=== PATIENT | female | born 1945 | race Caucasian/White ===

== ENCOUNTER → 2016-09-22 | Outpatient (CLI) | payer MEDICARE ==
--- NOTE | 2016-09-22 14:47 | MM ---
Reason for exam: additional evaluation requested from prior study. Last mammogram was performed 1 year ago. History: Patient is postmenopausal. Family history of breast cancer in sister at age 44, breast cancer in maternal aunt, and breast cancer in paternal aunt. Benign MG stereo VAD BX LT of the left breast, October 02, 2015. Benign left mammotome panel of the left breast, May 30, 2010. Benign right mammotome panel of the right breast, December 24, 2005. Physical Findings: Nurse did not find any significant physical abnormalities on exam. MG 3D Diag Mammo W/Cad NIKOLAI Bilateral CC and MLO view(s) were taken. Prior study comparison: September 26, 2015, left breast MG work up mamm w CAD LT. September 13, 2015, bilateral MG 3d screening mammo w/cad. There are scattered fibroglandular densities. Finding: There are typically benign calcifications in both breasts. Previous mammotome biopsy in the right and left breast. These results were verbally communicated with the patient and result sheet given to the patient on 09/22/16. ASSESSMENT: Benign, BI-RAD 2 RECOMMENDATION: Routine screening mammogram of both breasts in 1 year. Manage patient on a clinical basis.
== END | disposition home or self-care (01) ==
LOC: RADMAMWWP 13:18
PROVIDERS: ATTEND Internal Medicine
DX: R92.8 Other abnormal and inconclusive findings on diagnostic imaging of breast (principal)
CPT/HCPCS: G0204; G0279

== ENCOUNTER → 2016-10-29 | Outpatient (CLI) | payer MEDICARE ==
--- NOTE | 2016-10-29 15:07 | XR ---
EXAMINATION TYPE: XR lumbosacral spine min 4V DATE OF EXAM: 10/29/2016 CLINICAL HISTORY: pain COMPARISON: NONE TECHNIQUE: Frontal, lateral, and oblique images of the lumbar spine are obtained. FINDINGS: There are 5 lumbar type vertebral bodies identified. The lumbar spine shows satisfactory alignment without evidence of acute fracture or dislocation. Vertebral body heights are within normal limits. Severe disc space narrowing at L5-S1 with vacuum discs. Mild degenerative narrowing at the r emaining levels. Severe lower lumbar facet joint arthropathy. Grade 1 anterolisthesis L4 and L5. Th e overlying soft tissue appears unremarkable. IMPRESSION: 1. Degenerative changes as noted. 2. Grade 1 anterolisthesis.
== END | disposition home or self-care (01) ==
LOC: RADXRYALE 10:22
PROVIDERS: ATTEND Internal Medicine
DX: M43.17 Spondylolisthesis, lumbosacral region (principal); M47.817 Spondylosis without myelopathy or radiculopathy, lumbosacral region; M54.32 Sciatica, left side
CPT/HCPCS: 72110

== ENCOUNTER → 2018-04-02 | Outpatient (CLI) | payer MEDICARE ==
--- NOTE | 2018-04-02 11:04 | CT ---
EXAMINATION TYPE: CT brain wo/w con DATE OF EXAM: 04/02/2018 COMPARISON: 10/07/2014 CT brain INDICATION: Headaches DLP: 2108.4 mGycm, Automated exposure control for dose reduction was used. CONTRAST: None CT of the brain is performed utilizing 3 mm thick sections through the posterior fossa and 3 mm thick sections through the remaining calvarium. Study is performed within 24 hours of arrival to the hosp ital. No abnormal hyperdensity is present to suggest an acute intracranial hemorrhage. No mass lesion is evident. No acute infarcts are evident. Ventricles and sulci are appropriate for the patient age. No abnormal enhancement is evident. Paranasal sinuses and mastoid air cells within the [id number] are clear. IMPRESSIONS: 1. Normal pre and postcontrast CT Brain
== END | disposition home or self-care (01) ==
LOC: RADCTMAIN 08:11
PROVIDERS: ATTEND Internal Medicine
DX: G44.85 Primary stabbing headache (principal)
CPT/HCPCS: 82565; 84520; 70470; 36415; Q9967

== ENCOUNTER 2018-08-03 12:48 | Day surgery (SDC) | payer MEDICARE ==
[~2018-08-03 12:48] MED LIST: ceFAZolin IN SWFI 2 GM/20 ML SYRINGE IVP STA
[2018-08-03 13:14] VITALS: RESP 18; TEMP 98.1
[2018-08-03 13:46] LABS: INR 4.3 (<1.2); Prothrombin Time 41.7 sec (9.0-12.0)
[2018-08-03] MEDS ORDERED: LIDOCAINE 1% INJ 10MG/ML (20 ML MDV) ONE ×2 (17:01→17:09)
[2018-08-03] MEDS ORDERED: LIDOCAINE 1% INJ 10MG/ML (20 ML MDV) SQ ONE (17:18)
--- NOTE | 2018-08-03 17:26 | P.PCN ---
Preoperative Diagnosis: Loop explant under sedation and local anesthesia. Patient was brought to the EP lab in a fasting state. Written informed consent was obtained prior to the procedure. The subcutaneous device was successfully explanted under local anesthesia. Preoperative antibiotics were administered. The wound was closed in layers and dressed per protocol. Result: Successful loop monitor explantation. Patient underwent EP procedure under conscious sedation/moderate sedation, monitoring of the level of consciousness and physiologic parameters including but not limited to vital signs and oxygenation. Patient tolerated the procedure well without any acute complications. Start time: 517 Stop time: 524
[2018-08-03 17:46] VITALS: BP 183/84; PULSE 70
== END 2018-08-03 17:43 | disposition home or self-care (01) ==
LOC: CATHEP 12:48
PROVIDERS: ATTEND Internal Medicine Clinical Cardiac Electrophysiology
DX: I48.0 Paroxysmal atrial fibrillation (principal); I10 Essential (primary) hypertension; E78.5 Hyperlipidemia, unspecified
CPT/HCPCS: 33286; 85610; J0690 ×2; J2001

== ENCOUNTER 2019-10-02 15:19 | Emergency (ER) | payer MEDICARE ==
[2019-10-02 15:28] VITALS: TEMP 97.9
--- NOTE | 2019-10-02 16:47 | CT ---
EXAMINATION TYPE: CT brain [place] wo con DATE OF EXAM: 10/02/2019 COMPARISON: 10/07/2014 HISTORY: Fall injury Headache. Neck pain CT DLP: 1571.2 mGycm Automated exposure control for dose reduction was used. Images of the cervical spine and brain performed with no contrast. Ventricles have normal size. There is no mass effect nor midline shift. There is no sign of intracran ial hemorrhage. The calvarium is intact. There is no evidence of cerebral edema. The skull base is in tact. There is incomplete pneumatization of the mastoid sinuses. Cervical vertebra have normal alignment. There is mild hypertrophic facet arthropathy in the mid and lower cervical spine. There is no significant cervical spine disc space narrowing. Prevertebral soft tissues are intact. IMPRESSION: Negative CT scan of the brain. No change. Mild spondylotic changes in the cervical spine. No fracture seen. No adverse change. Articular facet fractures at C6-7 on the left side appear to have healed compared to old exam.
[2019-10-02] MEDS ORDERED: MORPHINE SULFATE 4 MG/ML SYRINGE IVP STA (16:57)
--- NOTE | 2019-10-02 16:57 | ED ---
Fall HPI - General Chief Complaint: Fall Stated Complaint: Fall Time Seen by Provider: 10/02/19 15:24 Source: patient, EMS Mode of arrival: EMS - History of Present Illness Initial Comments: This is a 74-year-old female DF status post fall fall her right side on Coumadin. Fall from standing she doesn't think she hit her head no loss of consciousness. No neck pain is complaining of right shoulder pain severe. 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: yes, by family Place Fall Occurred: home Loss of Consciousness: none Prolonged Down Time?: no Symptoms Prior to Fall: none Location - Extremities: Right: Shoulder Severity: severe Severity scale (1-10): 7 Quality: stabbing Context: tripped/slipped Associated Symptoms: denies - Related Data Home Medications Medication Instructions Recorded Confirmed Atorvastatin [Lipitor] 20 mg PO HS 10/07/14 08/03/18 Citalopram Hydrobromide [CeleXA] 20 mg PO HS 10/07/14 08/03/18 Omeprazole [PriLOSEC] 20 mg PO QAM 10/07/14 08/03/18 Propafenone HCl [Rythmol] 150 mg PO TID 10/07/14 08/03/18 lisinopriL [Zestril] 5 mg PO BID 10/07/14 08/03/18 Aspirin EC [Ecotrin Low Dose] 81 mg PO HS 02/28/15 08/03/18 Metoprolol Succinate [Toprol XL] 50 mg PO HS 02/28/15 08/03/18 Warfarin [Coumadin] 5 mg PO HS 08/03/18 08/03/18 Allergies Allergy/AdvReac Type Severity Reaction Status Date / Time No Known Allergies Allergy Verified 03/01/15 11:34 Review of Systems ROS Statement: Those systems with pertinent positive or pertinent negative responses have been documented in the HPI. ROS Other: All systems not noted in ROS Statement are negative. 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 History of Any Multi-Drug Resistant Organisms: None Reported Past Surgical History: Appendectomy, Cardiac Ablation, Cholecystectomy, Heart Catheterization, Hysterectomy Additional Past Surgical History / Comment(s): LOOP RECORDER X2. Past Anesthesia/Blood Transfusion Reactions: No Reported Reaction Additional Past Anesthesia/Blood Transfusion Reaction / Comment(s): PTS SISTER HAD SEVERE SWELLING WITH A BLOOD TRANSFUSION. Past Psychological History: Depression Smoking Status: Never smoker Past Alcohol Use History: None Reported Past Drug Use History: None Reported - Past Family History Sister(s) Family Medical History: Cancer Additional Family Medical History / Comment(s): BREAST CANCER WITH METS, ARRYTHMIA Brother(s) Additional Family Medical History / Comment(s): (2) BROTHERS- ARRYTHMIA General Exam Limitations: no limitations General appearance: alert, in no apparent distress Head exam: Present: atraumatic, normocephalic, normal inspection Eye exam: Present: normal appearance, PERRL, EOMI. Absent: scleral icterus, conjunctival injection, periorbital swelling ENT exam: Present: normal exam, mucous membranes moist Neck exam: Present: normal inspection. Absent: tenderness, meningismus, lymphadenopathy Respiratory exam: Present: normal lung sounds bilaterally. Absent: respiratory distress, wheezes, rales, rhonchi, stridor Cardiovascular Exam: Present: regular rate, normal rhythm, normal heart sounds. Absent: systolic murmur, diastolic murmur, rubs, gallop, clicks GI/Abdominal exam: Present: soft, normal bowel sounds. Absent: distended, tenderness, guarding, rebound, rigid Extremities exam: Present: normal inspection, full ROM, normal capillary refill. Absent: tenderness, pedal edema, joint swelling, calf tenderness Back exam: Present: normal inspection Neurological exam: Present: alert, oriented X3, CN II-XII intact Psychiatric exam: Present: normal affect, normal mood Skin exam: Present: warm, dry, intact, normal color. Absent: rash Course Vital Signs 10/02/19 10/02/19 15:20 17:36 Temperature 97.9 F Pulse Rate 70 72 Respiratory 17 18 Rate Blood Pressure 152/95 O2 Sat by Pulse 98 97 Oximetry - Reevaluation(s) Reevaluation #1: 10/02/19 16:57 Medical records reviewed Reevaluation #2: 10/02/19 17:56 Patient has adequate pain control Procedures - Orthopedic Splinting/Casting Injury #1 Side: right Upper Extremity Injury Location: shoulder Upper Extremity Immobilizer: sling/shoulder immobilizer Medical Decision Making - Medical Decision Making 74 female status post trip and fall at [facility] complaining of right shoulder pain right humerus fracture patient can be discharged home placed in sling - Radiology Data Radiology results: report reviewed (CT brain C-spine negative x-ray right shoulder positive for humerus fracture), image reviewed Disposition Clinical Impression: Fall, Closed right humeral fracture Disposition: HOME SELF-CARE Condition: Good Instructions (If sedation given, give patient instructions): Fall Prevention for Older Adults (ED), Proximal Humerus Fracture (ED) Is patient prescribed a controlled substance at d/c from ED?: No Referrals: Balta Galindo MD [STAFF PHYSICIAN] - 1-2 days
--- NOTE | 2019-10-02 17:34 | XR ---
EXAMINATION TYPE: XR shoulder complete RT DATE OF EXAM: 10/02/2019 COMPARISON: NONE HISTORY: Pain TECHNIQUE: 3 views FINDINGS: There is nondisplaced transverse fracture of the humeral neck. There is slight impaction. T here is no dislocation. Scapula is intact. The AC joint is intact. IMPRESSION: Acute slightly impacted nondisplaced fracture of the humeral neck.
--- NOTE | 2019-10-02 17:35 | XR ---
EXAMINATION TYPE: XR chest 1V DATE OF EXAM: 10/02/2019 COMPARISON: 12/10/2012 HISTORY: Fall. Pain. TECHNIQUE: FINDINGS: There is no heart failure nor confluent pneumonic infiltrate. Costophrenic angles are clear . Thoracic aorta is atheromatous. The bony thorax is intact. There is no evidence of pneumothorax. IMPRESSION: No active cardiopulmonary disease. No change.
[2019-10-02 17:36] VITALS: RESP 18
[2019-10-02] MEDS ORDERED: traMADol 50 MG STARTER PACK 3 TAB BTL PO STA (17:54)
[2019-10-02] MEDS ORDERED: ACET/COD 300 MG/30 MG STARTER PACK 6 TAB BTL PO STA (17:54)
[2019-10-02] MEDS ORDERED: KETOROLAC 15 MG/ML 1 ML VIAL IVP STA (17:54)
[2019-10-02 18:21] VITALS: BP 150/77; PULSE 64
== END 2019-10-02 18:26 | disposition home or self-care (01) ==
LOC: EC 15:19
DX: S42.294A Other nondisplaced fracture of upper end of right humerus, initial encounter for closed fracture (principal); F32.9 Major depressive disorder, single episode, unspecified; I48.92 Unspecified atrial flutter; K21.9 Gastro-esophageal reflux disease without esophagitis; E78.5 Hyperlipidemia, unspecified; I10 Essential (primary) hypertension; Z79.899 Other long term (current) drug therapy; Z79.01 Long term (current) use of anticoagulants; Z95.5 Presence of coronary angioplasty implant and graft; W18.30XA Fall on same level, unspecified, initial encounter; Y92.512 Supermarket, store or market as the place of occurrence of the external cause
CPT/HCPCS: 73030; 71045; 72125; 70450; 99284; 96374; 96375; J2270; J1885

== ENCOUNTER → 2019-11-01 | Outpatient (CLI) | payer MEDICARE ==
[2019-11-01 15:19] LABS: HCT 32.7 % (34.0-46.0); HGB 10.4 gm/dL (11.4-16.0); Hypochromasia Slight; MCH 28.6 pg (25.0-35.0); MCHC 31.6 g/dL (31.0-37.0); MCV 90.3 fL (80.0-100.0); Mean Platelet Volume 8.1; Platelet Count 226 k/uL (150-450); RBC 3.62 m/uL (3.80-5.40); RDW 14.7 % (11.5-15.5); WBC 5.5 k/uL (3.8-10.6)
[2019-11-01 15:32] LABS: Magnesium 1.9 mg/dL (1.6-2.3)
== END | disposition home or self-care (01) ==
LOC: LABPAT 14:51
PROVIDERS: ATTEND Internal Medicine Clinical Cardiac Electrophysiology
DX: Z01.818 Encounter for other preprocedural examination (principal); R55 Syncope and collapse
CPT/HCPCS: 82565; 83735; 84520; 85027

== ENCOUNTER → 2019-11-07 | Day surgery (SDC) | payer MEDICARE ==
[2019-11-04 09:23] VITALS: BMI 30.1
[~2019-11-07] MED LIST changes: +LIDOCAINE 1% INJ 10MG/ML (20 ML MDV) SQ ONE; +SODIUM CHLORIDE 0.9% 1,000 ML IV SCH; -ceFAZolin IN SWFI 2 GM/20 ML SYRINGE IVP STA; +fentaNYL (PF) 50 MCG/ML 2 ML AMP IVP ONE; +fentaNYL (PF) 50 MCG/ML 2 ML AMP ONE
[2019-11-07 07:58] VITALS: RESP 18; TEMP 98.5
[2019-11-07 08:06] LABS: INR 1.8 (<1.2)
--- NOTE | 2019-11-07 10:37 | P.PCN ---
Preoperative Diagnosis: Loop monitor implant Primary physicians: Process Specialist: Dr. Chamorro Indication: Dr. Claros Patient was brought to the EP lab in a fasting state. Written informed consent was obtained prior to the procedure. The left pectoral area was prepped and draped per protocol. Intravenous antibiotic was administered preoperatively. A subcutaneous Loop monitor was implanted successfully and the wound was closed per protocol. The device was programmed to detect significant lara- arrhythmic and tachy-arrhythmic events, per protocol. Device and programming details: Single a protocol Patient underwent EP procedure under conscious sedation/moderate sedation, monitoring of the level of consciousness and physiologic parameters including bu t not limited to vital signs and oxygenation. Patient tolerated the procedure well without any acute complications. Start time: 1022 Stop time: 1031
--- NOTE | 2019-11-07 10:39 | P.PRLE ---
RE: Yoselin Vaz Dear Chasitybrandie Wyatt underwent implantation of loop monitor for evaluation of syncope and we have made adjustments in her medications and if she has any tachybradycardia ar rhythmias I will send you a follow-up note. She does have a history of anemia and is on anticoagulation Thank you for entrusting me with the care of the patient Warm regards Sincerely John Chamorro
[2019-11-07 10:59] VITALS: BP 119/69; PULSE 68
== END ==
LOC: CATHEP 07:13
PROVIDERS: ATTEND Internal Medicine Clinical Cardiac Electrophysiology
DX: R55 Syncope and collapse (principal); R06.02 Shortness of breath; R53.83 Other fatigue; I48.0 Paroxysmal atrial fibrillation; I10 Essential (primary) hypertension; E78.5 Hyperlipidemia, unspecified; Z87.891 Personal history of nicotine dependence; Z79.01 Long term (current) use of anticoagulants; Z82.49 Family history of ischemic heart disease and other diseases of the circulatory system; Z72.0 Tobacco use; Z79.82 Long term (current) use of aspirin; Z79.899 Other long term (current) drug therapy
CPT/HCPCS: 33285; 85610; C1764; J0690; J2001; J3010

== ENCOUNTER → 2020-05-28 | Outpatient (CLI) | payer MEDICARE | END | disposition home or self-care (01) | LOC: LABWHC1 17:01 | PROVIDERS: ATTEND Internal Medicine | DX: R50.9 Fever, unspecified (principal); M79.10 Myalgia, unspecified site | CPT/HCPCS: U0003; C9803 ==

== ENCOUNTER → 2020-07-06 | Outpatient (CLI) | payer MEDICARE ==
[2020-07-06 20:52] LABS: African American GFR (CKD) 84.8 (60.0-200.0); Albumin/Globulin Ratio 1.82 (1.60-3.17); Calcium 8.8 mg/dL (8.7-10.3); Globulin 2.2 g/dL (1.6-3.3); Non-African American GFR(CKD) 73.1 (60.0-200.0); Potassium 4.3 mmol/L (3.5-5.5); Total Bilirubin 0.8 mg/dL (0.2-1.2); Total Protein 6.2 g/dL (6.2-8.2)
== END | disposition home or self-care (01) ==
LOC: LABWHC1 12:07
PROVIDERS: ATTEND Internal Medicine Clinical Cardiac Electrophysiology
DX: I48.0 Paroxysmal atrial fibrillation (principal)
CPT/HCPCS: 36415; 80053

== ENCOUNTER → 2020-12-20 | Outpatient (CLI) | payer MEDICARE ==
--- NOTE | 2020-12-21 07:58 | XR ---
EXAMINATION TYPE: XR chest 2V DATE OF EXAM: 12/20/2020 COMPARISON: 10/02/2019 INDICATION: Cough TECHNIQUE: Frontal and lateral views of the chest are obtained. FINDINGS: The heart size is normal. The pulmonary vasculature is normal. The lungs are clear. There is a rounded density in the frontal projection at the midline may be a sm all hiatal hernia. Heart is not identified on the lateral view. IMPRESSION: 1. No acute pulmonary process. 2. Hiatal hernia likely present.
== END | disposition home or self-care (01) ==
LOC: RADXRYALE 16:20
PROVIDERS: ATTEND Internal Medicine
DX: R05.9 Cough, unspecified (principal)
CPT/HCPCS: 71046

== ENCOUNTER 2021-05-13 23:18 | Inpatient (IN) | payer MEDICARE ==
[2021-05-13] MEDS ORDERED: DILTIAZEM DRIP BOLUS FROM BAG 1 MG SOLN IV ONE (23:23)
--- NOTE | 2021-05-13 23:26 | ED ---
General Adult HPI - General Stated complaint: high heart rate Time Seen by Provider: 05/13/21 23:23 Source: patient, EMS, old records reviewed (Reviewed EMS rhythm strips) Mode of arrival: EMS Limitations: no limitations - History of Present Illness Initial comments: Patient is a pleasant 75-year-old female presenting to the emergency Department with palpitations. Onset of symptoms was around 3 hours ago. No chest pain. No dyspnea. Patient does have some fatigue. Patient does have history of similar symptoms previously and has previously been cardioverted. EMS provided adenosine 3 doses. Heart rate was slow down without visualized fibrillation. - Related Data Home Medications Medication Instructions Recorded Confirmed Atorvastatin [Lipitor] 40 mg PO HS 10/07/14 11/04/19 Citalopram Hydrobromide [CeleXA] 20 mg PO HS 10/07/14 11/07/19 Omeprazole [PriLOSEC] 20 mg PO BID 10/07/14 11/07/19 Propafenone HCl [Rythmol] 150 mg PO BID 10/07/14 11/07/19 lisinopriL [Zestril] 10 mg PO HS 10/07/14 11/07/19 Aspirin EC [Ecotrin Low Dose] 81 mg PO HS 02/28/15 11/04/19 Metoprolol Succinate [Toprol XL] 25 mg PO HS 02/28/15 11/07/19 Warfarin [Coumadin] 2.5 mg PO [id number] 08/03/18 11/07/19 Calcium Carbonate [Calcium] 1,200 mg PO DAILY 11/04/19 11/07/19 Warfarin [Coumadin] 5 mg PO SUTH 11/04/19 11/07/19 Allergies Allergy/AdvReac Type Severity Reaction Status Date / Time No Known Allergies Allergy Verified 05/13/21 23:25 Review of Systems ROS Statement: Those systems with pertinent positive or pertinent negative responses have been documented in the HPI. ROS Other: All systems not noted in ROS Statement are negative. Constitutional: Denies: fever Eyes: Denies: eye pain ENT: Denies: ear pain Respiratory: Denies: dyspnea Cardiovascular: Reports: palpitations. 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 Past Anesthesia/Blood Transfusion Reactions: No Reported Reaction, Motion Sickness Additional Past Anesthesia/Blood Transfusion Reaction / Comment(s): PTS SISTER HAD SEVERE SWELLING WITH A BLOOD TRANSFUSION. Smoking Status: Never smoker - Past Family History Sister(s) Family Medical History: Cancer, Myocardial Infarction ([place]) Additional Family Medical History / Comment(s): BREAST CANCER WITH METS, ARRYTHMIA Brother(s) Additional Family Medical History / Comment(s): (3) BROTHERS- ARRYTHMIA General Exam Limitations: no limitations General appearance: alert, in no apparent distress Head exam: Present: normocephalic Eye exam: Present: normal appearance Neck exam: Present: normal inspection Respiratory exam: Present: normal lung sounds bilaterally Cardiovascular Exam: Present: tachycardia Expanded Peripheral pulses: 2+: Radial (R), Radial (L), Posterior Tibialis (R), Posterior Tibialis (L) GI/Abdominal exam: Present: soft. Absent: tenderness Extremities exam: Present: normal inspection Neurological exam: Present: alert Psychiatric exam: Present: normal affect, normal mood Skin exam: Present: normal color Course Vital Signs 05/13/21 23:19 Temperature 97.6 F Pulse Rate 190 H Respiratory 24 Rate Blood Pressure 115/82 O2 Sat by Pulse 96 Oximetry - Reevaluation(s) Reevaluation #1: 05/14/21 00:01 H a flutter with rate of 101. QRS 87. QT 355. QTC 413. Normal axis. Normal QRS. No acute ST change. EKG Findings - EKG Comments: EKG Findings:: tachycardia 3-192. QRS 80. QT 224. QTC 322. Normal axis. Normal QRS. Lateral ST depression. Medical Decision Making - Medical Decision Making Patient reevaluated and updated. Heart rate improved. Patient remains in atr ial flutter. Dr. Samuels has been paged for admission for Dr. Claros - Lab Data Result diagrams: 05/13/21 23:38 Lab Results 05/13/21 05/13/21 05/13/21 Range/Units 23:38 23:38 23:38 WBC 6.3 (3.8-10.6) k/uL RBC 4.16 (3.80-5.40) m/uL Hgb 13.0 (11.4-16.0) gm/dL Hct 39.6 (34.0-46.0) % MCV 95.0 (80.0-100.0) fL MCH 31.2 (25.0-35.0) pg MCHC 32.8 (31.0-37.0) g/dL RDW 13.8 (11.5-15.5) % Plt Count 183 (150-450) k/uL MPV 9.3 Neutrophils % 55 % Lymphocytes % 33 % Monocytes % 6 % Eosinophils % 3 % Basophils % 2 % Neutrophils # 3.5 (1.3-7.7) k/uL Lymphocytes # 2.0 (1.0-4.8) k/uL Monocytes # 0.4 (0-1.0) k/uL Eosinophils # 0.2 (0-0.7) k/uL Basophils # 0.1 (0-0.2) k/uL PT 13.9 H (9.0-12.0) sec INR 1.3 H (<1.2) APTT 35.2 H (22.0-30.0) sec Troponin I 0.047 H* (0.000-0.034) ng/mL - Radiology Data Radiology results: image reviewed (Chest x-ray does show some increased interstitial density.) Critical Care Time Critical Care Time: Yes Total Critical Care Time: 33 Disposition Clinical Impression: Atrial flutter, Tachycardia Disposition: ADMITTED IP TO THIS [facility] Condition: Serious Is patient prescribed a controlled substance at d/c from ED?: No Referrals: Chasity Claros MD [Primary Care Provider] - 1-2 days Decision Time: 00:31
[2021-05-13] MEDS ORDERED: DILTIAZEM 125 MG in SODIUM CHLORIDE 0.9% 100 ML IV SCH (23:30)
[2021-05-13 23:46] LABS: Basophils # (A) 0.1 k/uL (0-0.2); Basophils % (A) 2 %; Eosinophils # (A) 0.2 k/uL (0-0.7); Eosinophils % (A) 3 %; HCT 39.6 % (34.0-46.0); Lymphocytes % (A) 33 %; MCH 31.2 pg (25.0-35.0); MCHC 32.8 g/dL (31.0-37.0); Mean Platelet Volume 9.3; Monocytes # (A) 0.4 k/uL (0-1.0); Monocytes % (A) 6 %; Neutrophils # (A) 3.5 k/uL (1.3-7.7); Neutrophils % (A) 55 %; Platelet Count 183 k/uL (150-450); RBC 4.16 m/uL (3.80-5.40); RDW 13.8 % (11.5-15.5); WBC 6.3 k/uL (3.8-10.6)
--- NOTE | 2021-05-13 23:58 | XR ---
EXAMINATION TYPE: XR chest 1V portable DATE OF EXAM: 05/13/2021 COMPARISON: 12/20/2020 HISTORY: Dysrhythmia TECHNIQUE: FINDINGS: Heart is enlarged. There is hiatal hernia. Lungs are clear of consolidation. There is some coarsening of interstitial markings IMPRESSION: Increased interstitial density compared to old exam. This could be some minimal heart amish lure.
[2021-05-14 00:21] LABS: INR 1.3 (<1.2); Partial Thromboplastin Time 35.2 sec (22.0-30.0); Prothrombin Time 13.9 sec (9.0-12.0)
[2021-05-14] MEDS ORDERED: HEPARIN SODIUM 1,000 UN/ML (10ML VL) IV PRN (00:28)
[2021-05-14] MEDS ORDERED: HEPARIN SOD,PORK IN 0.45% NACL 25,000 UNIT in 0.45% NACL 1 250ML.BAG IV SCH (00:30)
[2021-05-14] MEDS ORDERED: NALOXONE 0.4 MG/ML 1 ML VIAL IV PRN (00:31)
[2021-05-14 00:54] LABS: Albumin 3.9 g/dL (3.5-5.0); Calcium 8.6 mg/dL (8.4-10.2); Magnesium 1.9 mg/dL (1.6-2.3); Potassium 3.5 mmol/L (3.5-5.1); Total Bilirubin 0.5 mg/dL (0.2-1.3); Total Protein 6.6 g/dL (6.3-8.2)
[2021-05-14 01:10] LABS: T4, Free (Free Thyroxine) 1.37 ng/dL (0.78-2.19)
[2021-05-14] MEDS: ACETAMINOPHEN TAB 325 MG TAB PO PRN ×2 (09:04→15:41)
[2021-05-14] MEDS: METOPROLOL TARTRATE 25 MG TAB PO SCH ×3 (09:04→20:11)
[2021-05-14] MEDS: RIVAROXABAN 20 MG TAB PO SCH ×2 (09:04→09:08)
[2021-05-14] MEDS: PROPAFENONE 150 MG TAB PO SCH ×2 (09:18→20:11)
--- NOTE | 2021-05-14 10:42 | P.HPIM ---
History of Present Illness This is a pleasant 75 his old female with past medical history off Atrial Flutte XARELTO AND PROPAFENONE status post cardiac ablation procedure, GERD/Reflux, Hyperlipidemia, Hypertension,fx rt shoulder 10/02/19 wears sling She presents because she did not feel right, she was dizzy lightheaded with only minimal and mild chest discomfort which is resolved now, currently she is complaining only for mild headache. Patient checked her pulse at home at noticed to be passed so she decided to come to emergency room She denies dyspnea or coughing, no GI or urinary symptoms, no weakness or numbness She denies smoking, alcohol or illicit drugs She was compliant with her medication Her sterile technician is Dr. Leal On the presentation she was tachycardic 190, heart rate currently improved down to 82, rest of vitals are stable and patient is afebrile. Labs including CBC, INR, BMP and liver enzymes are unremarkable. Troponin elevated 0.04 and 0.2. TSH normal 1.8. EKG showing supraventricular tachycardia with a rate of 192. Chest x-ray: Showed possible minimal heart failure with increased bilateral interstitial densities Patient was started on Cardizem drip Review of Systems CONSTITUTIONAL: No fever, no malaise, no fatigue. HEENT: No recent visual problems or hearing problems. Denied any sore throat. CARDIOVASCULAR: No orthopnea, PND, no palpitations, no syncope. PULMONARY: No shortness of breath, no cough, no hemoptysis. GASTROINTESTINAL: No diarrhea, no nausea, no vomiting, no abdominal pain. Normoactive bowel sounds. NEUROLOGICAL: No headaches, no weakness, no numbness. HEMATOLOGICAL: Denies any bleeding or petechiae. GENITOURINARY: Denies any burning micturition, frequency, or urgency. MUSCULOSKELETAL/RHEUMATOLOGICAL: Denies any joint pain, swelling, or any muscle pain. ENDOCRINE: Denies any polyuria or polydipsia. 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 Past Anesthesia/Blood Transfusion Reactions: No Reported Reaction, Motion Si ckness Additional Past Anesthesia/Blood Transfusion Reaction / Comment(s): PTS SISTER HAD SEVERE SWELLING WITH A BLOOD TRANSFUSION. Past Psychological History: Depression Smoking Status: Never smoker Past Alcohol Use History: None Reported Past Drug Use History: None Reported - Past Family History Sister(s) Family Medical History: Cancer, Myocardial Infarction ([place]) Additional Family Medical History / Comment(s): BREAST CANCER WITH METS, ARRYTHMIA Brother(s) Additional Family Medical History / Comment(s): (3) BROTHERS- ARRYTHMIA Medications and Allergies Home Medications Medication Instructions Recorded Confirmed Type Atorvastatin [Lipitor] 40 mg PO HS 10/07/14 05/14/21 History Citalopram Hydrobromide [CeleXA] 20 mg PO HS 10/07/14 05/14/21 History Omeprazole [PriLOSEC] 20 mg PO BID 10/07/14 05/14/21 History Propafenone HCl [Rythmol] 150 mg PO BID 10/07/14 05/14/21 History Salas/D3/Mag11/Zinc/Acid Correction Hand/John/Bor 1 tab PO BID 05/14/21 05/14/21 History [Caltrate 600+D Plus Tablet] Metoprolol Succinate [Toprol XL] 12.5 mg PO HS 05/14/21 05/14/21 History Rivaroxaban [Xarelto] 20 mg PO DAILY 05/14/21 05/14/21 History lisinopriL [Zestril] 10 mg PO HS 05/14/21 05/14/21 History Allergies Allergy/AdvReac Type Severity Reaction Status Date / Time No Known Allergies Allergy Verified 05/13/21 23:25 Physical Exam Vitals: Vital Signs Temp Pulse Pulse Resp BP BP Pulse Ox 05/14/21 08:00 98 F 82 18 122/78 93 L 05/14/21 03:34 98.1 F 64 18 100/56 98 05/14/21 01:15 97.7 F 104 H 18 120/79 96 05/14/21 01:10 98 F 100 22 112/78 97 05/13/21 23:19 97.6 F 190 H 24 115/82 96 Intake and Output 05/13/21 05/14/21 05/14/21 22:59 06:59 14:59 Other: # Voids 1 Weight 106.1 kg GENERAL: The patient is alert and oriented x3, not in any acute distress. Well developed, well nourished. HEENT: Pupils are round and equally reacting to light. EOMI. No scleral icterus. No conjunctival pallor. Normocephalic, atraumatic. No pharyngeal erythema. No thyromegaly. CARDIOVASCULAR: S1 and S2 present. No murmurs, rubs, or gallops. PULMONARY: Chest is clear to auscultation, no wheezing or crackles. ABDOMEN: Soft, nontender, nondistended, normoactive bowel sounds. No palpable organomegaly. MUSCULOSKELETAL: No joint swelling or deformity. EXTREMITIES: No cyanosis, clubbing, or pedal edema. NEUROLOGICAL: Gross neurological examination did not reveal any focal deficits. SKIN: No rashes. No petechiae Results CBC & Chem 7: 05/13/21 23:38 05/13/21 23:38 Labs: Abnormal Lab Results - Last 24 Hours (Table) 05/13/21 05/13/21 05/13/21 Range/Units 23:38 23:38 23:38 PT 13.9 H (9.0-12.0) sec INR 1.3 H (<1.2) APTT 35.2 H (22.0-30.0) sec Sodium 136 L (137-145) mmol/L Glucose 130 H (74-99) mg/dL Troponin I 0.047 H* (0.000-0.034) ng/mL 05/14/21 Range/Units 03:53 PT (9.0-12.0) sec INR (<1.2) APTT (22.0-30.0) sec Sodium (137-145) mmol/L Glucose (74-99) mg/dL Troponin I 0.236 H* (0.000-0.034) ng/mL Thrombosis Risk Factor Assmnt - Choose All That Apply Each Factor Represents 1 point: Obesity (BMI >25) Each Risk Factor Represents 2 Points: Age 61-74 years Other congenital or acquired thrombophilia - If yes, enter type in comment: No Thrombosis Risk Factor Assessment Total Risk Factor Score: 3 Thrombosis Risk Factor Assessment Level: Moderate Risk Assessment and Plan Assessment: A. fib with RVR on Xarelto and propafenone at home status post cardiac ablation Hypertension Hyperlipidemia History of GERD Plan: This is a pleasant 75 his old female who presents with A. fib and RVR Cardiology consult Continue with Xarelto Continue with Cardizem drip. Continue with propafenone, which is home medication. Continue with metoprolol added by sterile technician team. Check echocardiogram Labs and medication were reviewed.. Continue same treatment. Continue with symptomatic treatment. Resume home medication. Monitor lytes and vitals. DVT and GI prophylaxis. Further recommendations depends on the clinical course of the patient DVT prophylaxis:Xarelto GI Prophylaxis: Pepcid
--- NOTE | 2021-05-14 11:41 | P.CRDCN ---
History of Present Illness Consult date: 05/14/21 History of present illness: HISTORY OF PRESENT ILLNESS: This is a 75-year-old female with a past medical history significant for hypertension, hyperlipidemia, syncope, and paroxysmal atrial fibrillation/typical atrial flutter with previous ablation. Patient follows in the office with Dr. Chamorro. We have been asked to see the patient in consult ation for aflutter. Patient examined at the bedside. Patient states over the past 2-3 days she has not been feeling well overall. She reports having some dizziness as well. She states yesterday she began having palpitations so she presented to the emergency room. She denied having any chest pain or pressure. She denied any shortness of breath. The patient was found to be in a flutter with RVR. Patient was started on IV Cardizem and IV heparin. This morning telemetry reveals atrial flutter with controlled ventricular rate in the 70s. * EKG reveals atrial flutter versus * Chest xray increased interstitial density compared to exam. This could be some minimal heart failure. * Laboratory data: WBC 6.3. Hemoglobin 13.0. Platelet count 183. Sodium 136. Potassium 3.5. BUN 16. Creatinine 0.77. Magnesium 1.9. Troponin 0.047. 0.236. TSH 1.820. * Current home cardiac medications include Rythmol 150 mg twice a day, Lipitor 40 mg at night, Xarelto 20 mg daily, metoprolol succinate 12.5 mg at night, lisinopril 10 mg at night * Most recent echocardiogram obtained at the office in July 2020 revealed ejection fraction 55%, mild MR, mild TR * Patient underwent Lexiscan stress test in July 2017 which was negative for ischemia * Cardiac catheterization history: 2006 revealing EF 60% with mild CAD. REVIEW OF SYSTEMS: At the time of my exam: CONSTITUTIONAL: Denies fever or chills. HEENT: Denies blurred vision, vision changes, or eye pain. Denies hemoptysis CARDIOVASCULAR: Denies chest pain. Denies orthopnea. Denies PND. Denies palpitations RESPIRATORY: Denies shortness of breath. GASTROINTESTINAL: Denies abdominal pain. Denies nausea or vomiting. HEMATOLOGIC: Denies bleeding disorders. GENITOURINARY: Denies any blood in urine. SKIN: Denies pruitis. Denies rash. PHYSICAL EXAM: VITAL SIGNS: Reviewed. GENERAL: Well-developed in no acute distress. HEENT: Head is normocephalic. Pupils are equal, round. Sclerae anicteric. Mucous membranes of the mouth are moist. Neck supple. No JVD or thyromegaly LUNGS: Respirations even and unlabored. Lungs essentially clear to auscultation bilaterally. HEART: Irregular rate and rhythm. S1 and S2 heard. ABDOMEN: Soft. Nondistended. Nontender. EXTREMITIES: Normal range of motion. No clubbing or cyanosis. Peripheral pulses intact. No lower extremity edema NEUROLOGIC: Awake and alert. Oriented x 3. ASSESSMENT: Palpitations Typical atrial flutter with RVR Abnormal troponins, suspect secondary to a flutter with RVR, can not rule out underlying CAD History of atrial fibrillation/typical atrial flutter History of A. fib ablation Hypertension Hyperlipidemia History of syncope PLAN: Obtain 2D echo to assess cardiac structure and function TSH checked and within normal limits Discontinue IV Cardizem. Resume metoprolol. Increase dose to 25mg BID Decrease lisinopril to 5mg daily to allow for increase in rate controlling medications Continue telemetry monitoring Further recommendations pending patient course Nurse practitioner note has been reviewed by physician. Signing provider agrees with the documented findings, assessment, and plan of care. Past Medical History Past Medical History: Atrial Flutter, GERD/Reflux, Hyperlipidemia, Hypertension Additional Past Medical History / Comment(s): SEE [employer] H [employer] P, FREQUENT DIARREHA, PT STATES NO RIGHT EAR, fx rt shoulder 10/02/19 wears sling History of Any Multi-Drug Resistant Organisms: None Reported Past Surgical History: Appendectomy, Cardiac Ablation, Cholecystectomy, Heart Catheterization, Hysterectomy Additional Past Surgical History / Comment(s): LOOP RECORDER X2. Past Anesthesia/Blood Transfusion Reactions: No Reported Reaction, Motion Sickness Additional Past Anesthesia/Blood Transfusion Reaction / Comment(s): PTS SISTER HAD SEVERE SWELLING WITH A BLOOD TRANSFUSION. Past Psychological History: Depression Smoking Status: Never smoker Past Alcohol Use History: None Reported Past Drug Use History: None Reported - Past Family History Sister(s) Family Medical History: Cancer, Myocardial Infarction ([place]) Additional Family Medical History / Comment(s): BREAST CANCER WITH METS, ARRYTHMIA Brother(s) Additional Family Medical History / Comment(s): (3) BROTHERS- ARRYTHMIA Medications and Allergies Home Medications Medication Instructions Recorded Confirmed Type Atorvastatin [Lipitor] 40 mg PO HS 10/07/14 05/14/21 History Citalopram Hydrobromide [CeleXA] 20 mg PO HS 10/07/14 05/14/21 History Omeprazole [PriLOSEC] 20 mg PO BID 10/07/14 05/14/21 History Propafenone HCl [Rythmol] 150 mg PO BID 10/07/14 05/14/21 History Salas/D3/Mag11/Zinc/Chief Fundraising Officer/John/Bor 1 tab PO BID 05/14/21 05/14/21 History [Caltrate 600+D Plus Tablet] Metoprolol Succinate [Toprol XL] 12.5 mg PO HS 05/14/21 05/14/21 History Rivaroxaban [Xarelto] 20 mg PO DAILY 05/14/21 05/14/21 History lisinopriL [Zestril] 10 mg PO HS 05/14/21 05/14/21 History Allergies Allergy/AdvReac Type Severity Reaction Status Date / Time No Known Allergies Allergy Verified 05/13/21 23:25 Physical Exam Vitals: Vital Signs Temp Pulse Pulse Resp BP BP Pulse Ox 05/14/21 08:00 98 F 82 18 122/78 93 L 05/14/21 03:34 98.1 F 64 18 100/56 98 05/14/21 01:15 97.7 F 104 H 18 120/79 96 05/14/21 01:10 98 F 100 22 112/78 97 05/13/21 23:19 97.6 F 190 H 24 115/82 96 Intake and Output 05/13/21 05/14/21 05/14/21 22:59 06:59 14:59 Other: # Voids 1 Weight 106.1 kg Results 05/13/21 23:38 05/13/21 23:38 Cardiac Enzymes 05/13/21 05/13/21 05/14/21 Range/Units 23:38 23:38 03:53 AST 27 (14-36) U/L Troponin I 0.047 H* 0.236 H* (0.000-0.034) ng/mL Coagulation 05/13/21 Range/Units 23:38 PT 13.9 H (9.0-12.0) sec APTT 35.2 H (22.0-30.0) sec CBC 05/13/21 Range/Units 23:38 WBC 6.3 (3.8-10.6) k/uL RBC 4.16 (3.80-5.40) m/uL Hgb 13.0 (11.4-16.0) gm/dL Hct 39.6 (34.0-46.0) % Plt Count 183 (150-450) k/uL Comprehensive Metabolic Panel 05/13/21 Range/Units 23:38 Sodium 136 L (137-145) mmol/L Potassium 3.5 (3.5-5.1) mmol/L Chloride 106 (98-107) mmol/L Carbon Dioxide 23 (22-30) mmol/L BUN 16 (7-17) mg/dL Creatinine 0.77 (0.52-1.04) mg/dL Glucose 130 H (74-99) mg/dL Calcium 8.6 (8.4-10.2) mg/dL AST 27 (14-36) U/L ALT 19 (4-34) U/L Alkaline Phosphatase 75 (38-126) U/L Total Protein 6.6 (6.3-8.2) g/dL Albumin 3.9 (3.5-5.0) g/dL Current Medications Generic Name Dose Route Start Last Admin Trade Name Freq PRN Reason Stop Dose Admin Heparin Sodium (Porcine) 0 unit 05/14/21 00:28 Heparin Sodium 1,000 Un/Ml (10ml Vl) IV PER PROTOCOL PRN Low PTT Protocol Diltiazem HCl 125 mg/ Sodium 125 mls @ 5 mls/hr 05/13/21 23:30 05/13/21 23:35 Chloride IV 5 mg/hr .Q24H SHEELA 5 mls/hr Administration 5 MG/HR Heparin Sodium/Sodium Chloride 250 mls @ 10.005 mls/hr 05/14/21 00:30 05/14/21 00:55 25,000 unit/ Sodium Chloride IV 9.43 units/kg/hr .Q24H SHEELA 10.005 mls/hr Administration Protocol 9.43 UNITS/KG/HR Naloxone HCl 0.2 mg 05/14/21 00:31 Naloxone 0.4 Mg/Ml 1 Ml Vial IV Q2M PRN Opioid Reversal Intake and Output 05/13/21 05/14/21 05/14/21 22:59 06:59 14:59 Other: # Voids 1 Weight 106.1 kg 05/13/21 23:38 05/13/21 23:38
--- NOTE | 2021-05-14 11:59 | ECHOF ---
Referral Reason:LV function MEASUREMENTS -------- HEIGHT: 170.2 cm WEIGHT: 105.7 kg BP: RVIDd: 2.7 cm (< 3.3) IVSd: 1.3 cm (0.6 - 1.1) LVIDd: 3.7 cm (3.9 - 5.3) LVPWd: 1.3 cm (0.6 - 1.1) IVSs: 1.6 cm LVIDs: 2.8 cm LVPWs: 1.6 cm LAESV Index (A-L): 33.94 ml/m Ao Diam: 3.4 cm (2.0 - 3.7) AV Cusp: 1.8 cm (1.5 - 2.6) RAP: 5.00 mmHg RVSP: 30.57 mmHg FINDINGS -------- Atrial fibrillation. This was a technically adequate study. The left ventricular size is normal. There is mild concentric left ventricular hypertrophy. Overa ll left ventricular systolic function is low-normal with, an EF between 50 - 55 %. The right ventricle is normal in size. LA is moderately dilated 34-39 ml/m2 The right atrial size is normal. There is mild aortic valve sclerosis. There is no evidence of aortic regurgitation. Mild mitral regurgitation is present. Mild tricuspid regurgitation present. There is mild pulmonary hypertension. The right ventricular systolic pressure, as measured by Doppler, is 30.57mmHg. Trace/mild (physiologic) pulmonic regurgitation. Echo free space represents a pericardial fat pad. CONCLUSIONS -------- 1. The left ventricular size is normal. 2. There is mild concentric left ventricular hypertrophy. 3. Overall left ventricular systolic function is low-normal with, an EF between 50 - 55 %. 4. The right ventricle is normal in size. 5. LA is moderately dilated 34-39 ml/m2 6. The right atrial size is normal. 7. There is mild aortic valve sclerosis. 8. Mild mitral regurgitation is present. 9. Mild tricuspid regurgitation present. 10. There is mild pulmonary hypertension. 11. The right ventricular systolic pressure, as measured by Doppler, is 30.57mmHg. 12. Trace/mild (physiologic) pulmonic regurgitation. 13. Echo free space represents a pericardial fat pad. GALLERY INTERN: Dilia Kaur RDCS
[2021-05-14] MEDS ORDERED: NITROGLYCERIN SL TABS 0.4 MG TAB SUBLINGUAL PRN (12:47)
[2021-05-14] MEDS ORDERED: ALPRAZolam 0.5 MG TAB PO PRN (12:47)
[2021-05-14] MEDS ORDERED: ALPRAZolam 0.25 MG TAB PO PRN (12:47)
[2021-05-14] MEDS: lisinopriL 5 MG TAB PO SCH (20:11)
[2021-05-14] MEDS: ATORVASTATIN 40 MG TAB PO SCH (20:11)
[2021-05-14] MEDS: CITALOPRAM HYDROBROMIDE 20 MG TAB PO SCH (20:11)
[2021-05-14] MEDS ORDERED: lisinopriL 10 MG TAB PO SCH (21:00)
[2021-05-14] MEDS ORDERED: RIVAROXABAN 20 MG TAB PO SCH (21:00)
[2021-05-14] MEDS ORDERED: NON FORMULARY DRUG (Cal/D3/Mag11/Zinc/Cop/Mang/Bor [Caltrate 600+D Plus Tablet] 1 EACH Tab PO SCH (21:00)
[2021-05-14] MEDS: SODIUM CHLORIDE 0.9% 1,000 ML in EMPTY BAG 1 BAG IV SCH (23:00)
[2021-05-15] MEDS ORDERED: ATORVASTATIN 80 MG TAB PO ONE (05:00)
[2021-05-15] MEDS ORDERED: ASPIRIN 325 MG TAB PO ONE (05:00)
[2021-05-15] MEDS: METOPROLOL TARTRATE 25 MG TAB PO SCH ×2 (05:46→20:17)
[2021-05-15] MEDS: PROPAFENONE 150 MG TAB PO SCH ×2 (06:21→20:17)
[2021-05-15] MEDS ORDERED: HEPARIN SODIUM,PORCINE 2,500 UNIT in SODIUM CHLORIDE 0.9% 250 ML IRRIGATION PRN (07:00)
[2021-05-15] MEDS ORDERED: HEPARIN SODIUM,PORCINE 10,000 UNIT in SODIUM CHLORIDE 0.9% 1,000 ML IRRIGATION PRN (07:00)
[2021-05-15] MEDS ORDERED: HEPARIN SODIUM 1,000 UN/ML (10ML VL) ONE (07:15)
[2021-05-15] MEDS ORDERED: fentaNYL (PF) 50 MCG/ML 2 ML AMP ONE (07:15)
[2021-05-15] MEDS ORDERED: VERAPAMIL 2.5 MG/ML 2 ML AMP ONE (07:15)
[2021-05-15] MEDS ORDERED: LIDOCAINE 1% INJ 10MG/ML (20 ML MDV) ONE (07:15)
[2021-05-15 09:35] LABS: Basophils % (A) 1 %; Eosinophils # (A) 0.1 k/uL (0-0.7); Eosinophils % (A) 3 %; HCT 39.2 % (34.0-46.0); HGB 12.5 gm/dL (11.4-16.0); Lymphocytes # (A) 1.5 k/uL (1.0-4.8); Lymphocytes % (A) 37 %; MCH 31.3 pg (25.0-35.0); MCV 97.9 fL (80.0-100.0); Mean Platelet Volume 9.5; Monocytes # (A) 0.3 k/uL (0-1.0); Monocytes % (A) 8 %; Neutrophils # (A) 2.1 k/uL (1.3-7.7); Neutrophils % (A) 49 %; Platelet Count 152 k/uL (150-450); WBC 4.2 k/uL (3.8-10.6)
[2021-05-15 09:44] LABS: INR 1.1 (<1.2); Prothrombin Time 11.7 sec (9.0-12.0)
[2021-05-15] MEDS ORDERED: fentaNYL (PF) 50 MCG/ML 2 ML AMP IV ONE (12:51)
[2021-05-15] MEDS ORDERED: MIDAZOLAM 2 MG/2 ML VIAL IV ONE (12:51)
[2021-05-15] MEDS ORDERED: LIDOCAINE 1% INJ 10MG/ML (20 ML MDV) SQ ONE (12:52)
[2021-05-15] MEDS ORDERED: VERAPAMIL SYRINGE (5 MG/10 ML) INTRAARTER ONE (12:53)
[2021-05-15] MEDS ORDERED: HEPARIN SODIUM 1,000 UN/ML (10ML VL) IV ONE (13:00)
[2021-05-15] MEDS ORDERED: IV FLUID CONTINUATION 900 ML IV ONE (13:02)
[2021-05-15] MEDS ORDERED: IOPAMIDOL-370 125ML BTL INJ ONE (13:08)
[2021-05-15] MEDS: PANTOPRAZOLE 40 MG TABLET PO SCH (13:31)
--- NOTE | 2021-05-15 15:57 | P.PN ---
Subjective This is a pleasant 75 his old female with past medical history off Atrial Flutte XARELTO AND PROPAFENONE status post cardiac ablation procedure, GERD/Reflux, Hyperlipidemia, Hypertension,fx rt shoulder 10/02/19 wears sling She presents because she did not feel right, she was dizzy lightheaded with only minimal and mild chest discomfort which is resolved now, currently she is complaining only for mild headache. Patient checked her pulse at home at noticed to be passed so she decided to come to emergency room She denies dyspnea or coughing, no GI or urinary symptoms, no weakness or numbness She denies smoking, alcohol or illicit drugs She was compliant with her medication Her trimming press operator is Dr. Leal On the presentation she was tachycardic 190, heart rate currently improved down to 82, rest of vitals are stable and patient is afebrile. Labs including CBC, INR, BMP and liver enzymes are unremarkable. Troponin elevated 0.04 and 0.2. TSH normal 1.8. EKG showing supraventricular tachycardia with a rate of 192. Chest x-ray: Showed possible minimal heart failure with increased bilateral interstitial densities Patient was started on Cardizem drip 05/15/2021 Patient is asymptomatic today with no chest pain dyspnea palpitation. No dizziness lightheadedness or headache. No other symptoms. She is hemodynamically stable. Ejection fraction is 50-55% Patient undergoing cardiac cath today per trimming press operator and result is pending Resume Xarelto after cardiac cath per trimming press operator team Objective - Vital Signs Vital signs: Vital Signs Temp 97.8 F 05/15/21 14:42 Pulse 110 H 05/15/21 14:42 Resp 18 05/15/21 14:42 BP 123/82 05/15/21 14:42 Pulse Ox 96 05/15/21 14:42 Intake & Output 05/14/21 05/15/21 05/15/21 18:59 06:59 18:59 Intake Total 540 100 Balance 540 100 Weight 95.5 kg Intake: IV 100 Oral 540 Other: # Voids 1 - Exam GENERAL: The patient is alert and oriented x3, not in any acute distress. Well developed, well nourished. HEENT: Pupils are round and equally reacting to light. EOMI. No scleral icterus. No conjunctival pallor. Normocephalic, atraumatic. No pharyngeal erythema. No thyromegaly. CARDIOVASCULAR: S1 and S2 present. No murmurs, rubs, or gallops. PULMONARY: Chest is clear to auscultation, no wheezing or crackles. ABDOMEN: Soft, nontender, nondistended, normoactive bowel sounds. No palpable organomegaly. MUSCULOSKELETAL: No joint swelling or deformity. EXTREMITIES: No cyanosis, clubbing, or pedal edema. NEUROLOGICAL: Gross neurological examination did not reveal any focal deficits. SKIN: No rashes. no petechiae. - Labs CBC & Chem 7: 05/15/21 08:19 05/13/21 23:38 Assessment and Plan Assessment: A. fib with RVR on Xarelto and propafenone at home status post cardiac ablation Hypertension Hyperlipidemia History of GERD Plan: This is a pleasant 75 his old female who presents with A. fib and RVR Cardiology consult patient is going for cardiac cath today Continue with Xarelto , on hold. Her trimming press operator Continue with Cardizem drip. Continue with propafenone, which is home medication. Continue with metoprolol added by trimming press operator team. Labs and medication were reviewed.. Continue same treatment. Continue with symptomatic treatment. Resume home medication. Monitor lytes and vitals. DVT and GI prophylaxis. Further recommendations depends on the clinical course of the patient DVT prophylaxis:Xarelto GI Prophylaxis: Pepcid
[2021-05-15] MEDS: SODIUM CHLORIDE 0.9% 1,000 ML in EMPTY BAG 1 BAG IV SCH ×2 (16:21→22:26)
[2021-05-15] MEDS: ATORVASTATIN 40 MG TAB PO SCH (20:17)
[2021-05-15] MEDS: CITALOPRAM HYDROBROMIDE 20 MG TAB PO SCH (20:17)
[2021-05-15] MEDS: lisinopriL 5 MG TAB PO SCH (20:17)
[2021-05-15] MEDS ORDERED: RIVAROXABAN 20 MG TAB PO SCH (21:00)
--- NOTE | 2021-05-15 22:58 | P.CARDCATH ---
Description of Procedure: PROCEDURES PERFORMED: Left heart catheterization, bilateral coronary angiography INDICATION: NSTEMI CONSENT:I have discussed the risks, benefits and alternative therapies for the above-mentioned procedure and for both sedation/analgesia as well as necessary blood product administration, if indicated, as they pertain to this patient. The patient has indicated understanding and acceptance of the risks and procedures discussed. PROCEDURE: After the risks, benefits and alternatives of the above mentioned procedure explained in detail with the patient, informed consent was obtained. Patient was taken to the catheterization lab and prepped and draped in usual fashion. 1% lidocaine was used to anesthetize the right radial artery. A 6- Gabonese sheath was placed in the right radial artery using modified Seldinger technique. Left coronary angiography was performed with a 6-Gabonese JL 3.5 catheter and right coronary angiography was performed with a 5-Gabonese JR5 catheter in various views. A 5-Gabonese FR5 catheter was inserted into the left ventricle and pressure measurements were obtained. The right radial sheath was removed and a TR band was placed with hemostasis achieved. The patient tolerated the procedure well. Patient was transported back to the post catheterization holding area in stable condition. Conscious Sedation: Patient was monitored under the direct supervision of vision of myself for conscious sedation using Versed and fentanyl for a total duration of 19 minutes HEMODYNAMICS: Ao: 132/76 LV: 133/2, LVEDP 10mmHg SELECTIVE CORONARY ARTERIOGRAPHY: LEFT MAIN: The left main is a large caliber vessel which bifurcates into the LAD and circumflex. There is no significant stenosis. LEFT ANTERIOR DESCENDING CORONARY ARTERY: LAD is a large caliber vessel which wraps around to the apex. There are mild luminal irregularities. LEFT CIRCUMFLEX CORONARY ARTERY: Left circumflex is a moderate caliber vessel without significant stenosis. RIGHT CORONARY ARTERY: The right coronary artery is a large caliber vessel which gives off a PDA and PLV branch and is the dominant vessel. There are mild luminal irregularities up to 10-20% stenosis. FINAL IMPRESSION: 1. Minimal luminal irregularities and otherwise normal coronary arteries as described above. 2. Normal left sided filling pressures PLAN: 1. Aggressive risk factor modification per most recent ACC/AHA guidelines. 2. Follow-up in the office in 1-2 weeks.
[2021-05-16 00:08] VITALS: RESP 16
[2021-05-16] MEDS: SODIUM CHLORIDE 0.9% 1,000 ML in EMPTY BAG 1 BAG IV SCH (05:12)
[2021-05-16] MEDS: PANTOPRAZOLE 40 MG TABLET PO SCH (06:16)
[2021-05-16] MEDS: PROPAFENONE 150 MG TAB PO SCH (08:53)
[2021-05-16] MEDS: METOPROLOL TARTRATE 25 MG TAB PO SCH (08:53)
[2021-05-16 11:44] VITALS: TEMP 96.9
[2021-05-16 11:45] VITALS: BP 111/76; PULSE 110
--- NOTE | 2021-05-16 13:35 | P.PN ---
Subjective Progress Note Date: 05/16/21 HISTORY OF PRESENT ILLNESS: This is a 75-year-old female with a past medical history significant for hypertension, hyperlipidemia, syncope, and paroxysmal atrial fibrillation/typical atrial flutter with previous ablation. Patient follows in the office with Dr. Chamorro. We have been asked to see the patient in consultation for aflutter. Patient examined at the bedside. Patient states over the past 2-3 days she has not been feeling well overall. She reports having some dizziness as well. She states yesterday she began having palpitations so she presented to the emergency room. She denied having any chest pain or pressure. She denied any shortness of breath. The patient was found to be in a flutter with RVR. Patient was started on IV Cardizem and IV heparin. This mor haley telemetry reveals atrial flutter with controlled ventricular rate in the 70s. * EKG reveals atrial flutter versus * Chest xray increased interstitial density compared to exam. This could be some minimal heart failure. * Laboratory data: WBC 6.3. Hemoglobin 13.0. Platelet count 183. Sodium 136. Potassium 3.5. BUN 16. Creatinine 0.77. Magnesium 1.9. Troponin 0.047. 0.236. TSH 1.820. * Current home cardiac medications include Rythmol 150 mg twice a day, Lipitor 40 mg at night, Xarelto 20 mg daily, metoprolol succinate 12.5 mg at night, lisinopril 10 mg at night * Most recent echocardiogram obtained at the office in July 2020 revealed ejection fraction 55%, mild MR, mild TR * Patient underwent Lexiscan stress test in July 2017 which was negative for ischemia * Cardiac catheterization history: 2006 revealing EF 60% with mild CAD. 05/16/2021 Patient examined this morning at the bedside. Patient is status post cardiac catheterization revealing minimal luminal irregularities and otherwise normal coronary arteries. Normal left sided filling pressures. Patient denies chest pain or pressure. She denies shortness of breath. Vital signs are stable. Patient Xarelto has been resumed. PHYSICAL EXAM: VITAL SIGNS: Reviewed. GENERAL: Well-developed in no acute distress. HEENT: Head is normocephalic. Pupils are equal, round. Sclerae anicteric. Mucous membranes of the mouth are moist. Neck supple. No JVD or thyromegaly LUNGS: Respirations even and unlabored. Lungs essentially clear to auscultation bilaterally. HEART: Irregular rate and rhythm. S1 and S2 heard. ABDOMEN: Soft. Nondistended. Nontender. EXTREMITIES: Normal range of motion. No clubbing or cyanosis. Peripheral pulses intact. No lower extremity edema NEUROLOGIC: Awake and alert. Oriented x 3. ASSESSMENT: Palpitations Typical atrial flutter with RVR Abnormal troponins, suspect secondary to a flutter with RVR, status post cardiac catheterization revealing normal coronary arteries History of atrial fibrillation/typical atrial flutter History of A. fib ablation Hypertension Hyperlipidemia History of syncope PLAN: Continue current cardiac medications Patient is stable for discharge home today from a cardiac standpoint. She is to follow up on an outpatient basis. Nurse practitioner note has been reviewed by physician. Signing provider agrees with the documented findings, assessment, and plan of care. Objective - Vital Signs Vital signs: Vital Signs Temp 96.9 F L 05/16/21 08:45 Pulse 110 H 05/16/21 10:50 Resp 16 05/16/21 10:50 BP 111/76 05/16/21 10:50 Pulse Ox 97 05/16/21 10:50 Intake & Output 05/15/21 05/16/21 05/16/21 18:59 06:59 18:59 Intake Total 800 118 Balance 800 118 Intake: IV 100 Intake, IV Titration 400 Amount Sodium Chloride 0.9% 1, 400 000 ml In Empty Bag 1 bag @ 1 ML/KG/HR 106.1 mls/ hr IV .[id number] SHEELA Rx#: [id number] Oral 300 118 Other: # Voids 1 1 - Labs CBC & Chem 7: 05/15/21 08:19 05/13/21 23:38
--- NOTE | 2021-05-17 09:00 | P.DS ---
Providers Date of admission: 05/14/21 00:31 Attending physician: Jacquie Samuels Consults: 05/14/21 00:32 Consult Physician Urgent Consulting Provider: Delta Rivera Consult Reason/Comments: a flutter Do you want consulting provider notified?: Yes Primary care physician: Chasity Claros Hospital Course: Dx: A. fib with RVR on Xarelto and propafenone at home with h/o cardiac ablation Hypertension Hyperlipidemia History of GERD Hospital course This is a pleasant 75 his old female with past medical history off Atrial Flutte XARELTO AND PROPAFENONE status post cardiac ablation procedure, GERD/Reflux, H yperlipidemia, Hypertension,fx rt shoulder 10/02/19 wears sling Patient metoprolol was increased and lisinopril dose was lowered to 5 mg, her heart rate is controlled and she has Xarelto at home. She had negative cardiac cath in the hospital She is asymptomatic and wants to go home, no chest pain or dyspnea, no change in urine or bowel habits. No fever. Patient was cleared for discharge by neurology physician Problems and management plan were discussed with the patient and he verbalized understanding and acceptance Patient was found stable and can be discharged home however he needs follow-up as an outpatient. Patient was instructed to follow up with PCP within one week and patient agrees Patient was instructed to follow up with her neurology physician Dr. Leal in one week and she agrees Physical exam Gen: patient is a AAOx3, no distress CVS: S1-S2, RRR, no murmur Lungs: B/L CTA, no wheezing Abdomen: soft, no distention, no tenderness, positive bowel sounds Extremity: no leg edema or induration Time spent more than 35 minutes Patient Condition at Discharge: Serious Plan - Discharge Summary Discharge Rx Participant: No New Discharge Prescriptions: New Metoprolol Tartrate [Lopressor] 25 mg PO BID #60 tab lisinopriL [Zestril] 5 mg PO HS 30 Days #30 tab Continue Omeprazole [PriLOSEC] 20 mg PO BID Citalopram Hydrobromide [CeleXA] 20 mg PO HS Propafenone HCl [Rythmol] 150 mg PO BID Atorvastatin [Lipitor] 40 mg PO HS Rivaroxaban [Xarelto] 20 mg PO DAILY Discontinued Metoprolol Succinate [Toprol XL] 12.5 mg PO HS Salas/D3/Mag11/Zinc/Lead Manufacturing Engineering Tech/John/Bor [Caltrate 600+D Plus Tablet] 1 tab PO BID lisinopriL [Zestril] 10 mg PO HS Discharge Medication List Atorvastatin [Lipitor] 40 mg PO HS 10/07/14 [History] Citalopram Hydrobromide [CeleXA] 20 mg PO HS 10/07/14 [History] Omeprazole [PriLOSEC] 20 mg PO BID 10/07/14 [History] Propafenone HCl [Rythmol] 150 mg PO BID 10/07/14 [History] Rivaroxaban [Xarelto] 20 mg PO DAILY 05/14/21 [History] Metoprolol Tartrate [Lopressor] 25 mg PO BID #60 tab 05/16/21 [Rx] lisinopriL [Zestril] 5 mg PO HS 30 Days #30 tab 05/16/21 [Rx] Follow up Appointment(s)/Referral(s): John Chamorro MD [STAFF PHYSICIAN] - 1 Week (The office will call with appointment time and date. ) Chasity Claros MD [Primary Care Provider] - 05/20/21 11:00 am Patient Instructions/Handouts: A-fib (Atrial Fibrillation) (DC), After Radial Heart Catheterization (GEN) Activity/Diet/Wound Care/Special Instructions: heart healthy diet activity is restricted till you see your doctor Discharge Disposition: HOME SELF-CARE
== END 2021-05-16 12:37 | disposition home or self-care (01) | DRG 287 ==
LOC: EC 23:18 → 3SCARD 05-14 00:31
PROVIDERS: ADMIT Hospitalist; ATTEND Hospitalist
PROC: B2111ZZ Fluoroscopy of Multiple Coronary Arteries using Low Osmolar Contrast (ICD-10-PCS; 2021-05-15)
PROC: 4A023N7 Measurement of Cardiac Sampling and Pressure, Left Heart, Percutaneous Approach (ICD-10-PCS; principal; 2021-05-15 07:30)
DX: I48.0 Paroxysmal atrial fibrillation (principal); E78.5 Hyperlipidemia, unspecified; K21.9 Gastro-esophageal reflux disease without esophagitis; I10 Essential (primary) hypertension; I27.20 Pulmonary hypertension, unspecified; R79.89 Other specified abnormal findings of blood chemistry; R00.2 Palpitations; I08.1 Rheumatic disorders of both mitral and tricuspid valves; I47.1 Supraventricular tachycardia; I48.3 Typical atrial flutter; F32.A Depression, unspecified; Z79.01 Long term (current) use of anticoagulants; Z79.899 Other long term (current) drug therapy; Z82.49 Family history of ischemic heart disease and other diseases of the circulatory system; Z90.710 Acquired absence of both cervix and uterus; Z90.49 Acquired absence of other specified parts of digestive tract; Z86.79 Personal history of other diseases of the circulatory system; Z95.818 Presence of other cardiac implants and grafts
CPT/HCPCS: 36415; 71045; 80053; 83735; 84439; 84443; 84481; 84484; 85025; 85610; 85730; 93005; 93306; 93458; 96365; 96366; 96368; 99291

== ENCOUNTER 2021-05-16 18:45 | Inpatient (IN) | payer MEDICARE ==
[2021-05-16 18:57] LABS: Glucose,Whole Blood 173 mg/dL (75-99)
[2021-05-16] MEDS ORDERED: METOPROLOL TARTRATE 5 MG/5 ML VIAL IVP ONE (19:00)
[2021-05-16] MEDS ORDERED: ETOMIDATE 2 MG/ML 10 ML VIAL IVP STA (19:09)
[2021-05-16 19:32] LABS: Basophils # (A) 0.1 k/uL (0-0.2); Basophils % (A) 1 %; Eosinophils # (A) 0.3 k/uL (0-0.7); Eosinophils % (A) 3 %; HGB 12.9 gm/dL (11.4-16.0); Lymphocytes # (A) 2.9 k/uL (1.0-4.8); Lymphocytes % (A) 29 %; MCHC 33.2 g/dL (31.0-37.0); MCV 96.4 fL (80.0-100.0); Mean Platelet Volume 9.5; Monocytes # (A) 0.5 k/uL (0-1.0); Monocytes % (A) 5 %; Neutrophils # (A) 6.2 k/uL (1.3-7.7); Neutrophils % (A) 61 %; Platelet Count 208 k/uL (150-450); RBC 4.05 m/uL (3.80-5.40); WBC 10.1 k/uL (3.8-10.6)
[2021-05-16 19:50] LABS: Albumin 3.6 g/dL (3.5-5.0); Calcium 8.4 mg/dL (8.4-10.2); INR 1.1 (<1.2); Magnesium 1.7 mg/dL (1.6-2.3); Potassium 3.8 mmol/L (3.5-5.1); Prothrombin Time 11.7 sec (9.0-12.0); Total Bilirubin 0.6 mg/dL (0.2-1.3)
[2021-05-16] MEDS ORDERED: MAGNESIUM SULFATE-D5W PMX 1 GM in DEXTROSE/WATER 1 100ML.BAG IVPB ONE (20:20)
[2021-05-16] MEDS ORDERED: NALOXONE 0.4 MG/ML 1 ML VIAL IV PRN (20:21)
--- NOTE | 2021-05-16 20:21 | ED ---
Arrhythmia/Palpitations HPI - General Chief Complaint: Arrhythmia/Palpitations Stated Complaint: SVT Time Seen by Provider: 05/16/21 18:45 Source: EMS Mode of arrival: EMS Limitations: no limitations - History of Present Illness Initial Comments: 75-year-old female with past history of A. fib presents to the emergency department for elevated heart rate. She was just discharged from our facility today. She is admitted on the with Hussein. fib. She received a heart cath which demonstrated normal coronary arteries. She reports that they increased he r dose of Rythmol and Lopressor rate patient was discharged around noon. Reports that she took a shower around 3:00 and had sudden onset of racing heart. She admitted to nausea. Symptoms persisted for several hours before she called an ambulance. EKG was obtained which demonstrated a heart rate of 180. EMS attempted to give her 6 and 12 mg of adenosine without improvement in her heart rate. She denies chest pain. No missed doses of her medications. No other alleviating, precipitating or modifying factors - Related Data Home Medications Medication Instructions Recorded Confirmed Atorvastatin [Lipitor] 40 mg PO HS 10/07/14 05/16/21 Citalopram Hydrobromide [CeleXA] 20 mg PO HS 10/07/14 05/16/21 Omeprazole [PriLOSEC] 20 mg PO BID 10/07/14 05/16/21 Rivaroxaban [Xarelto] 20 mg PO DAILY 05/14/21 05/16/21 Previous Rx's Medication Instructions Recorded Metoprolol Tartrate [Lopressor] 25 mg PO BID #60 tab 05/16/21 Amiodarone [Cordarone] 400 mg PO BID 30 Days #60 tab 05/18/21 Allergies Allergy/AdvReac Type Severity Reaction Status Date / Time No Known Allergies Allergy Verified 05/16/21 19:38 Review of Systems ROS Statement: Those systems with pertinent positive or pertinent negative responses have been documented in the HPI. ROS Other: All systems not noted in ROS Statement are negative. Past Medical History Past Medical History: Atrial Flutter, GERD/Reflux, Hyperlipidemia, Hypertension Additional Past Medical History / Comment(s): SEE CLINICAL INFORMATICS PHYSICIAN H & P, FREQUENT DIARREHA, PT STATES NO RIGHT EAR, fx rt shoulder 10/02/19 wears sling History of Any Multi-Drug Resistant Organisms: None Reported Past Surgical History: Appendectomy, Cardiac Ablation, Cholecystectomy, Heart Ca theterization, Hysterectomy Additional Past Surgical History / Comment(s): LOOP RECORDER X2. Past Anesthesia/Blood Transfusion Reactions: No Reported Reaction, Motion Sickness Additional Past Anesthesia/Blood Transfusion Reaction / Comment(s): PTS SISTER HAD SEVERE SWELLING WITH A BLOOD TRANSFUSION. Past Psychological History: Depression Smoking Status: Never smoker Past Alcohol Use History: None Reported Past Drug Use History: None Reported - Past Family History Sister(s) Family Medical History: Cancer, Myocardial Infarction ([place]) Additional Family Medical History / Comment(s): BREAST CANCER WITH METS, ARRYTHMIA Brother(s) Additional Family Medical History / Comment(s): (3) BROTHERS- ARRYTHMIA General Exam General appearance: anxious, in distress Head exam: Present: atraumatic, normocephalic, normal inspection Eye exam: Present: normal appearance, PERRL, EOMI. Absent: scleral icterus, conjunctival injection, periorbital swelling ENT exam: Present: normal exam, mucous membranes moist Neck exam: Present: normal inspection. Absent: tenderness, meningismus, l ymphadenopathy Respiratory exam: Present: normal lung sounds bilaterally. Absent: respiratory distress, wheezes, rales, rhonchi, stridor Cardiovascular Exam: Present: tachycardia, irregular rhythm, normal heart sounds. Absent: systolic murmur, diastolic murmur, rubs, gallop, clicks GI/Abdominal exam: Present: soft, normal bowel sounds. Absent: distended, tenderness, guarding, rebound, rigid Extremities exam: Present: normal inspection, full ROM, normal capillary refill. Absent: tenderness, pedal edema, joint swelling, calf tenderness Back exam: Present: normal inspection Neurological exam: Present: altered, CN II-XII intact Psychiatric exam: Present: anxious Skin exam: Present: warm, intact, diaphoretic, pallor. Absent: rash Course Vital Signs 05/16/21 05/16/21 05/16/21 18:46 18:51 19:02 Temperature Pulse Rate 189 H 189 H 178 H Pulse Rate [ Right Sitting Pulse Oximetery ] Respiratory 20 Rate Blood Pressure 147/133 68/52 59/32 O2 Sat by Pulse 97 Oximetry 05/16/21 05/16/21 05/16/21 19:06 19:25 20:00 Temperature Pulse Rate 73 77 80 Pulse Rate [ Right Sitting Pulse Oximetery ] Respiratory 14 18 Rate Blood Pressure 113/71 122/77 120/71 O2 Sat by Pulse 99 98 Oximetry 05/16/21 05/16/21 05/17/21 21:15 23:00 02:00 Temperature Pulse Rate 81 76 Pulse Rate [ 61 Right Sitting Pulse Oximetery ] Respiratory 14 16 Rate Blood Pressure 120/66 122/79 O2 Sat by Pulse 93 L Oximetry 05/17/21 05/17/21 05/17/21 02:47 06:00 09:54 Temperature 98.7 F Pulse Rate 74 64 65 Pulse Rate [ Right Sitting Pulse Oximetery ] Respiratory 16 16 16 Rate Blood Pressure 131/77 117/64 132/70 O2 Sat by Pulse 98 95 95 Oximetry 05/17/21 05/17/21 05/17/21 13:22 15:20 16:33 Temperature 97.9 F 98.2 F Pulse Rate 65 69 Pulse Rate [ Right Sitting Pulse Oximetery ] Respiratory 18 18 Rate Blood Pressure 123/82 121/67 O2 Sat by Pulse 95 96 Oximetry EKG Findings - EKG Comments: EKG Findings:: EKG at 1840 demonstrates a superventricular tachycardia with rate 180. QRS 86. QTC of 320. ST depression 1, 2, aVL as well as V4 through V6. Some ST elevation in aVR. Repeat EKG after cardioversion at 1904 demonstrates a sinus rhythm with a rate of 80. VT interval 172. QRS 89. QTC of 407. ST depression and elevation has resolved Procedures - Procedural Sedation Procedural Sedation Start Time: 19:02 Procedural Sedation Stop Time: 19:35 Indications: other (cardioversion) ASA Class: II Mallampati Airway Score: 2 Preparation: telemetry monitor applied, pulse oximeter, supplemental O2 applied, IV secured IV Etomidate Dose (mgs): 8 Patient Tolerated Procedure: well Additional Comments: no consent - patient altered mental status and required emergent cardioversion Medical Decision Making - Medical Decision Making Upon arrival patient is placed into trauma 1. She is hooked to continuous pulse ox and cardiac monitoring. Patient found to be hypotensive with a blood pressure of 68/52. Heart rate of 189. Patient is confused and has difficulty answering questions. Repetitively mentions that she feels as if she is going to pass out or have a bowel movement. Several blood pressures are obtained which continued to demonstrate hypotension. Respiratory is called at bedside, patient placed on supplemental nasal cannula oxygen and administered 8 mg of etomidate. Patient is cardioverted with 100 J and does enter a normal sinus rhythm. Patient is awake and after sedation and states she feels markedly improved. Due to her unstable A. fib I did recommend admission for repeat cardiac evaluation which the patient agreed to. She is admitted to Dr. Samuels and is awaiting a bed in stable condition. Spoke with jasson who agreed to admit the patient - Lab Data Result diagrams: 05/17/21 12:30 05/17/21 12:30 Lab Results 05/16/21 05/16/21 05/16/21 Range/Units 18:55 19:14 19:14 WBC 10.1 (3.8-10.6) k/uL RBC 4.05 (3.80-5.40) m/uL Hgb 12.9 (11.4-16.0) gm/dL Hct 39.0 (34.0-46.0) % MCV 96.4 (80.0-100.0) fL MCH 32.0 (25.0-35.0) pg MCHC 33.2 (31.0-37.0) g/dL RDW 14.0 (11.5-15.5) % Plt Count 208 (150-450) k/uL MPV 9.5 Neutrophils % 61 % Lymphocytes % 29 % Monocytes % 5 % Eosinophils % 3 % Basophils % 1 % Neutrophils # 6.2 (1.3-7.7) k/uL Lymphocytes # 2.9 (1.0-4.8) k/uL Monocytes # 0.5 (0-1.0) k/uL Eosinophils # 0.3 (0-0.7) k/uL Basophils # 0.1 (0-0.2) k/uL PT 11.7 (9.0-12.0) sec INR 1.1 (<1.2) APTT 28.0 (22.0-30.0) sec Sodium (137-145) mmol/L Potassium (3.5-5.1) mmol/L Chloride (98-107) mmol/L Carbon Dioxide (22-30) mmol/L Anion Gap mmol/L BUN (7-17) mg/dL Creatinine (0.52-1.04) mg/dL Est GFR (CKD-EPI)AfAm (>60 ml/min/1.73 sqM) Est GFR (CKD-EPI)NonAf (>60 ml/min/1.73 sqM) Glucose (74-99) mg/dL POC Glucose (mg/dL) 173 H (75-99) mg/dL POC Glu Product Development Specialist [facility] Calcium (8.4-10.2) mg/dL Magnesium (1.6-2.3) mg/dL Total Bilirubin (0.2-1.3) mg/dL AST (14-36) U/L ALT (4-34) U/L Alkaline Phosphatase (38-126) U/L Troponin I (0.000-0.034) ng/mL Total Protein (6.3-8.2) g/dL Albumin (3.5-5.0) g/dL 05/16/21 05/16/21 Range/Units 19:14 19:14 WBC (3.8-10.6) k/uL RBC (3.80-5.40) m/uL Hgb (11.4-16.0) gm/dL Hct (34.0-46.0) % MCV (80.0-100.0) fL MCH (25.0-35.0) pg MCHC (31.0-37.0) g/dL RDW (11.5-15.5) % Plt Count (150-450) k/uL MPV Neutrophils % % Lymphocytes % % Monocytes % % Eosinophils % % Basophils % % Neutrophils # (1.3-7.7) k/uL Lymphocytes # (1.0-4.8) k/uL Monocytes # (0-1.0) k/uL Eosinophils # (0-0.7) k/uL Basophils # (0-0.2) k/uL PT (9.0-12.0) sec INR (<1.2) APTT (22.0-30.0) sec Sodium 131 L (137-145) mmol/L Potassium 3.8 (3.5-5.1) mmol/L Chloride 102 (98-107) mmol/L Carbon Dioxide 21 L (22-30) mmol/L Anion Gap 8 mmol/L BUN 17 (7-17) mg/dL Creatinine 1.10 H (0.52-1.04) mg/dL Est GFR (CKD-EPI)AfAm 57 (>60 ml/min/1.73 sqM) Est GFR (CKD-EPI)NonAf 50 (>60 ml/min/1.73 sqM) Glucose 158 H (74-99) mg/dL POC Glucose (mg/dL) (75-99) mg/dL POC Glu Product Development Specialist ID Calcium 8.4 (8.4-10.2) mg/dL Magnesium 1.7 (1.6-2.3) mg/dL Total Bilirubin 0.6 (0.2-1.3) mg/dL AST 34 (14-36) U/L ALT 23 (4-34) U/L Alkaline Phosphatase 71 (38-126) U/L Troponin I 0.040 H* (0.000-0.034) ng/mL Total Protein 6.0 L (6.3-8.2) g/dL Albumin 3.6 (3.5-5.0) g/dL Critical Care Time Critical Care Time: Yes Critical Care Time: 32 minutes Disposition Clinical Impression: Atrial fibrillation with rapid ventricular response, Acute encephalopathy, Atrial fibrillation status post cardioversion Disposition: ADMITTED IP TO THIS [facility] Condition: Stable Is patient prescribed a controlled substance at d/c from ED?: No Decision to Admit Reason: Admit from EC Decision Date: 05/16/21 Decision Time: 20:21
--- NOTE | 2021-05-16 20:22 | XR ---
EXAMINATION TYPE: XR chest 2V DATE OF EXAM: 05/16/2021 7:35 PM COMPARISON:Chest radiographs from 05/05/2021 TECHNIQUE: XR chest 2V Frontal and lateral views of the chest. CLINICAL INDICATION:Female, 75 years old with history of dysrhythmia; FINDINGS: Lungs/Pleura: There is no evidence of pleural effusion, focal consolidation, or pneumothorax. Pulmonary vascularity: Pulmonary vascular congestion not significantly changed from prior. Heart/mediastinum: Cardiomediastinal silhouette is enlarged and stable. Atherosclerotic calcificatio ns are seen in the aorta. A loop recorder projects over the left thorax over the heart. Musculoskeletal: No acute osseous pathology. IMPRESSION: Cardiomegaly and mild pulmonary vascular congestion. Correlate with BNP for congestive heart failure.
[2021-05-16] MEDS: lisinopriL 5 MG TAB PO SCH (21:23)
[2021-05-16] MEDS: PANTOPRAZOLE 40 MG TABLET PO SCH (21:23)
[2021-05-16] MEDS: ATORVASTATIN 20 MG TAB PO SCH (21:23)
[2021-05-16] MEDS: METOPROLOL TARTRATE 25 MG TAB PO SCH (21:24)
[2021-05-16] MEDS: CITALOPRAM HYDROBROMIDE 20 MG TAB PO SCH (21:24)
[2021-05-16] MEDS: PROPAFENONE 150 MG TAB PO SCH (21:44)
--- NOTE | 2021-05-17 09:07 | P.CRDCN ---
History of Present Illness History of present illness: HISTORY OF PRESENT ILLNESS: This is a 75-year-old female with a past medical history significant for hypertension, hyperlipidemia, syncope, and paroxysmal atrial fibrillation/typical atrial flutter with previous ablation. Patient follows in the office with Dr. Chamorro. We have been asked to see the patient in consultation for aflutter. Patient had recent hospitalization 05/13/2021 where she was having frequent episodes of palpitations and feel lightheaded. She was seen to be in atrial flutter with RVR and continued on her home per path and on and Lopressor was increased. She had mildly elevated troponins and was complaining of some chest tightness with exertion and therefore heart catheterization was performed should not show any significant CAD. Echocardiogram was performed 05/14/2021 which showed EF 50-55% with moderately dilated left atrium and mild mitral regurgitation. Patient appears stable on medications and therefore discharged home. Unfortunately she went home and only was there for 5-6 hours and then started noticing her heart racing again. She is feel lightheaded and somewhat more symptomatic than before and this persists and therefore presented to the ER and was found to have low blood pressure in the 60s over 40s and therefore cardioverted with initial EKG showing atrial flutter with a heart rate of approximately 180. She denies missing any doses. REVIEW OF SYSTEMS: At the time of my exam: CONSTITUTIONAL: Denies fever or chills. HEENT: Denies blurred vision, vision changes, or eye pain. Denies hemoptysis CARDIOVASCULAR: Denies chest pain. Denies orthopnea. Denies PND. Denies palpitations RESPIRATORY: Denies shortness of breath. GASTROINTESTINAL: Denies abdominal pain. Denies nausea or vomiting. HEMATOLOGIC: Denies bleeding disorders. GENITOURINARY: Denies any blood in urine. SKIN: Denies pruitis. Denies rash. PHYSICAL EXAM: VITAL SIGNS: Reviewed. GENERAL: Well-developed in no acute distress. HEENT: Head is normocephalic. Pupils are equal, round. Sclerae anicteric. Mucous membranes of the mouth are moist. Neck supple. No JVD or thyromegaly LUNGS: Respirations even and unlabored. Lungs essentially clear to auscultation bilaterally. HEART: Irregular rate and rhythm. S1 and S2 heard. ABDOMEN: Soft. Nondistended. Nontender. EXTREMITIES: Normal range of motion. No clubbing or cyanosis. Peripheral pulses intact. No lower extremity edema NEUROLOGIC: Awake and alert. Oriented x 3. ASSESSMENT: Typical atrial flutter with RVR, status post cardioversion 05/16 Non-STEMI type II mechanism related to atrial flutter History of atrial fibrillation/typical atrial flutter History of A. fib ablation Hypertension Hyperlipidemia History of syncope PLAN: Patient with recent hospitalization for similar episodes and workup including catheterization showed minimal luminal irregularities and echo with EF 50-55%. She was attempted on an increased rate control as well as her home per path known however failed therapy. We therefore will change per path known to amiodarone with eventual recommendations for likely ablation as an outpatient. If patient remains stable on amiodarone likely discharge home tomorrow. 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 Past Anesthesia/Blood Transfusion Reactions: No Reported Reaction, Motion Sickness Additional Past Anesthesia/Blood Transfusion Reaction / Comment(s): PTS SISTER HAD SEVERE SWELLING WITH A BLOOD TRANSFUSION. Past Psychological History: Depression Smoking Status: Never smoker Past Alcohol Use History: None Reported Past Drug Use History: None Reported - Past Family History Sister(s) Family Medical History: Cancer, Myocardial Infarction (CT) Additional Family Medical History / Comment(s): BREAST CANCER WITH METS, ARRYTHMIA Brother(s) Additional Family Medical History / Comment(s): (3) BROTHERS- ARRYTHMIA Medications and Allergies Home Medications Medication Instructions Recorded Confirmed Type Atorvastatin [Lipitor] 40 mg PO HS 10/07/14 05/16/21 History Citalopram Hydrobromide [CeleXA] 20 mg PO HS 10/07/14 05/16/21 History Omeprazole [PriLOSEC] 20 mg PO BID 10/07/14 05/16/21 History Propafenone HCl [Rythmol] 150 mg PO BID 10/07/14 05/16/21 History Rivaroxaban [Xarelto] 20 mg PO DAILY 05/14/21 05/16/21 History Metoprolol Tartrate [Lopressor] 25 mg PO BID #60 tab 05/16/21 05/16/21 Rx lisinopriL [Zestril] 5 mg PO HS 30 Days #30 tab 05/16/21 05/16/21 Rx Allergies Allergy/AdvReac Type Severity Reaction Status Date / Time No Known Allergies Allergy Verified 05/16/21 19:38 Physical Exam Vitals: Vital Signs Pulse Resp BP Pulse Ox 05/17/21 06:00 64 16 117/64 95 05/17/21 02:47 74 16 131/77 98 05/16/21 23:00 76 122/79 05/16/21 21:15 81 14 120/66 93 L 05/16/21 20:00 80 18 120/71 98 05/16/21 19:25 77 14 122/77 99 05/16/21 19:06 73 113/71 05/16/21 19:02 178 H 59/32 05/16/21 18:51 189 H 68/52 05/16/21 18:46 189 H 20 147/133 97 Intake and Output 05/16/21 05/17/21 05/17/21 22:59 06:59 14:59 Other: Weight 95.5 kg Results 05/16/21 19:14 05/16/21 19:14 Cardiac Enzymes 05/16/21 05/16/21 05/16/21 Range/Units 19:14 19:14 22:13 AST 34 (14-36) U/L Troponin I 0.040 H* 0.184 H* (0.000-0.034) ng/mL Coagulation 05/16/21 Range/Units 19:14 PT 11.7 (9.0-12.0) sec APTT 28.0 (22.0-30.0) sec CBC 05/16/21 Range/Units 19:14 WBC 10.1 (3.8-10.6) k/uL RBC 4.05 (3.80-5.40) m/uL Hgb 12.9 (11.4-16.0) gm/dL Hct 39.0 (34.0-46.0) % Plt Count 208 (150-450) k/uL Comprehensive Metabolic Panel 05/16/21 Range/Units 19:14 Sodium 131 L (137-145) mmol/L Potassium 3.8 (3.5-5.1) mmol/L Chloride 102 (98-107) mmol/L Carbon Dioxide 21 L (22-30) mmol/L BUN 17 (7-17) mg/dL Creatinine 1.10 H (0.52-1.04) mg/dL Glucose 158 H (74-99) mg/dL Calcium 8.4 (8.4-10.2) mg/dL AST 34 (14-36) U/L ALT 23 (4-34) U/L Alkaline Phosphatase 71 (38-126) U/L Total Protein 6.0 L (6.3-8.2) g/dL Albumin 3.6 (3.5-5.0) g/dL Current Medications Generic Name Dose Route Start Last Admin Trade Name Freq PRN Reason Stop Dose Admin Atorvastatin Calcium 40 mg 05/16/21 21:00 05/16/21 21:23 Atorvastatin 20 Mg Tab PO 40 mg HS SHEELA Administration Citalopram Hydrobromide 20 mg 05/16/21 21:00 05/16/21 21:24 Citalopram Hydrobromide 20 Mg Tab PO 20 mg HS SHEELA Administration Lisinopril 5 mg 05/16/21 21:00 05/16/21 21:23 Lisinopril 5 Mg Tab PO 5 mg HS SHEELA Administration Metoprolol Tartrate 25 mg 05/16/21 21:00 05/16/21 21:24 Metoprolol Tartrate 25 Mg Tab PO 25 mg BID SHEELA Administration Naloxone HCl 0.2 mg 05/16/21 20:21 Naloxone 0.4 Mg/Ml 1 Ml Vial IV Q2M PRN Opioid Reversal Pantoprazole Sodium 40 mg 05/16/21 21:00 05/16/21 21:23 Pantoprazole 40 Mg Tablet PO 40 mg BID SHEELA Administration Propafenone HCl 150 mg 05/16/21 21:00 05/16/21 21:44 Propafenone 150 Mg Tab PO 150 mg BID SHEELA Administration Rivaroxaban 20 mg 05/17/21 09:00 Rivaroxaban 20 Mg Tab PO DAILY [facility] Protocol Intake and Output 05/16/21 05/17/21 05/17/21 22:59 06:59 14:59 Other: Weight 95.5 kg 05/16/21 19:14 05/16/21 19:14
[2021-05-17] MEDS: PROPAFENONE 150 MG TAB PO SCH (10:29)
[2021-05-17] MEDS: RIVAROXABAN 20 MG TAB PO SCH (10:41)
[2021-05-17] MEDS: AMIODARONE 200 MG TAB PO SCH ×2 (10:41→21:44)
[2021-05-17] MEDS: METOPROLOL TARTRATE 25 MG TAB PO SCH ×2 (10:41→21:44)
[2021-05-17] MEDS: PANTOPRAZOLE 40 MG TABLET PO SCH ×2 (10:41→21:44)
[2021-05-17 13:02] LABS: Basophils % (A) 1 %; Eosinophils # (A) 0.1 k/uL (0-0.7); Eosinophils % (A) 3 %; HCT 36.9 % (34.0-46.0); Lymphocytes # (A) 1.7 k/uL (1.0-4.8); Lymphocytes % (A) 30 %; MCH 32.1 pg (25.0-35.0); MCHC 32.7 g/dL (31.0-37.0); MCV 98.2 fL (80.0-100.0); Mean Platelet Volume 9.2; Monocytes # (A) 0.3 k/uL (0-1.0); Monocytes % (A) 5 %; Neutrophils # (A) 3.4 k/uL (1.3-7.7); Neutrophils % (A) 59 %; Platelet Count 182 k/uL (150-450); RBC 3.75 m/uL (3.80-5.40); RDW 14.7 % (11.5-15.5); WBC 5.7 k/uL (3.8-10.6)
[2021-05-17 13:31] LABS: Calcium 8.5 mg/dL (8.4-10.2); Magnesium 1.9 mg/dL (1.6-2.3); Potassium 3.6 mmol/L (3.5-5.1)
[2021-05-17] MEDS: ATORVASTATIN 20 MG TAB PO SCH (21:43)
[2021-05-17] MEDS: CITALOPRAM HYDROBROMIDE 20 MG TAB PO SCH (21:44)
[2021-05-17] MEDS: lisinopriL 5 MG TAB PO SCH (21:44)
[2021-05-18 02:58] VITALS: RESP 16
[2021-05-18] MEDS: AMIODARONE 200 MG TAB PO SCH (08:29)
[2021-05-18] MEDS: RIVAROXABAN 20 MG TAB PO SCH (08:29)
[2021-05-18] MEDS: PANTOPRAZOLE 40 MG TABLET PO SCH (08:29)
[2021-05-18] MEDS: METOPROLOL TARTRATE 25 MG TAB PO SCH (08:29)
--- NOTE | 2021-05-18 12:55 | P.HPIM ---
History of Present Illness H&P Date: 05/17/21 Chief Complaint: Palpitations 75-year-old female with past history of Ladan chicas presents to the emergency department for elevated heart rate. She was just discharged from our facility today. She is admitted on the with Ladan chicas. She received a heart cath which demonstrated normal coronary arteries. She reports that they increased her dose of Rythmol and Lopressor rate patient was discharged around noon. Reports that she took a shower around 3:00 and had sudden onset of racing heart. She admitted to nausea. Symptoms persisted for several hours before she called an ambulance. EKG was obtained which demonstrated a heart rate of 180. EMS attempted to give her 6 and 12 mg of adenosine without improvement in her heart rate. She denies chest pain. No missed doses of her medications. No other alleviating, precipitating or modifying factors Review of Systems Constitutional: Denies chills, Denies fever Eyes: denies blurred vision, denies loss of vision Ears, nose, mouth and throat: Reports as per HPI Cardiovascular: Reports palpitations, Reports rapid heart beat, Denies chest pain Respiratory: Denies wheezing Gastrointestinal: Denies abdominal pain, Denies nausea Genitourinary: Denies dysuria, Denies hematuria Musculoskeletal: Reports as per HPI Neurological: Denies change in mentation, Denies change in speech, Denies memory loss Endocrine: Denies cold intolerance, Denies heat intolerance, Denies polyphagia Hematologic/Lymphatic: Denies lymphadenopathy Past Medical History Past Medical History: Atrial Fibrillation, Atrial Flutter, GERD/Reflux, Hyperlipidemia, Hypertension, Syncope Additional Past Medical History / Comment(s): Pt recently admitted to [facility] on 05/14/21 with Afib RVR. 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 History of Any Multi-Drug Resistant Organisms: None Reported Past Surgical History: Appendectomy, Cardiac Ablation, Cholecystectomy, Heart Catheterization, Hysterectomy Additional Past Surgical History / Comment(s): 05/15/21 cardiac cath, loop recorders x2/since removed, cardioversion05/16/21 at [facility] ER Past Anesthesia/Blood Transfusion Reactions: No Reported Reaction, Motion Sickness Additional Past Anesthesia/Blood Transfusion Reaction / Comment(s): PTS SISTER HAD SEVERE SWELLING WITH A BLOOD TRANSFUSION. Smoking Status: Never smoker - Past Family History Sister(s) Family Medical History: Cancer, Myocardial Infarction ([place]) Additional Family Medical History / Comment(s): BREAST CANCER WITH METS, ARRYTHMIA Brother(s) Additional Family Medical History / Comment(s): (3) BROTHERS- ARRYTHMIA Medications and Allergies Home Medications Medication Instructions Recorded Confirmed Type Atorvastatin [Lipitor] 40 mg PO HS 10/07/14 05/16/21 History Citalopram Hydrobromide [CeleXA] 20 mg PO HS 10/07/14 05/16/21 History Omeprazole [PriLOSEC] 20 mg PO BID 10/07/14 05/16/21 History Rivaroxaban [Xarelto] 20 mg PO DAILY 05/14/21 05/16/21 History Metoprolol Tartrate [Lopressor] 25 mg PO BID #60 tab 05/16/21 05/16/21 Rx lisinopriL [Zestril] 5 mg PO HS 30 Days #30 tab 05/16/21 05/16/21 Rx Amiodarone [Cordarone] 400 mg PO BID 30 Days #60 tab 05/18/21 Rx Allergies Allergy/AdvReac Type Severity Reaction Status Date / Time No Known Allergies Allergy Verified 05/16/21 19:38 Physical Exam Vitals: Vital Signs Temp Pulse Resp BP Pulse Ox 05/17/21 09:54 98.7 F 65 16 132/70 95 05/17/21 06:00 64 16 117/64 95 05/17/21 02:47 74 16 131/77 98 05/16/21 23:00 76 122/79 05/16/21 21:15 81 14 120/66 93 L 05/16/21 20:00 80 18 120/71 98 05/16/21 19:25 77 14 122/77 99 05/16/21 19:06 73 113/71 05/16/21 19:02 178 H 59/32 05/16/21 18:51 189 H 68/52 05/16/21 18:46 189 H 20 147/133 97 Intake and Output 05/16/21 05/17/21 05/17/21 22:59 06:59 14:59 Other: Weight 95.5 kg 95.5 kg GENERAL: Well-developed in no acute distress. HEENT: Head is normocephalic. Pupils are equal, round. Sclerae anicteric. Mucous membranes of the mouth are moist. Neck supple. No JVD or thyromegaly LUNGS: Respirations even and unlabored. Lungs essentially clear to auscultation bilaterally. HEART: Irregular rate and rhythm. S1 and S2 heard. ABDOMEN: Soft. Nondistended. Nontender. EXTREMITIES: Normal range of motion. No clubbing or cyanosis. Peripheral pulses intact. No lower extremity edema NEUROLOGIC: Awake and alert. Oriented x 3. Results CBC & Chem 7: 05/17/21 12:30 05/17/21 12:30 Labs: Abnormal Lab Results - Last 24 Hours (Table) 05/16/21 05/16/21 05/16/21 Range/Units 18:55 19:14 19:14 Sodium 131 L (137-145) mmol/L Carbon Dioxide 21 L (22-30) mmol/L Creatinine 1.10 H (0.52-1.04) mg/dL Glucose 158 H (74-99) mg/dL POC Glucose (mg/dL) 173 H (75-99) mg/dL Troponin I 0.040 H* (0.000-0.034) ng/mL Total Protein 6.0 L (6.3-8.2) g/dL 05/16/21 Range/Units 22:13 Sodium (137-145) mmol/L Carbon Dioxide (22-30) mmol/L Creatinine (0.52-1.04) mg/dL Glucose (74-99) mg/dL POC Glucose (mg/dL) (75-99) mg/dL Troponin I 0.184 H* (0.000-0.034) ng/mL Total Protein (6.3-8.2) g/dL Thrombosis Risk Factor Assmnt - Choose All That Apply Any of the Below Risk Factors Present?: Yes Each Factor Represents 1 point: Obesity (BMI >25) Other Risk Factors: Yes Each Risk Factor Represents 2 Points: Age 61-74 years Other congenital or acquired thrombophilia - If yes, enter type in comment: No Thrombosis Risk Factor Assessment Total Risk Factor Score: 3 Thrombosis Risk Factor Assessment Level: Moderate Risk Assessment and Plan Assessment: 1. Typical atrial flutter with RVR - status post cardioversion 05/16; recent hospitalization for similar episodes and workup including catheterization showed minimal luminal irregularities and echo with EF 50-55%. She was attempted on an increased rate control as well as her home per path known however failed therapy; continue amiodarone with eventual recommendations for likely ablation as an outpatient. 2. Non-STEMI type II mechanism related to atrial flutter; control HR; continue to monitor trop 3. History of atrial fibrillation/typical atrial flutter; patient is s/p failed CVN 4. Hypertension; stable on lisinopril and lopressor 5. Hyperlipidemia; continue current dose of lipitor 6. Depression; continue Celexa DVT Prophylaxis; Xarelto CODE STATUS; FULL CODE
[2021-05-18 16:00] VITALS: BP 147/82; PULSE 67; TEMP 97.3
--- NOTE | 2021-05-18 17:20 | P.PN ---
Subjective HISTORY OF PRESENT ILLNESS: This is a 75-year-old female with a past medical history significant for hypertension, hyperlipidemia, syncope, and paroxysmal atrial fibrillation/typical atrial flutter with previous ablation. Patient follows in the office with Dr. Chamorro. We have been asked to see the patient in consultation for yudith. Patient had recent hospitalization 05/13/2021 where she was having frequent episodes of palpitations and feel lightheaded. She was seen to be in atrial flutter with RVR and continued on her home per path and on and Lopressor was increased. She had mildly elevated troponins and was complaining of some chest tightness with exertion and therefore heart catheterization was performed should not show any significant CAD. Echocardiogram was performed 05/14/2021 which showed EF 50-55% with moderately dilated left atrium and mild mitral regurgitation. Patient appears stable on medications and therefore discharged home. Unfortunately she went home and only was there for 5-6 hours and then started noticing her heart racing again. She is feel lightheaded and somewhat more symptomatic than before and this persists and therefore presented to the ER and was found to have low blood pressure in the 60s over 40s and therefore cardioverted with initial EKG showing atrial flutter with a heart rate of approximately 180. She denies missing any doses. 05/18 Patient seen and examined. Patient remains in sinus rhythm without any significant arrhythmias or pauses. She admits she felt somewhat lightheaded a fter she took her amiodarone however has been up walking and no further issues. A be related to the metoprolol. We will stop her lisinopril given blood pressures have been borderline. PHYSICAL EXAM: VITAL SIGNS: Reviewed. GENERAL: Well-developed in no acute distress. HEENT: Head is normocephalic. Pupils are equal, round. Sclerae anicteric. Mucous membranes of the mouth are moist. Neck supple. No JVD or thyromegaly LUNGS: Respirations even and unlabored. Lungs essentially clear to auscultation bilaterally. HEART: Irregular rate and rhythm. S1 and S2 heard. ABDOMEN: Soft. Nondistended. Nontender. EXTREMITIES: Normal range of motion. No clubbing or cyanosis. Peripheral pulses intact. No lower extremity edema NEUROLOGIC: Awake and alert. Oriented x 3. ASSESSMENT: Typical atrial flutter with RVR, status post cardioversion 3/31 Non-STEMI type II mechanism related to atrial flutter History of atrial fibrillation/typical atrial flutter History of A. fib ablation Hypertension Hyperlipidemia History of syncope PLAN: Patient highly symptomatic from atrial flutter with RVR and is status post cardioversion. Continue with amiodarone for rhythm control. Continue with metoprolol and stop lisinopril. Follow-up in office in 1 week and patient would benefit from ablation. Objective - Vital Signs Vital signs: Vital Signs Temp 97.3 F L 05/18/21 12:00 Pulse 67 05/18/21 12:00 Resp 16 05/18/21 12:00 BP 147/82 05/18/21 12:00 Pulse Ox 98 05/18/21 12:00 Intake & Output 05/17/21 05/18/21 05/18/21 18:59 06:59 18:59 Intake Total 138 Balance 138 Weight 95.5 kg Intake: IV 20 Invasive Line 1 20 Oral 118 Other: # Voids 1 1 - Labs CBC & Chem 7: 05/17/21 12:30 05/17/21 12:30
--- NOTE | 2021-05-20 14:25 | P.DS ---
Providers Date of admission: 05/16/21 20:21 Expected date of discharge: 05/18/21 Attending physician: Jacquie Samuels Consults: 05/16/21 20:24 Consult Physician Urgent Consulting Provider: [facility] Consult Reason/Comments: afib with rvr, s/p cardioversion Do you want consulting provider notified?: Yes Primary care physician: Chasity Claros Hospital Course: Final diagnosis Typical atrial flutter with RVR status post cardioversion NSTEMI type II, related to atrial flutter History of atrial fibrillation, typical atrial flutter Hypertension Hyperlipidemia Depression DVT prophylaxis Full code Discharge disposition Patient is being discharged in a stable condition with guarded prognosis to home. Patient will follow-up with Dr. Claros in the outpatient setting upon discharge. Patient is to continue with current medications per cardiology and will follow-up with Dr. Chamorro. Total time taken is greater than 35 minutes. Hospital course This is a 75-year-old female who was recently admitted with elevated heart rate with history of A. fib found to be in atrial fibrillation with RVR. Patient was recently just admitted previously earlier in the day and was sent home. Patient has had recent changes in medications and started on Rythmol and Lopressor although was not working for the patient. Patient was resumed on amiodarone and will have close outpatient follow-up with cardiology and was recommended to discuss with Dr. Chamorro if requiring some form of ablation. Patient reports to feeling much better with daughter at the bedside and would like to go home today. Currently no reports of chest pain, shortness of breath, or palpitations. Patient is afebrile. No reports of nausea or vomiting and patient is tolerating diet. Patient will be discharged home today. Guarded prognosis. Physical exam: GENERAL: Well-developed in no acute distress. HEENT: Head is normocephalic. Pupils are equal, round. Sclerae anicteric. Mucous membranes of the mouth are moist. Neck supple. No JVD or thyromegaly LUNGS: Respirations even and unlabored. Lungs essentially clear to auscultation bilaterally. HEART: Irregular rate and rhythm. S1 and S2 heard. ABDOMEN: Soft. Nondistended. Nontender. EXTREMITIES: Normal range of motion. No clubbing or cyanosis. Peripheral pulses intact. No lower extremity edema NEUROLOGIC: Awake and alert. Oriented x 3. Please refer to medication reconciliation sheet for a list of medications. The impression and plan of care has been dictated by Coleen Morton, Nurse Practitioner as directed. Dr. Ashutosh MD I have performed a history and examination and MDM of this patient, discussed the same with the dictator, and agree with the dictator's assessment and plan as written ,documented as a scribe. Based on total visit time, I have performed more than 50% of the visit. Patient Condition at Discharge: Stable Plan - Discharge Summary Discharge Rx Participant: No New Discharge Prescriptions: New Amiodarone [Cordarone] 400 mg PO BID 30 Days #60 tab Continue Omeprazole [PriLOSEC] 20 mg PO BID Citalopram Hydrobromide [CeleXA] 20 mg PO HS Atorvastatin [Lipitor] 40 mg PO HS Rivaroxaban [Xarelto] 20 mg PO DAILY Metoprolol Tartrate [Lopressor] 25 mg PO BID #60 tab Discontinued Propafenone HCl [Rythmol] 150 mg PO BID lisinopriL [Zestril] 5 mg PO HS 30 Days #30 tab Discharge Medication List Atorvastatin [Lipitor] 40 mg PO HS 10/07/14 [History] Citalopram Hydrobromide [CeleXA] 20 mg PO HS 10/07/14 [History] Omeprazole [PriLOSEC] 20 mg PO BID 10/07/14 [History] Rivaroxaban [Xarelto] 20 mg PO DAILY 05/14/21 [History] Metoprolol Tartrate [Lopressor] 25 mg PO BID #60 tab 05/16/21 [Rx] Amiodarone [Cordarone] 400 mg PO BID 30 Days #60 tab 05/18/21 [Rx] Follow up Appointment(s)/Referral(s): John Chamorro MD [STAFF PHYSICIAN] - 1 Week Chasity Claros MD [Primary Care Provider] - 1-2 days Patient Instructions/Handouts: A-fib (Atrial Fibrillation) (ED) Activity/Diet/Wound Care/Special Instructions: Activity Limited until follow-up Follow-up with primary care provider on discharge Continue taking medications as prescribed Follow-up cardiology in one week Continue heart healthy diet Discharge Disposition: HOME SELF-CARE
== END 2021-05-18 18:04 | disposition home or self-care (01) | DRG 281 ==
LOC: EC 18:45 → 3SCARD 20:21
PROVIDERS: ADMIT Hospitalist; ATTEND Hospitalist
PROC: 5A2204Z Restoration of Cardiac Rhythm, Single (ICD-10-PCS; principal; 2021-05-16)
DX: I48.3 Typical atrial flutter (principal); I21.A1 Myocardial infarction type 2; G93.40 Encephalopathy, unspecified; I47.1 Supraventricular tachycardia; E78.5 Hyperlipidemia, unspecified; F32.A Depression, unspecified; I10 Essential (primary) hypertension; I25.2 Old myocardial infarction; I48.0 Paroxysmal atrial fibrillation; Z79.01 Long term (current) use of anticoagulants; Z79.899 Other long term (current) drug therapy; Z82.49 Family history of ischemic heart disease and other diseases of the circulatory system; Z90.710 Acquired absence of both cervix and uterus; Z98.890 Other specified postprocedural states; Z80.9 Family history of malignant neoplasm, unspecified
CPT/HCPCS: 36415; 71046; 80048; 80053; 83735; 84484; 85025; 85610; 85730; 92960; 93005; 96365; 96375; 99285

== ENCOUNTER → 2021-08-01 | Outpatient (CLI) | payer MEDICARE ==
[2021-08-01 14:56] LABS: African American GFR (CKD) 63.8 (60.0-200.0); Anion Gap 7.9 mmol/L (10.00-18.00); Carbon Dioxide 25.1 mmol/L (20.0-27.5); Non-African American GFR(CKD) 55.1 (60.0-200.0); Potassium 4.1 mmol/L (3.5-5.5)
[2021-08-01 15:00] LABS: HCT 41.2 % (37.2-46.3); HGB 13.3 g/dL (12.0-15.0); MCH 31.5 pg (27.0-32.0); MCHC 32.3 g/dL (32.0-37.0); MCV 97.6 fL (80.0-97.0); Mean Platelet Volume 12.2 fL (9.5-12.2); NRBC Per 100 WBC 0 /100 WBCS (0.0-0.0); Platelet Count 192 X 10*3/uL (140-440); RBC 4.22 X 10*6/uL (4.10-5.20); RDW 13.8 % (11.5-14.5)
== END | disposition home or self-care (01) ==
LOC: LABPAT 10:24
PROVIDERS: ATTEND Internal Medicine Clinical Cardiac Electrophysiology
DX: Z01.812 Encounter for preprocedural laboratory examination (principal); I48.0 Paroxysmal atrial fibrillation
CPT/HCPCS: 80051; 82565; 84520; 85027

== ENCOUNTER 2021-08-06 09:53 | Day surgery (SDC) | payer MEDICARE ==
[2021-08-05 09:16] VITALS: BMI 31.5
[~2021-08-06 09:53] MED LIST changes: +DEXAMETHASONE SOD PHOSPHATE 4 MG/ML 1 ML VIAL IV ONE; +LIDOCAINE 1% (10MG/ML) FOR IV START INTRADERMA PRN; -LIDOCAINE 1% INJ 10MG/ML (20 ML MDV) SQ ONE; +ONDANSETRON 4 MG/2 ML VIAL IVP ONE; +ONDANSETRON 4 MG/2 ML VIAL IVP PRN; +fentaNYL (PF) 50 MCG/ML 2 ML AMP IV PRN; -fentaNYL (PF) 50 MCG/ML 2 ML AMP IVP ONE; -fentaNYL (PF) 50 MCG/ML 2 ML AMP ONE
[2021-08-06] MEDS ORDERED: PROPOFOL 10 MG/ML 20 ML VIAL IV ONE (15:25)
[2021-08-06] MEDS ORDERED: MIDAZOLAM 2 MG/2 ML VIAL ONE (15:25)
[2021-08-06] MEDS ORDERED: ONDANSETRON 4 MG/2 ML VIAL ONE (15:25)
[2021-08-06] MEDS ORDERED: FUROSEMIDE 10 MG/ML 2 ML VIAL ONE (15:25)
[2021-08-06] MEDS ORDERED: NEOSTIGMINE 1 MG/ML 10 ML VIAL ONE (15:25)
[2021-08-06] MEDS ORDERED: SUCCINYLCHOLINE CHLORIDE 100 MG/5 ML SYR IV ONE (15:25)
[2021-08-06] MEDS ORDERED: LIDOCAINE 2% INJ 20 MG/ML (2 ML VIAL) ONE (15:25)
[2021-08-06] MEDS ORDERED: ROCURONIUM 10 MG/ML (5 ML VIAL) IV ONE (15:25)
[2021-08-06] MEDS ORDERED: fentaNYL (PF) 50 MCG/ML 2 ML AMP ONE (15:25)
[2021-08-06] MEDS ORDERED: GLYCOPYRROLATE 0.2 MG/ML 2 ML VIAL ONE (15:25)
[2021-08-06] MEDS ORDERED: HEPARIN SODIUM,PORCINE 10,000 UNIT/ML 1 ML VIAL ONE (15:25)
[2021-08-06] MEDS ORDERED: PHENYLEPHRINE-0.9% NACL SYG 1,000 MCG/10 ML SYRINGE ONE (15:25)
[2021-08-06] MEDS ORDERED: HEPARIN SOD,PORK IN 0.45% NACL 25,000 UNIT in 0.45% NACL 1 250ML.BAG IV ONE (15:50)
[2021-08-06] MEDS ORDERED: LIDOCAINE 1% INJ 10MG/ML (30 ML VIAL-PF) SQ ONE (16:18)
[2021-08-06] MEDS ORDERED: IOPAMIDOL-250 100ML BTL IV ONE (18:26)
[2021-08-06] MEDS ORDERED: HEPARIN SODIUM (1,000 UNIT/ML) 1,000 UNIT in SODIUM CHLORIDE 0.9% 1,000 ML IRRIGATION ONE (18:30)
[2021-08-06] MEDS ORDERED: ACETAMINOPHEN TAB 325 MG TAB PO PRN (20:02)
--- NOTE | 2021-08-06 20:28 | P.HPCAR ---
History of Present Illness This is Dr. Chamorro dictating an H/P on this patient The patient was interviewed and examined IMPRESSION / ASSESSMENT: Recurrent palpitations or lightheadedness Mild coronary artery disease Recurrent atrial tachycardia and atrial fibrillation Preserved LV systolic function PLAN: EP study in A. fib ablation and ablation of atrial tachycardia Maximizing antihypertensive therapy HPI Patient continues to complain of palpitations despite propafenone She has recurrent episodes of palpitations associated with chest and jaw disco mfort She has undergone coronary angiography in the month of April this year which showed very mild disease in the RCA only She also complains of increasing fatigue and shortness of breath ROS: No fever chills or rigors, no cough, phlegm or expectoration, no nausea, vomiting or diarrhea, no hematuria, dysuria, no musculoskeletal complaints, no strokes or seizures, no skin lesions. EXAMINATION: On admission artery disease 130 beats a minute, blood pressure 150 101 101 mmHg Heart sounds S1 and S2 are normal tachycardic Breath sounds are clear No JVD No lower extremity edema REVIEW OF LABS, ECG & MEDICAL DATA Coronary sinus negative Previously been creatinine was normal Physical Exam Vitals: Vital Signs Temp Pulse Resp BP BP Pulse Ox 08/06/21 10:04 98.3 F 130 H 16 152/101 146/102 97 Intake and Output 08/06/21 08/06/21 08/06/21 06:59 14:59 22:59 Intake Total 1294.4 Output Total 120 Balance 1174.4 Intake: IV 1294.4 Output: Urine 120 Other: Weight 98 kg Past Medical History Past Medical History: Atrial Flutter, GERD/Reflux, Hyperlipidemia, Hypertension Additional Past Medical History / Comment(s): See Dr Chamorro's H&P, FREQUENT diarrhea, PT STATES NO RIGHT EAR, fx rt shoulder 10/02/19, anemia, urinary leakage, History of Any Multi-Drug Resistant Organisms: None Reported Past Surgical History: Appendectomy, Cardiac Ablation, Cholecystectomy, Heart Catheterization, Hysterectomy Additional Past Surgical History / Comment(s): LOOP RECORDER X 2(batteries ) Past Anesthesia/Blood Transfusion Reactions: No Reported Reaction Additional Past Anesthesia/Blood Transfusion Reaction / Comment(s): PTS SISTER HAD SEVERE SWELLING WITH A BLOOD TRANSFUSION. Smoking Status: Former smoker - Past Family History Sister(s) Family Medical History: Cancer, Deep Vein Thrombosis (DVT), Myocardial Infarction ([place]), Pulmonary Embolus Additional Family Medical History / Comment(s): BREAST CANCER WITH METS, ARRYTHMIA Brother(s) Family Medical History: Cancer Additional Family Medical History / Comment(s): (3) BROTHERS- ARRYTHMIA Mother Family Medical History: Cancer Father Family Medical History: Cancer Physical Examination Vital Signs Temp Pulse Resp BP BP Pulse Ox 08/06/21 10:04 98.3 F 130 H 16 152/101 146/102 97 Intake and Output 08/06/21 08/06/21 08/06/21 06:59 14:59 22:59 Intake Total 1294.4 Output Total 120 Balance 1174.4 Intake: IV 1294.4 Output: Urine 120 Other: Weight 98 kg Results Current Medications Generic Name Dose Route Start Last Admin Trade Name Freq PRN Reason Stop Dose Admin Acetaminophen 650 mg 08/06/21 20:02 Acetaminophen Tab 325 Mg Tab PO 09/05/21 20:03 Q6HR PRN Mild Pain Atorvastatin Calcium 40 mg 08/07/21 20:00 Atorvastatin 40 Mg Tab PO 09/06/21 20:01 1999 [facility] Fentanyl Citrate 50 mcg 08/06/21 07:00 Fentanyl (Pf) 50 Mcg/Ml 2 Ml Amp IV 08/06/21 23:00 Q3M PRN Phase I - Pain Control Lactated Ringer's 1,000 mls @ 20 mls/hr 08/06/21 06:01 Lactated Ringers IV 09/05/21 06:02 .Q24H SHEELA Acetaminophen 1,000 mg/ IV 100 mls @ 400 mls/hr 08/06/21 20:02 Solution IVPB 08/06/21 20:16 ONCE ONE Lidocaine HCl 0.1 ml 08/06/21 06:01 Lidocaine 1% (10mg/Ml) For Iv Start INTRADERMA 09/05/21 06:02 PER PROTOCOL PRN IV Start Lisinopril 10 mg 08/07/21 20:00 Lisinopril 10 Mg Tab PO 09/06/21 20:01 1999 [facility] Metoprolol Succinate 25 mg 08/07/21 20:00 Metoprolol Succinate (Er) 25 Mg Tab.Er.24h PO 09/06/21 20:01 1999 [facility] Ondansetron HCl 4 mg 08/06/21 07:00 Ondansetron 4 Mg/2 Ml Vial IVP 08/06/21 23:00 ONCE PRN Phase 1 or 2 - Nausea/Vomiting Pantoprazole Sodium 40 mg 08/06/21 21:00 Pantoprazole 40 Mg Tablet PO 09/05/21 21:01 AC-BID SHEELA Rivaroxaban 20 mg 08/07/21 20:00 Rivaroxaban 20 Mg Tab PO 09/06/21 20:01 1999 [facility] Protocol Sodium Chloride 12 ml 08/06/21 20:02 Sodium Chloride 0.9% Flush 10 Ml Syringe IV 09/05/21 20:03 Q12HR PRN Line Flush Intake and Output 08/06/21 08/06/21 08/06/21 06:59 14:59 22:59 Intake Total 1294.4 Output Total 120 Balance 1174.4 Intake: IV 1294.4 Output: Urine 120 Other: Weight 98 kg Patient Weight 08/07/21 06:59 Weight 98 kg
--- NOTE | 2021-08-06 20:31 | P.PRLE ---
RE: Yoselin Vaz Dear Chasity Wyatt underwent an EP study and stepwise ablation for atrial fibrillation At the end of the procedure she had converted to sinus rhythm She will continue her anticoagulation We did find her blood pressure was quite elevated and therefore I will be increasing her dose of lisinopril I will stop propafenone now Thank you for entrusting me with the care of the patient Warm regards Sincerely John Chamorro
[2021-08-06] MEDS ORDERED: ACETAMINOPHEN IV (For NPO) 1,000 MG/100 ML VIAL IVPB ONE (20:40)
[2021-08-06] MEDS ORDERED: HYDROmorphone 0.5 MG/0.5 ML SYRINGE IVP ONE (20:45)
--- NOTE | 2021-08-06 20:45 | P.EPPROC ---
- EP Procedure Note Electrophysiology Procedure Note: Diagnosis Persistent atrial tachycardia and atrial fibrillation Symptomatic Procedures Patient was brought to the EP lab in a fasting state. Written informed consent was obtained prior to the procedure the regular groins prepped and draped as a protocol and 1% lidocaine was used for local anesthesia Diagnostic, mapping and ablation catheters were placed in the right left femoral veins General anesthesia is provided Diagnostic mapping and ablation catheters were placed At this time the study the patient was an atrial tachycardia concentric activation the coronary sinus RA pressure 14/9/11 LA pressure 18/8/13 Intracardiac echo catheter placed No right or left atrial thrombi noted Transseptal catheterization performed under intracardiac echo guidance No pericardial effusion before or after the procedure First pulmonary vein isolation was performed successfully Cryoablation was used During cannulation of the right inferior pulmonary vein, the concentric activation atrial tachycardia terminated Later during cannulation of the left superior pulmonary vein atrial fibrillation was reinduced The roof line was made and then completed with RF Septal ablation was performed in areas of complex fractionation and this resulted in organizational atrial fibrillation in 2 but appeared to be typical atrial flutter Left atrial and right atrial mapping was performed Entrainment mapping was performed in the cavo tricuspid isthmus Cavo tricuspid isthmus dependency proven RF ablation in the cavo tricuspid isthmus result in termination of atrial flutter to sinus rhythm Bidirectional block was proven AH interval 65 ms, HV interval 39 ms Sinus cycle length 1007 ms, TN interval 178 ms, QRS 87 ms, QT 480 ms This is a very very long procedure Transseptal catheterization was difficult on account of the stiffness of the fossa ovalis The sheath would not past the septum After great difficulty with slow rotation movements the sheath was placed into the left atrium The left atrium was very large The patient had very large pulmonary veins The left inferior pulmonary vein was particularly large The right-sided venous anatomy was very complex with an inferior, a large middle and a very large superiorly/vertically directed right superior pulmonary vein Patient or the procedure well without any acute complications Result Successful atrial fibrillation atrial tachycardia ablation Pulmonary vein isolation Atrial flutter ablation Left atrial Septal ablation Left atrial roof ablation
[2021-08-06] MEDS ORDERED: SODIUM CHLORIDE 0.9% 1,000 ML IV ONE (21:18)
[2021-08-06] MEDS ORDERED: ACETAMINOPHEN IV (For NPO) 1,000 MG in EMPTY BAG 1 BAG IVPB ONE (21:30)
[2021-08-06] MEDS ORDERED: RIVAROXABAN 20 MG TAB PO SCH (22:14)
[2021-08-06] MEDS: LACTATED RINGERS 1,000 ML IV SCH (22:15)
[2021-08-06] MEDS: PANTOPRAZOLE 40 MG TABLET PO SCH (22:33)
[2021-08-07] MEDS: LACTATED RINGERS 1,000 ML IV SCH (05:58)
[2021-08-07 07:15] VITALS: BP 109/63; PULSE 83; RESP 18; TEMP 98.4
[2021-08-07] MEDS: PANTOPRAZOLE 40 MG TABLET PO SCH (08:12)
--- NOTE | 2021-08-07 11:12 | P.DS ---
Providers Attending physician: John Chamorro Primary care physician: Chasity [facility] Course: Patient is doing well. No chest discomfort dizziness lightheadedness or palpitations She maintains sinus rhythm with PACs and twelve-lead EKG and on telemetry On examination blood pressure is 123/77 mmHg pulse rate in the 70s afebrile Normal heart sounds normal S1 normal S2 Breath sounds are clear no rhonchi no crackles Groins revealed well no hematoma minimal tenderness Impression Persistent A. fib Status post pulmonary vein isolation lesion and ablation in the left atrial roof Focal ablation in the septum of the left atrium Atrial flutter ablation With ablation the patient converted to sinus rhythm Plan Continue anticoagulation Continue current medications except propafenone Propafenone will be discontinued We will see her again in about a week or 2 Stable for discharge Plan - Discharge Summary Discharge Rx Participant: Yes New Discharge Prescriptions: Continue RX: Omeprazole [PriLOSEC] 20 mg PO BID RX: Citalopram Hydrobromide [CeleXA] 20 mg PO 1999 RX: Atorvastatin [Lipitor] 40 mg PO 1999 RX: Rivaroxaban [Xarelto] 20 mg PO 1999 Vitamin B 12 Injections 1 dose IJ Q60D RX: lisinopriL [Zestril] 10 mg PO 1999 90 Days #90 tab RX: Metoprolol Succinate (ER) [Toprol XL] 25 mg PO 1999 RX: Salas/D3/Mag11/Zinc/Apprentice/Lineman/John/Bor [Caltrate 600+D Plus Tablet] 1 each PO BID Discontinued RX: Propafenone HCl 150 mg PO BID Discharge Medication List RX: Atorvastatin [Lipitor] 40 mg PO 199910/07/14 [History] RX: Citalopram Hydrobromide [CeleXA] 20 mg PO 199910/07/14 [History] RX: Omeprazole [PriLOSEC] 20 mg PO BID 10/07/14 [History] RX: Rivaroxaban [Xarelto] 20 mg PO 199905/14/21 [History] RX: Salas/D3/Mag11/Zinc/Apprentice/Lineman/John/Bor [Caltrate 600+D Plus Tablet] 1 each PO BID 08/05/21 [History] RX: Metoprolol Succinate (ER) [Toprol XL] 25 mg PO 199908/05/21 [History] Vitamin B 12 Injections 1 dose IJ Q60D 08/05/21 [History] RX: lisinopriL [Zestril] 10 mg PO 1999 90 Days #90 tab 08/07/21 [Rx] Follow up Appointment(s)/Referral(s): John Chamorro MD [STAFF PHYSICIAN] - 08/14/21 9:45 am
[2021-08-07] MEDS ORDERED: METOPROLOL SUCCINATE (ER) 25 MG TAB.ER.24H PO SCH (20:00)
[2021-08-07] MEDS ORDERED: RIVAROXABAN 20 MG TAB PO SCH (20:00)
[2021-08-07] MEDS ORDERED: ATORVASTATIN 40 MG TAB PO SCH (20:00)
[2021-08-07] MEDS ORDERED: lisinopriL 10 MG TAB PO SCH (20:00)
== END 2021-08-07 13:24 | disposition home or self-care (01) ==
LOC: CATHEP 09:53 → 6NMEDSUR 20:00 → CATHEP 08-07 13:24
PROVIDERS: ATTEND Internal Medicine Clinical Cardiac Electrophysiology
DX: I48.0 Paroxysmal atrial fibrillation (principal); I48.92 Unspecified atrial flutter; I10 Essential (primary) hypertension; I25.10 Atherosclerotic heart disease of native coronary artery without angina pectoris; K21.9 Gastro-esophageal reflux disease without esophagitis; E78.5 Hyperlipidemia, unspecified; Z90.49 Acquired absence of other specified parts of digestive tract; Z87.891 Personal history of nicotine dependence; Z80.3 Family history of malignant neoplasm of breast; Z82.49 Family history of ischemic heart disease and other diseases of the circulatory system; Z79.899 Other long term (current) drug therapy; Z79.82 Long term (current) use of aspirin; Z79.01 Long term (current) use of anticoagulants; Z90.710 Acquired absence of both cervix and uterus; Z95.818 Presence of other cardiac implants and grafts
CPT/HCPCS: 93655; 93656; 93657; 87635; C1894 ×2; C1769 ×4; C1760; C1730 ×2; C1759; C1893; C1733; C1766; C1732; J2250; J1644 ×3; J1940; J2710; J2405; J2001 ×2; J3010; J0131; J2370; J0330; J2704; J1170; Q9966

== ENCOUNTER 2021-09-04 07:51 | Day surgery (SDC) | payer MEDICARE ==
[2021-09-02 15:15] VITALS: BMI 30.8
[~2021-09-04 07:51] MED LIST changes: -DEXAMETHASONE SOD PHOSPHATE 4 MG/ML 1 ML VIAL IV ONE; +LACTATED RINGERS 1,000 ML IV SCH; -LIDOCAINE 1% (10MG/ML) FOR IV START INTRADERMA PRN; -ONDANSETRON 4 MG/2 ML VIAL IVP ONE; -ONDANSETRON 4 MG/2 ML VIAL IVP PRN; -SODIUM CHLORIDE 0.9% 1,000 ML IV SCH; -fentaNYL (PF) 50 MCG/ML 2 ML AMP IV PRN
[2021-09-04 08:32] VITALS: TEMP 96.5
[2021-09-04] MEDS ORDERED: PROPOFOL 10 MG/ML 20 ML VIAL IV ONE (09:08)
[2021-09-04] MEDS ORDERED: LIDOCAINE 2% INJ 20 MG/ML (2 ML VIAL) ONE (09:08)
--- NOTE | 2021-09-04 10:17 | P.PCN ---
Date of Procedure: 09/04/21 Procedure(s) Performed: Brief history: Patient is a pleasant 76-year-old white female scheduled for an elective upper endoscopy as well as colonoscopy as a part of evaluation of I deficiency anemia. Procedure performed: Esophagogastroduodenoscopy with biopsy Colonoscopy with snare polypectomd tatoRepoing with ayanna ink Preoperative diagnosis: Iron deficiency anemia Anesthesia: MAC Procedure: After informed consent was obtained from the patient was brought into the endoscopy unit and IV sedation was administered by anesthesia under continuous monitoring. Initially upper endoscopy was done. The Olympus GF 160 video endoscope was inserted inserted into the mouth and esophagus intubated without any difficulty and was gradually advanced into the stomach and duodenum and carefully examined. The bulb and second part of the duodenum appeared normal. Biopsies were done from the duodenum to rule out celiac disease. The scope was then withdrawn into the stomach adequately insufflated with air and upon careful examination the antrum had scattered erosions and biopsies were done from this area. The body, cardia and fundus appeared normal. The scope was then withdrawn into the esophagus. The GE junction was located at 35 cm to the incisors. It appeared regular with no erythema erosions or ulcerations. Rest of the esophagus appeared normal. Patient tolerated the procedure well. At this time the patient continued to remain sedation. Initial digital rectal examination was normal. Olympus CF 160 video colonoscope was then inserted into the rectum and gradually advanced to the cecum with moderate to severe difficulty. Careful examination was performed as the scope was gradually being withdrawn. The prep was fair. In the base of the cecum there was a 5 mm polyp removed by snare polypectomy. In the ascending colon there was a 3 cm broad- based polyp that was removed in a piecemeal fashion and almost 90% the polyp was removed. Following this tattooing was performed with Ayanna ink. In the hepatic flexure there were 2 polyps measuring 1 cm in size removed by snare polypectomy. The, descending colon, sigmoid colon and rectum appeared normal. Scattered sigmoid diverticulosis seen. Retroflexion was performed in the rectum and no lesions were noted. Patient tolerated the procedure well. Impression: 1. Upper endoscopy revealed mild antral gastritis and moderate size hiatal hernia 2. Colonoscopy revealed: a. 5 limited cecal polyp status post polypectomy b) 3 cm broad-based ascending colon polyp that is post polypectomy in a piecemeal fashion followed by tattooing with Ayanna ink c) 1 centimeter 2 hepatic flexure polyp status post snare polypectomy d)scattered sigmoid diverticulosis Recommendations: Findings of this examination were discussed with the patient as well as her family. She was advised to follow with the biopsy results. she will be seen in office in 2 weeks. She will continue with iron supplements daily and followCBC periodically. If the biopsy reveals adenoma she can have a repeat colonoscopy in 3-6 months.
[2021-09-04 10:25] VITALS: RESP 18
[2021-09-04 11:02] VITALS: BP 128/66; PULSE 65
== END 2021-09-04 11:15 | disposition home or self-care (01) ==
LOC: ORWHC2ENDO 07:51
PROVIDERS: ATTEND Internal Medicine Gastroenterology
DX: D12.2 Benign neoplasm of ascending colon (principal); D12.3 Benign neoplasm of transverse colon; K57.30 Diverticulosis of large intestine without perforation or abscess without bleeding; K44.9 Diaphragmatic hernia without obstruction or gangrene; K29.70 Gastritis, unspecified, without bleeding; D50.9 Iron deficiency anemia, unspecified; K21.9 Gastro-esophageal reflux disease without esophagitis; I48.91 Unspecified atrial fibrillation; I10 Essential (primary) hypertension; E78.5 Hyperlipidemia, unspecified; Z87.891 Personal history of nicotine dependence; M19.90 Unspecified osteoarthritis, unspecified site; Z79.01 Long term (current) use of anticoagulants; Z79.899 Other long term (current) drug therapy; Z80.3 Family history of malignant neoplasm of breast; Z80.0 Family history of malignant neoplasm of digestive organs
CPT/HCPCS: 45381; 88305; 45385; 43239; J2704; J2001

== ENCOUNTER → 2022-01-03 | Outpatient (CLI) | payer MEDICARE ==
--- NOTE | 2022-01-06 07:48 | MM ---
Reason for Exam: Screening (asymptomatic). Last mammogram was performed 5 year(s) and 3 month(s) ago. Patient History: Menarche at age 17. First Full-Term at age 23. Left ovary removed at age 54. Right ovary removed at age 54. Hysterectomy at age 54. Postmenopausal. 10/02/2015, Benign Core Biopsy on the left side. 05/30/2010, Benign Core Biopsy on the left side. 12/24/2005, Benign Core Biopsy on the right side. Paternal aunt had breast cancer, age 50. Maternal aunt had breast cancer, age 50. Sister had breast cancer, age 44. Risk Values: Phoebe 5 year model risk: 4.6%. NCI Lifetime model risk: 9.7%. Prior Study Comparison: 09/13/2015 Bilateral Screening Mammogram, [facility]. 09/26/2015 Left Diagnostic Mammogram, [facility]. 09/22/2016 Bilateral Diagnostic Mammogram, [facility]. Tissue Density: There are scattered fibroglandular densities. Findings: Analyzed By CAD. There is no suspicious group of microcalcifications or new suspicious mass in either breast. Overall Assessment: Benign, BI-RAD 2 Management: Screening Mammogram of both breasts in 1 year. A clinical breast exam by your physician is recommended on an annual basis and results should be correlated with mammographic findings. Electronically signed and approved by: Leroy Sams M.D. Radiologis
== END | disposition home or self-care (01) ==
LOC: RADMAMWWP 12:38
PROVIDERS: ATTEND Family Medicine
DX: Z12.31 Encounter for screening mammogram for malignant neoplasm of breast (principal); Z78.0 Asymptomatic menopausal state; Z80.3 Family history of malignant neoplasm of breast; Z90.721 Acquired absence of ovaries, unilateral
CPT/HCPCS: 77063; 77067

== ENCOUNTER 2022-01-20 18:40 | Inpatient (IN) | payer MEDICARE ==
[2022-01-20] MEDS ORDERED: SODIUM CHLORIDE 0.9% 1,000 ML IV STA (18:41)
[2022-01-20] MEDS ORDERED: MORPHINE SULFATE 4 MG/ML SYRINGE IV STA ×2 (18:46→19:34)
--- NOTE | 2022-01-20 18:46 | ED ---
General Adult HPI - General Chief complaint: Trauma Stated complaint: fall from ladder, hip injury Time Seen by Provider: 01/20/22 18:41 Source: patient Mode of arrival: EMS - History of Present Illness Initial comments: Dictation was produced using [employer] dictation software. please excuse any grammatical, word or spelling errors. Chief Complaint: Patient is 76-year-old female who presents with right-sided hip pain after falling from a ladder History of Present Illness: Patient is 76-year-old female she has past medical history of atrial fibrillation 2 takes anticoagulation medications. She was climbing up a 6 foot ladder in her shed at home at around 1 PM when she lost her footing and fell landing on her right hip. Patient states she did not hit her head or lose consciousness. Patient states she was not able to stand up. She said on the ground was screaming for help. 5 hours later somebody heard her voice called EMS for her. Patient denies any numbness distally paresthesias to the right lower extremity. Denies any head pain or neck pain she'll complaining of right hip pain. The ROS documented in this emergency department record has been reviewed and confirmed by me. Those systems with pertinent positive or negative responses have been documented in the HPI. All other systems are other negative and/or noncontributory. PHYSICAL EXAM: General Impression: Alert and oriented x3, distress secondary to pain HEENT: Normocephalic atraumatic, extra-ocular movements intact, pupils equal and reactive to light bilaterally, mucous membranes moist. Cardiovascular: Heart regular rate and rhythm Chest: Able to complete full sentences, no retractions, no tachypnea Abdomen: abdomen soft, non-tender, non-distended, no organomegaly Musculoskeletal: Pulses present and equal in all extremities, no peripheral edema, shortened right lower extremity Motor: no focal deficits noted Neurological: CN II-XII grossly intact, no focal motor or sensory deficits noted Skin: Intact with no visualized rashes Psych: Normal affect and mood ED course: Male presents emergency department after fall from a ladder. She is in activated level II trauma given fall from above standing height and on anticoagulation medication she was received initially showed a #2. Level II trauma activation was paged. Patient was seen immediately. She does have p hysical exam findings to suggest right hip fracture. No other obvious traumatic abnormalities noted. Patient given IV analgesics by prehospital providers. Nursing notes and chart review was performed Abdomen evaluation obtained. CBC, coag panel, metabolic panel is unremarkable. Abdominal labs are negative. Urine drug screen is negative. Computed tomography scan of the brain and C-spine is unremarkable. Chest x-ray is not acute. Hip and pelvis x-ray shows some O acute impacted fracture of the right femur. She given IV analgesics. Patient be admitted to orthopedic surgery. Admitted to Dr. Hoyos. - Related Data Home Medications Medication Instructions Recorded Confirmed Atorvastatin [Lipitor] 40 mg PO HS@199910/07/14 09/09/21 Citalopram Hydrobromide [CeleXA] 20 mg PO HS@199910/07/14 09/09/21 Omeprazole [PriLOSEC] 20 mg PO BID 10/07/14 09/09/21 Salas/D3/Mag11/Zinc/Cloth Boil Off Machine Operator/John/Bor 1 tab PO BID 08/05/21 09/09/21 [Caltrate 600+D Plus Tablet] Metoprolol Succinate (ER) [Toprol 25 mg PO HS@199908/05/21 09/09/21 XL] lisinopriL [Prinivil] 20 mg PO DAILY 09/09/21 09/09/21 Previous Rx's Medication Instructions Recorded Rivaroxaban [Xarelto] 20 mg PO HS@1999 #0 09/12/21 Allergies Allergy/AdvReac Type Severity Reaction Status Date / Time No Known Allergies Allergy Verified 01/20/22 18:47 Review of Systems ROS Statement: Those systems with pertinent positive or pertinent negative responses have been documented in the HPI. ROS Other: All systems not noted in ROS Statement are negative. Past Medical History Past Medical History: Atrial Fibrillation, GERD/Reflux, Hyperlipidemia, Hypertension, Osteoarthritis (OA) Additional Past Medical History / Comment(s): , FREQUENT DIARREHA, PT STATES NO RIGHT EAR, fx rt shoulder 10/02/19 wears sling History of Any Multi-Drug Resistant Organisms: None Reported Past Surgical History: Appendectomy, Cardiac Ablation, Cholecystectomy, Heart Catheterization, Hysterectomy Additional Past Surgical History / Comment(s): LOOP RECORDER X2. Past Anesthesia/Blood Transfusion Reactions: No Reported Reaction Additional Past Anesthesia/Blood Transfusion Reaction / Comment(s): PTS SISTER HAD SEVERE SWELLING WITH A BLOOD TRANSFUSION. Past Psychological History: Depression Smoking Status: Former smoker Past Alcohol Use History: Rare Past Drug Use History: None Reported - Past Family History Sister(s) Family Medical History: Cancer, Myocardial Infarction ([place]) Additional Family Medical History / Comment(s): BREAST CANCER WITH METS, LIVER CANCER Brother(s) Family Medical History: Cancer Additional Family Medical History / Comment(s): (3) BROTHERS- ARRYTHMIA Mother Family Medical History: Cancer Father Family Medical History: Cancer Course Vital Signs 01/20/22 18:41 Temperature 97.7 F Pulse Rate 90 Respiratory 16 Rate Blood Pressure 169/107 O2 Sat by Pulse 91 L Oximetry Medical Decision Making - Lab Data Result diagrams: 01/20/22 18:50 01/20/22 18:50 Lab Results 01/20/22 01/20/22 01/20/22 Range/Units 18:47 18:50 18:50 WBC 13.4 H (3.8-10.6) k/uL RBC 4.05 (3.80-5.40) m/uL Hgb 13.2 (11.4-16.0) gm/dL Hct 38.2 (34.0-46.0) % MCV 94.2 (80.0-100.0) fL MCH 32.4 (25.0-35.0) pg MCHC 34.5 (31.0-37.0) g/dL RDW 13.2 (11.5-15.5) % Plt Count 186 (150-450) k/uL MPV 9.1 Neutrophils % 88 % Lymphocytes % 8 % Monocytes % 3 % Eosinophils % 0 % Basophils % 1 % Neutrophils # 11.8 H (1.3-7.7) k/uL Lymphocytes # 1.0 (1.0-4.8) k/uL Monocytes # 0.4 (0-1.0) k/uL Eosinophils # 0.1 (0-0.7) k/uL Basophils # 0.1 (0-0.2) k/uL PT 10.9 (9.0-12.0) sec INR 1.0 (<1.2) APTT 25.0 (22.0-30.0) sec Sodium (137-145) mmol/L Potassium (3.5-5.1) mmol/L Chloride (98-107) mmol/L Carbon Dioxide (22-30) mmol/L Anion Gap mmol/L BUN (7-17) mg/dL Creatinine (0.52-1.04) mg/dL Est GFR (CKD-EPI)AfAm (>60 ml/min/1.73 sqM) Est GFR (CKD-EPI)NonAf (>60 ml/min/1.73 sqM) Glucose (74-99) mg/dL POC Glucose (mg/dL) 132 H (70-110) mg/dL POC Glu Marketing Sales Supervisor ID Coral Mendez Calcium (8.4-10.2) mg/dL Total Bilirubin (0.2-1.3) mg/dL AST (14-36) U/L ALT (4-34) U/L Alkaline Phosphatase (38-126) U/L Troponin I (0.000-0.034) ng/mL Total Protein (6.3-8.2) g/dL Albumin (3.5-5.0) g/dL Urine Opiates Screen (NotDetected) Ur Oxycodone Screen (NotDetected) Urine Methadone Screen (NotDetected) Ur Propoxyphene Screen (NotDetected) Ur Barbiturates Screen (NotDetected) U Tricyclic Antidepress (NotDetected) Ur Phencyclidine Scrn (NotDetected) Ur Amphetamines Screen (NotDetected) U Methamphetamines Scrn (NotDetected) U Benzodiazepines Scrn (NotDetected) Urine Cocaine Screen (NotDetected) U Marijuana (THC) Screen (NotDetected) Serum Alcohol mg/dL 01/20/22 01/20/22 01/20/22 Range/Units 18:50 18:50 19:22 WBC (3.8-10.6) k/uL RBC (3.80-5.40) m/uL Hgb (11.4-16.0) gm/dL Hct (34.0-46.0) % MCV (80.0-100.0) fL MCH (25.0-35.0) pg MCHC (31.0-37.0) g/dL RDW (11.5-15.5) % Plt Count (150-450) k/uL MPV Neutrophils % % Lymphocytes % % Monocytes % % Eosinophils % % Basophils % % Neutrophils # (1.3-7.7) k/uL Lymphocytes # (1.0-4.8) k/uL Monocytes # (0-1.0) k/uL Eosinophils # (0-0.7) k/uL Basophils # (0-0.2) k/uL PT (9.0-12.0) sec INR (<1.2) APTT (22.0-30.0) sec Sodium 137 (137-145) mmol/L Potassium 3.3 L (3.5-5.1) mmol/L Chloride 105 (98-107) mmol/L Carbon Dioxide 25 (22-30) mmol/L Anion Gap 7 mmol/L BUN 14 (7-17) mg/dL Creatinine 0.67 (0.52-1.04) mg/dL Est GFR (CKD-EPI)AfAm >90 (>60 ml/min/1.73 sqM) Est GFR (CKD-EPI)NonAf 86 (>60 ml/min/1.73 sqM) Glucose 129 H (74-99) mg/dL POC Glucose (mg/dL) (70-110) mg/dL POC Glu Marketing Sales Supervisor ID Calcium 8.3 L (8.4-10.2) mg/dL Total Bilirubin 0.8 (0.2-1.3) mg/dL AST 33 (14-36) U/L ALT 23 (4-34) U/L Alkaline Phosphatase 75 (38-126) U/L Troponin I <0.012 (0.000-0.034) ng/mL Total Protein 6.5 (6.3-8.2) g/dL Albumin 4.0 (3.5-5.0) g/dL Urine Opiates Screen Detected H (NotDetected) Ur Oxycodone Screen Not Detected (NotDetected) Urine Methadone Screen Not Detected (NotDetected) Ur Propoxyphene Screen Not Detected (NotDetected) Ur Barbiturates Screen Not Detected (NotDetected) U Tricyclic Antidepress Not Detected (NotDetected) Ur Phencyclidine Scrn Not Detected (NotDetected) Ur Amphetamines Screen Not Detected (NotDetected) U Methamphetamines Scrn Not Detected (NotDetected) U Benzodiazepines Scrn Not Detected (NotDetected) Urine Cocaine Screen Not Detected (NotDetected) U Marijuana (THC) Screen Not Detected (NotDetected) Serum Alcohol <10 mg/dL Disposition Clinical Impression: Femur fracture Disposition: ADMITTED IP TO THIS HOSP Condition: Serious Referrals: Milton La DO [Primary Care Provider] - 1-2 days Decision Time: 20:01
[2022-01-20] MEDS ORDERED: ONDANSETRON 4 MG/2 ML VIAL IVP STA (18:48)
[2022-01-20 18:51] LABS: Glucose,Whole Blood 132 mg/dL (70-110)
[2022-01-20 19:15] LABS: Basophils # (A) 0.1 k/uL (0-0.2); Basophils % (A) 1 %; Eosinophils # (A) 0.1 k/uL (0-0.7); Eosinophils % (A) 0 %; HCT 38.2 % (34.0-46.0); HGB 13.2 gm/dL (11.4-16.0); Lymphocytes % (A) 8 %; MCH 32.4 pg (25.0-35.0); MCHC 34.5 g/dL (31.0-37.0); MCV 94.2 fL (80.0-100.0); Mean Platelet Volume 9.1; Monocytes # (A) 0.4 k/uL (0-1.0); Monocytes % (A) 3 %; Neutrophils # (A) 11.8 k/uL (1.3-7.7); Neutrophils % (A) 88 %; Platelet Count 186 k/uL (150-450); RBC 4.05 m/uL (3.80-5.40); RDW 13.2 % (11.5-15.5); WBC 13.4 k/uL (3.8-10.6)
[2022-01-20 19:26] LABS: ALT 23 U/L (4-34); AST 33 U/L (14-36); African American GFR (CKD) >90 (>60 ml/min/1.73 sqM); Alcohol <10 mg/dL; Alkaline Phosphatase 75 U/L (38-126); Anion Gap 7 mmol/L; Blood Urea Nitrogen 14 mg/dL (7-17); Calcium 8.3 mg/dL (8.4-10.2); Carbon Dioxide 25 mmol/L (22-30); Chloride 105 mmol/L (98-107); Glucose 129 mg/dL (74-99); Non-African American GFR(CKD) 86 (>60 ml/min/1.73 sqM); Potassium 3.3 mmol/L (3.5-5.1); Prothrombin Time 10.9 sec (9.0-12.0); Sodium 137 mmol/L (137-145); Total Bilirubin 0.8 mg/dL (0.2-1.3); Total Protein 6.5 g/dL (6.3-8.2)
--- NOTE | 2022-01-20 19:32 | CT ---
EXAMINATION TYPE: CT brain salinaine wo con DATE OF EXAM: 01/20/2022 COMPARISON: 10/02/2019 HISTORY: pain after fall CT DLP: 1552 mGycm Automated exposure control for dose reduction was used. Images of the brain and cervical spine obtained with no contrast. There is mild cerebral atrophy. There is no mass effect or midline shift. No sign of intracranial hem orrhage. Calvarium is intact The cervical vertebra show fairly normal spacing. Posterior elements are intact. There is multilevel hypertrophic cervical facet arthropathy. No compression fracture. Prevertebral soft tissues are intac t. IMPRESSION: Multilevel mild cervical facet arthropathy changes. No fracture. There is mild cerebral atrophy appropriate for age. No acute intracranial abnormality
--- NOTE | 2022-01-20 19:34 | XR ---
EXAMINATION TYPE: XR Hip RT and AP Pelvis DATE OF EXAM: 01/20/2022 COMPARISON: NONE HISTORY: Fall. Pain TECHNIQUE: 3 views FINDINGS: There is slightly impacted subcapital fracture right femur. There is no dislocation. There is 1.5 cm impaction. No focal bone destruction. Pelvic ring is intact. Proximal left femur is intact. IMPRESSION: Acute impacted subcapital fracture right femur.
--- NOTE | 2022-01-20 19:36 | XR ---
EXAMINATION TYPE: XR chest 1V portable DATE OF EXAM: 01/20/2022 COMPARISON: 05/16/2021 HISTORY: Pain. Fell off the ladder. TECHNIQUE: Single view FINDINGS: Heart is normal. There is mild coarsening of interstitial markings. Thoracic aorta is ather omatous. No pleural effusion. Bony thorax is intact. IMPRESSION: Mild pulmonary fibrosis. No acute lung disease. Hiatal hernia noted. No change.
[2022-01-20] MEDS ORDERED: MAG HYDROX/AL HYDROX/SIMETH 30 ML, HYOSCYAMINE ELIXIR 10 ML, LIDOCAINE VISCOUS 2% 10 ML PO STA ×3 (19:41)
[2022-01-20 19:48] LABS: Amphetamine Screen,Urine Not Detected (NotDetected); Benzodiazepines Screen,Urine Not Detected (NotDetected); Cocaine Screen,Urine Not Detected (NotDetected); Opiate Screen,Urine Detected (NotDetected); Phencyclidine Screen,Urine Not Detected (NotDetected); Tricyclic Antidepressant,Urine Not Detected (NotDetected); Urn Cannabinoid Scrn Not Detected (NotDetected)
[2022-01-20 19:49] LABS: Barbiturate Screen,Urine Not Detected (NotDetected); Methadone Screen, Urine Not Detected (NotDetected); Oxycodone Screen, Urine Not Detected (NotDetected)
[2022-01-20] MEDS ORDERED: NALOXONE 0.4 MG/ML 1 ML VIAL IV PRN (19:56)
[2022-01-20] MEDS ORDERED: ACETAMINOPHEN TAB 325 MG TAB PO PRN (19:56)
[2022-01-20] MEDS ORDERED: TEMAZEPAM 15 MG CAP PO PRN (19:56)
--- NOTE | 2022-01-20 20:01 | P.PN ---
Progress Note - Text Progress Note Date: 01/20/22 Spoke to ED. Pt with femoral neck fracture. Will admit with medicine consult for clearance. Plan for OR tomorrow for hemiarthroplasty right hip. Full consult pending. -Admit -Labs -Full rt femur xray -Hold anticoags -Medicine consult for clearance -NPO @HI
--- NOTE | 2022-01-20 20:24 | XR ---
EXAMINATION TYPE: XR femur RT DATE OF EXAM: 01/20/2022 COMPARISON: NONE HISTORY: Fall. Pain. TECHNIQUE: 4 views FINDINGS: There is impacted subcapital fracture right femur. No dislocation at the hip joint. The kne e joint appears anatomic. No sign of any joint effusion. IMPRESSION: Acute impacted subcapital fracture right femur.
[2022-01-20] MEDS: SODIUM CHLORIDE 0.9% 1,000 ML IV SCH (20:30)
[2022-01-20] MEDS ORDERED: MORPHINE SULFATE 4 MG/ML SYRINGE IVP STA (23:05)
[2022-01-21] MEDS ORDERED: POTASSIUM CHLORIDE ER 20 MEQ TAB.ER PO STA (02:37)
--- NOTE | 2022-01-21 02:38 | P.CONS ---
History of Present Illness - Reason for Consult Consult date: 01/21/22 - History of Present Illness The patient is a 76-year-old female with a PMH of A. juan francisco on Xarelto, hypertension, and hyperlipidemia who presents to the emergency room brought in by EMS after a fall at home. The patient reports that she was working in her shed on a ladder trying to take down [employer] decorations from storage when she lost her footing and fell to the ground hitting her right hip. She reports immediate severe pain at the site and being unable to stand up. She subsequently laid on the ground of her shed screaming for help from 1 PM until about 6. Her neighbors found her and activated EMS. The patient reports that her right hip pain has improved and is currently at a 3 out of 10 at the time of interview. She denied experiencing head trauma or loss of consciousness. Denied experiencing chest discomfort, shortness of breath, fever, chills, cough, nausea, vomiting, abdominal pain, diarrhea. In the emergency room, a right femoral x-ray revealed an acute impacted subcapital fracture of the right femur. Head and cervical spine CT was unremarkable with chest x-ray showing mild pulmonary fibrosis. EKG revealed sinus rhythm at 95 bpm with no acute ST/T-wave changes noted as reviewed by me. Laboratory evaluation was remarkable for leukocytosis of 13.4, potassium 3.3, and urine tox screen positive for opiates. Review of systems: Pertinent positives and negatives as discussed in HPI, a complete review of systems was performed and all other systems are negative. Physical examination: General: non toxic, no distress, appears at stated age, obese Derm: no unusual rashes/lesions, warm Head: atraumatic, normocephalic, symmetric Eyes: EOMI, no lid lag, anicteric sclera, pupils equal round reactive to light ENT: Nose and ears atraumatic Neck: No cervical lymphadenopathy, trachea midline, supple Mouth: no lip lesion, mucus membranes moist Cardiovascular: S1S2 reg, no murmur, positive dorsalis pedis pulse bilateral, no edema Lungs: CTA bilateral, no rhonchi, no rales, no accessory muscle use Abdominal: soft, nontender to palpation, no guarding Ext: muscle strength 5 out of 5 in all extremities except right lower extremity grossly, distal right lower extremity strength 5 out of 5, right hip lateral tenderness on palpation with no overlying skin abnormalities, no gross muscle atrophy, no contractures, Neuro: CN II-XI grossly intact, no gross focal neuro deficits Psych: Alert, oriented, appropriate affect Assessment/plan Preoperative evaluation -RCRI score 0 points = 3.9% 30 day risk of , [place], or cardiac arrest -METS > 4 -The patient reports good exercise tolerance and does not require assisted devices at home -No obvious modifiable risk factors -Will order potassium replacement and recommend recheck prior to surgery -Hold patient's home Xarelto in anticipation of surgery Chronic conditions: Hypertension, hyperlipidemia, A. fib -Continue with home meds -Insulin sliding scale and blood glucose monitoring Traumatic right hip fracture -Defer management including DVT prophylaxis and pain control to the primary surgery service Past Medical History Past Medical History: Atrial Fibrillation, GERD/Reflux, Hyperlipidemia, Hypertension, Osteoarthritis (OA) Additional Past Medical History / Comment(s): , FREQUENT DIARREHA, PT STATES NO RIGHT EAR, fx rt shoulder 10/02/19 wears sling History of Any Multi-Drug Resistant Organisms: None Reported Past Surgical History: Appendectomy, Cardiac Ablation, Cholecystectomy, Heart Catheterization, Hysterectomy Additional Past Surgical History / Comment(s): LOOP RECORDER X2. Past Anesthesia/Blood Transfusion Reactions: No Reported Reaction Additional Past Anesthesia/Blood Transfusion Reaction / Comm: PTS SISTER HAD SEVERE SWELLING WITH A BLOOD TRANSFUSION. Past Psychological History: Depression Smoking Status: Former smoker Past Alcohol Use History: Rare Past Drug Use History: None Reported - Past Family History Sister(s) Family Medical History: Cancer, Myocardial Infarction ([place]) Additional Family Medical History / Comment(s): BREAST CANCER WITH METS, LIVER CANCER Brother(s) Family Medical History: Cancer Additional Family Medical History / Comment(s): (3) BROTHERS- ARRYTHMIA Mother Family Medical History: Cancer Father Family Medical History: Cancer Medications and Allergies Home Medications Medication Instructions Recorded Confirmed Type Citalopram Hydrobromide [CeleXA] 20 mg PO HS@199910/07/14 01/20/22 History Omeprazole [PriLOSEC] 20 mg PO BID 10/07/14 01/20/22 History Salas/D3/Mag11/Zinc/Bobbin Drier/John/Bor 1 tab PO BID 08/05/21 01/20/22 History [Caltrate 600+D Plus Tablet] Metoprolol Succinate (ER) [Toprol 25 mg PO HS 08/05/21 01/20/22 History XL] Atorvastatin [Lipitor] 40 mg PO HS 01/20/22 01/20/22 History Losartan Potassium 50 mg PO DAILY 01/20/22 01/20/22 History Rivaroxaban [Xarelto] 20 mg PO DIRECTED 01/20/22 01/20/22 History Allergies Allergy/AdvReac Type Severity Reaction Status Date / Time No Known Allergies Allergy Verified 01/20/22 20:37 Physical Exam Vitals: Vital Signs Temp Pulse Resp BP Pulse Ox 01/21/22 00:00 94 16 159/85 98 01/20/22 23:00 102 H 18 167/82 97 01/20/22 22:00 100 16 140/79 98 01/20/22 21:00 98 16 158/84 97 01/20/22 20:00 98 16 148/77 97 01/20/22 18:41 97.7 F 90 16 169/107 91 L Intake and Output 01/20/22 01/20/22 01/21/22 14:59 22:59 06:59 Other: Weight 99.79 kg Results CBC & Chem 7: 01/20/22 18:50 01/20/22 18:50 Labs: Abnormal Lab Results - Last 24 Hours (Table) 01/20/22 01/20/22 01/20/22 Range/Units 18:47 18:50 18:50 WBC 13.4 H (3.8-10.6) k/uL Neutrophils # 11.8 H (1.3-7.7) k/uL Potassium 3.3 L (3.5-5.1) mmol/L Glucose 129 H (74-99) mg/dL POC Glucose (mg/dL) 132 H (70-110) mg/dL Calcium 8.3 L (8.4-10.2) mg/dL Urine Opiates Screen (NotDetected) 01/20/22 Range/Units 19:22 WBC (3.8-10.6) k/uL Neutrophils # (1.3-7.7) k/uL Potassium (3.5-5.1) mmol/L Glucose (74-99) mg/dL POC Glucose (mg/dL) (70-110) mg/dL Calcium (8.4-10.2) mg/dL Urine Opiates Screen Detected H (NotDetected)
[2022-01-21] MEDS: MORPHINE SULFATE 4 MG/ML SYRINGE IV PRN ×2 (03:03→07:05)
[2022-01-21] MEDS: SODIUM CHLORIDE 0.9% 1,000 ML IV SCH ×3 (03:50→20:48)
[2022-01-21] MEDS ORDERED: ONDANSETRON 4 MG/2 ML VIAL IVP STA (06:52)
[2022-01-21] MEDS ORDERED: LACTATED RINGERS 1,000 ML IV ONE ×2 (09:00→12:49)
[2022-01-21] MEDS ORDERED: TRANEXAMIC ACID 1,000 MG in SODIUM CHLORIDE 0.9% 100 ML IVPB ONE ×2 (10:01→10:03)
--- NOTE | 2022-01-21 10:11 | P.HPOR ---
History of Present Illness H&P Date: 01/21/22 Chief Complaint: Right hip pain 76-year-old female presents emergency department via EMS due to fall off ladder. She complains of pain in her right hip she is unable and related after the fall. She is on the right hip fracture. She denies a blunt head trauma or loss of consciousness with the fall. She denies any other injuries at this time. Review of Systems 14 points review of systems completed and as stated in HPI, all other systems reviewed are negative. All systems: negative Past Medical History Past Medical History: Atrial Fibrillation, GERD/Reflux, Hyperlipidemia, Hypertension, Osteoarthritis (OA) Additional Past Medical History / Comment(s): , FREQUENT DIARREHA, PT STATES NO RIGHT EAR, fx rt shoulder 10/02/19 wears sling History of Any Multi-Drug Resistant Organisms: None Reported Past Surgical History: Appendectomy, Cardiac Ablation, Cholecystectomy, Heart Catheterization, Hysterectomy Additional Past Surgical History / Comment(s): LOOP RECORDER X2. Past Anesthesia/Blood Transfusion Reactions: No Reported Reaction Additional Past Anesthesia/Blood Transfusion Reaction / Comment(s): PTS SISTER HAD SEVERE SWELLING WITH A BLOOD TRANSFUSION. Past Psychological History: Depression Smoking Status: Former smoker Past Alcohol Use History: Rare Past Drug Use History: None Reported - Past Family History Sister(s) Family Medical History: Cancer, Myocardial Infarction ([place]) Additional Family Medical History / Comment(s): BREAST CANCER WITH METS, LIVER CANCER Brother(s) Family Medical History: Cancer Additional Family Medical History / Comment(s): (3) BROTHERS- ARRYTHMIA Mother Family Medical History: Cancer Father Family Medical History: Cancer Medications and Allergies Home Medications Medication Instructions Recorded Confirmed Type Citalopram Hydrobromide [CeleXA] 20 mg PO HS@199910/07/14 01/20/22 History Omeprazole [PriLOSEC] 20 mg PO BID 10/07/14 01/20/22 History Salas/D3/Mag11/Zinc/Banquet Houseperson/John/Bor 1 tab PO BID 08/05/21 01/20/22 History [Caltrate 600+D Plus Tablet] Metoprolol Succinate (ER) [Toprol 25 mg PO HS 08/05/21 01/20/22 History XL] Atorvastatin [Lipitor] 40 mg PO HS 01/20/22 01/20/22 History Losartan Potassium 50 mg PO DAILY 01/20/22 01/20/22 History Rivaroxaban [Xarelto] 20 mg PO DIRECTED 01/20/22 01/20/22 History Allergies Allergy/AdvReac Type Severity Reaction Status Date / Time No Known Allergies Allergy Verified 01/20/22 20:37 Physical Examination Osteopathic Statement: *. No significant issues noted on an osteopathic structural exam other than those noted in the History and Physical/Consult. Physical Exam: -Patient is alert and oriented 3 appears well-nourished well-hydrated is in no acute distress. They do not appear septic. -There is TTP right hip -Upper extremities show [5] out of 5 strength in all major muscle groups. [##EXCEPT] -Lower extremities with [5] out of 5 strength in all major muscle groups right lower extremity secondary to pain -There is [FROM] that is [painless] of the b/l UE and LE in all major joints. positive pain with logroll right hip -They are intact to light touch sensation in C5 to T1 and L2 to S1 nerve distribution. -DTR [2]/4 all upper and lower extremities -Patient has palpable distal pulses all 4 ext -Compartments are soft and compressible. -Patient shows a negative Ankit's [-Neg Hoffmans b/l] [-Neg Clonus b/l] [-Neg babinski b/l] Cranial nerves II through XII are grossly intact. Results AP pelvis AP lateral right hip and femur demonstrate a right femoral neck fracture which is complete and displaced. There is no fracture about the pelvis or remainder of the femur. - Labs Labs: Abnormal Lab Results - Last 24 Hours (Table) 01/20/22 01/20/22 01/20/22 Range/Units 18:47 18:50 18:50 WBC 13.4 H (3.8-10.6) k/uL Neutrophils # 11.8 H (1.3-7.7) k/uL Potassium 3.3 L (3.5-5.1) mmol/L Glucose 129 H (74-99) mg/dL POC Glucose (mg/dL) 132 H (70-110) mg/dL Calcium 8.3 L (8.4-10.2) mg/dL Urine Opiates Screen (NotDetected) 01/20/22 Range/Units 19:22 WBC (3.8-10.6) k/uL Neutrophils # (1.3-7.7) k/uL Potassium (3.5-5.1) mmol/L Glucose (74-99) mg/dL POC Glucose (mg/dL) (70-110) mg/dL Calcium (8.4-10.2) mg/dL Urine Opiates Screen Detected H (NotDetected) H & H 01/20/22 Range/Units 18:50 Hgb 13.2 (11.4-16.0) gm/dL Hct 38.2 (34.0-46.0) % Coagulation 01/20/22 Range/Units 18:50 INR 1.0 (<1.2) Result Diagrams: 01/20/22 18:50 01/21/22 07:24 Assessment and Plan Assessment: 76-year-old female status post fall off ladder with right hip pain right femoral neck fracture complete and displaced Plan: Orthopedic Surgery Risk Review Yoselin is a 76-year-old female presenting for evaluation of sudden onset right hip pain pain, inability to ambulate after fall off ladder. It was my pleasure to have seen and examined Yoselin. In our visit today we have had a chance to go over subjective complaints, physical examination findings and treatments including the natural course history without intervention and various interventional options. her imaging demonstrates right femoral neck fracture completely displaced. On physical exam, Yoselindemonstrates pain with motion of right lower extremity, which is NV intact at this time. I have explained to the patient that this fracture needs stabilization. Based on the patients imaging, physical exam, and the rapid progression and disabling nature of her symptoms, at this time I recommend surgery in the form or a: right hip hemiarthroplasty I discussed the risk and benefits of this procedure at length with Yoselin. Questions were invited and answered, and the patient wishes to proceed as outlined below. Currently, I am recommendin. right hip hemiarthroplasty 2. Review of surgical risks and benefits as well as an educational packet on the proposed surgical procedure. Risks: All surgical procedures come with inherent risks, including those related to positioning, anesthesia, intraoperative findings, and postoperative complications. It is important to understand that surgery does not come with any guarantee of a successful outcome as complications and adverse events are always possible. The patient was given a handout discussing the surgical procedure and risks associated with the intervention, both of which were discussed with the patient. These risks include but are not limited to the following: - Experiencing same, different or even worse symptoms compared to before surgery. - Requiring further surgery or other forms of treatment presently or at s ome time in the future . - On an extreme but fortunately relatively rare basis severe complication such as blindness, stroke, heart attack, temporary and/or permanent nerve injury, paralysis, coma, or may occur, sometimes without known explanation. - Surgical complications may include but are not limited to risk of infection, fluid accumulation in the surgical dissection site, including a seroma or hematoma, that requires additional surgery, wound drainage, bleeding, new numbness or weakness, vision changes/loss, spinal fluid leakage, non-healing and/or infected incision, headaches, difficulty or inability to swallow, hoarseness, hemopneumothorax, pneumothorax, injury to nerves, spinal cord, blood vessels, lymphatics or other vital organs (i.e., bowel injury, injury to the great vessels); heterotopic bone formation; complications related to the hardware such as screws, rods, including misplaced hardware, device failure, hardware fracture/breakage, or hardware loosening; retained surgical instrumentations or devices and the need for further surgery. - Medical risks of the planned surgery include but are not limited to generalized Infections to the whole body or local areas outside of the surgical site (sepsis), heart attack, bleeding, anaphylaxis, meningitis, seizure, epilepsy, hearing loss, burn voss, laceration of the head or other areas of the body, bruising, hypersensitivity of the skin, bladder over distension; allergic reaction; shoulder injury related to positioning; fat, blood and air clots to other areas of the body like heart, lungs, brain; failure of internal organs such as lungs, kidneys, liver and excessive bleeding. If blood transfusions are necessary, note that transfusions may cause intolerance reactions such as anaphylaxis or other complex reactions. Despite best efforts, the results of surgery might not heal in terms of bone, soft tissues such as skin, fascia, ligaments, and joints. [facility] has multiple operating rooms with single and overlapping rooms running daily. They currently function under the required guidelines as produced by the Senate Finance Committee with regards to the overlapping rooms and will continue to comply with changes to this policy as they occur. The requirements include and are complied with as follows: (1) the critical portions of the overlapping rooms will not occur at the same time, (2) the attending physician will be physically present during the critical portions of the procedure and immediately available during the entire case, and (3) a back-up attending is designated should the primary attending not be immediately available. The patient has had a chance to review all the listed information, has been given print outs detailing this information, and has had all his/her questions answered to their satisfaction. It was my pleasure to have seen and examined Yoselin. In our visit today we have had a chance to go over my understanding of our patient's current condition, the natural course history without intervention and various interventional options. Questions were invited and answered, and the patient wishes to proceed as outlined above. I have seen and examined the patient for 25 minutes and we have spent more than 50% of the time in repeat and detailed counseling about the patient's condition, its natural course history with out and as much as can be predicted with surgery and re-review of various surgical treatment options. In conclusion, Yoselin requested we proceed with the above suggested surgery and are willing to accept risks and limitations of the suggested surgery as nature of the disease process and our best attempts at treatment for the condition. Thank you again for allowing us to be part of your patient's care. Please don't hesitate to contact me if you have any further questions. Signed and authenticated by: Shashi Waldron [facility] [address] [address]
[2022-01-21] MEDS ORDERED: NEOSTIGMINE 1 MG/ML 10 ML VIAL ONE (11:00)
[2022-01-21] MEDS ORDERED: PHENYLEPHRINE-0.9% NACL SYG 1,000 MCG/10 ML SYRINGE ONE (11:00)
[2022-01-21] MEDS ORDERED: TRANEXAMIC ACID IN NACL,ISO-OS 1,000 MG/100 ML BAG ONE (11:00)
[2022-01-21] MEDS ORDERED: GLYCOPYRROLATE 0.2 MG/ML 2 ML VIAL ONE (11:00)
[2022-01-21] MEDS ORDERED: ROCURONIUM 10 MG/ML (5 ML VIAL) IV ONE (11:00)
[2022-01-21] MEDS ORDERED: MIDAZOLAM 2 MG/2 ML VIAL ONE (11:00)
[2022-01-21] MEDS ORDERED: fentaNYL (PF) 50 MCG/ML 2 ML AMP ONE (11:00)
[2022-01-21] MEDS ORDERED: PROPOFOL 10 MG/ML 20 ML VIAL IV ONE (11:00)
[2022-01-21] MEDS ORDERED: LIDOCAINE 2% INJ 20 MG/ML (2 ML VIAL) ONE (11:00)
[2022-01-21] MEDS ORDERED: SUCCINYLCHOLINE CHLORIDE 200 MG/10 ML VIAL IV ONE (11:00)
[2022-01-21] MEDS ORDERED: ceFAZolin 1,000 MG in SODIUM CHLORIDE 0.9% 1,000 ML IRRIGATION ONE (12:14)
[2022-01-21] MEDS ORDERED: HYDROmorphone 0.5 MG/0.5 ML SYRINGE IVP PRN (13:30)
[2022-01-21] MEDS ORDERED: traMADol 50 MG TAB PO PRN (13:30)
[2022-01-21] MEDS ORDERED: MAGNESIUM HYDROXIDE 2,400 MG/10 ML CUP PO PRN (13:30)
[2022-01-21] MEDS ORDERED: HYDROcodone/APAP 5-325MG 1 EACH TAB PO PRN (13:30)
[2022-01-21] MEDS ORDERED: HYDROmorphone 0.5 MG/0.5 ML SYRINGE IVP ONE ×2 (13:49→14:55)
[2022-01-21] MEDS ORDERED: METOPROLOL TARTRATE 5 MG/5 ML VIAL IVP ONE (13:57)
--- NOTE | 2022-01-21 15:03 | XR ---
EXAMINATION TYPE: XR Hip Complete RT DATE OF EXAM: 01/21/2022 2:58 PM INDICATION: Patient age:Female; 76 years old; Reason for study: s/p right hip hemiarthroplasty; [facility]. COMPARISON: Right femur radiograph 01/20/2022, right hip radiograph 01/20/2022. TECHNIQUE: The right hip was examined in the frontal ejection. FINDINGS: Postsurgical changes from right total hip arthroplasty for previously demonstrated subcapit al proximal femur fracture. Hardware appears intact with appropriate alignment. No new fractures iden tified. There is associated soft tissue edema and gas. IMPRESSION: Postsurgical changes from right total hip arthroplasty. Hardware appears intact with appropriate alig nment.
[2022-01-21] MEDS ORDERED: hydrALAZINE HCL 20 MG/ML 1 ML VIAL IVP ONE (15:05)
[2022-01-21] MEDS: LOSARTAN 50 MG TAB PO SCH (16:02)
--- NOTE | 2022-01-21 16:06 | P.PN ---
Subjective Progress Note Date: 01/21/22 Patient is a 76-year-old female with A. fib on Xarelto, hypertension, and hyperlipidemia who presents to the emergency room via EMS after a fall at home. The emergency room she was found to have an acute impacted subcapital fracture on the right, and cervical spine CT was unremarkable. Laboratory analysis demonstrated leukocytosis of 13.4, potassium 3.3, and urine tox positive for opiates. She underwent a right hemiarthroplasty. She did have some hypertension the postoperative period. Patient seen and examined at bedside. She is on postoperative. She was somewhat lethargic. She denies any pain. She is slightly nauseated but does not want any medications for this. She denies any chest pain or shortness of breath. General: nontoxic, no distress, appears at stated age Derm: warm, dry Head: atraumatic, normocephalic, symmetric Eyes: EOMI, no lid lag, anicteric sclera Mouth: no lip lesion, mucus membranes moist Cardiovascular: S1S2 reg, no murmur, positive posterior tibial pulse bilateral, Lungs: CTA bilateral, no rhonchi, no rales , no accessory muscle use Abdominal: soft, nontender to palpation, no guarding, no appreciable organomegaly Ext: no gross muscle atrophy, no edema, no contractures Neuro: CN II-XI grossly intact, no focal neuro deficits Psych: Lethargic, oriented, appropriate affect Assessment/plan: 76-year-old female with right femoral fracture status post right total hip arthroplasty Atrial fibrillation, paroxysmal -Xarelto -Toprol Hypertension -Losartan, metoprolol -Follow blood pressures Dyslipidemia -Statin Thank you for allowing us to participate in the care of this pleasant patient. Do not hesitate to contact us with questions. Someone can be reached from the [facility] hospitalist group all hours of the day at [phone] or via perfect serve. Objective - Vital Signs Vital signs: Vital Signs Temp 98.0 F 01/21/22 13:17 Pulse 79 01/21/22 15:30 Resp 17 01/21/22 15:30 BP 139/67 01/21/22 15:30 Pulse Ox 96 01/21/22 15:30 FiO2 6 01/21/22 14:30 Intake & Output 01/20/22 01/21/22 01/21/22 18:59 06:59 18:59 Intake Total 1101 Output Total 450 Balance 651 Weight 99.79 kg Intake: IV 1101 Output: Urine 400 Estimated Blood Loss 50 - Labs CBC & Chem 7: 01/20/22 18:50 01/21/22 07:24 Labs: Abnormal Lab Results - Last 24 Hours (Table) 01/20/22 01/20/22 01/20/22 Range/Units 18:47 18:50 18:50 WBC 13.4 H (3.8-10.6) k/uL Neutrophils # 11.8 H (1.3-7.7) k/uL Potassium 3.3 L (3.5-5.1) mmol/L Glucose 129 H (74-99) mg/dL POC Glucose (mg/dL) 132 H (70-110) mg/dL Calcium 8.3 L (8.4-10.2) mg/dL Urine Opiates Screen (NotDetected) 01/20/22 Range/Units 19:22 WBC (3.8-10.6) k/uL Neutrophils # (1.3-7.7) k/uL Potassium (3.5-5.1) mmol/L Glucose (74-99) mg/dL POC Glucose (mg/dL) (70-110) mg/dL Calcium (8.4-10.2) mg/dL Urine Opiates Screen Detected H (NotDetected)
[2022-01-21] MEDS: HYDROcodone/APAP 7.5-325MG 1 EACH TAB PO PRN (17:49)
[2022-01-21] MEDS ORDERED: LOSARTAN 25 MG TAB PO ONE (18:00)
[2022-01-21] MEDS: RIVAROXABAN 20 MG TAB PO SCH (18:05)
[2022-01-21] MEDS: ATORVASTATIN 40 MG TAB PO SCH (20:44)
[2022-01-21] MEDS: METOPROLOL SUCCINATE (ER) 25 MG TAB.ER.24H PO SCH (20:44)
[2022-01-21] MEDS: SENNOSIDES-DOCUSATE SODIUM 1 EACH TAB PO SCH (20:44)
[2022-01-22] MEDS: HYDROcodone/APAP 7.5-325MG 1 EACH TAB PO PRN ×2 (01:20→08:57)
[2022-01-22] MEDS: SODIUM CHLORIDE 0.9% 1,000 ML IV SCH ×3 (03:23→18:32)
--- NOTE | 2022-01-22 07:57 | P.PN ---
Subjective Progress Note Date: 01/22/22 Principal diagnosis: Fall with trauma Right Hip pain Patient seen and examined at bedside. Patient has been resting in bed, states she has not been up since procedure. Encouraged patient to be up out of bed with meals and to work with physical therapy today. Surgical dressing is clean dry and intact, no shadowing noted. Incentive spirometer to be ordered, not at bedside. Patient is able to move bilateral lower extremities without difficulty. She denies any fever/chills, nausea/vomiting, or chest pain. Objective - Vital Signs Vital signs: Vital Signs Temp 98.1 F 01/22/22 02:00 Pulse 104 H 01/22/22 02:00 Resp 17 01/22/22 02:00 BP 182/66 01/22/22 02:00 Pulse Ox 92 L 01/21/22 20:00 FiO2 6 01/21/22 14:30 Intake & Output 01/21/22 01/22/22 01/22/22 18:59 06:59 18:59 Intake Total 1101 Output Total 450 750 Balance 651 -750 Weight 99.79 kg Intake: IV 1101 Output: Urine 400 750 Estimated Blood Loss 50 Other: Voiding Method Indwelling Catheter Indwelling Catheter - Exam Physical Examination General: The patient is awake and alert, in no acute distress Skin: Skin is warm and dry with no obvious rashes or lesions. Hairy patches absent, no dorsal skin dimples, no cafe au lait spots. Surgical incision to right hip is CDI, no shadowing. TTP right hip Eye: Pupils are equal, round and reactive to light, extra-ocular movements are intact; there is normal conjunctiva bilaterally. Neck: The neck is supple, there is no tenderness and ROM intact. Cardiovascular: There is a regular rate and rhythm. No murmur, rub or gallop is appreciated. Respiratory: Lungs are clear to auscultation, respirations are non-labored, breath sounds are equal. Gastrointestinal: Soft, non-distended, non-tender abdomen. Back: There is no tenderness to palpation in the midline, paralumbar, parathoracic or buttocks region. There is no obvious deformity . Musculoskeletal: ROM limited secondary to pain and stiffness from surgical procedure. Muscle strength in all major muscle groups of bilateral upper extremities 5/5, left lower extremities 5/5, right lower extremity 4/5 Neurological: CN 2-12 intact. There are no obvious motor or sensory deficits. Movement and coordination equal and intact. Sensory exam to light touch intact C5-T1 and intact from L2-S1. Reflexes 2/4 in bilateral upper and lower extremities. Negative Hoffmans, babinski, and clonus signs. Psychiatric: Cooperative, appropriate mood & affect, normal judgment. - Labs CBC & Chem 7: 01/20/22 18:50 01/21/22 07:24 Assessment and Plan Assessment: right femoral neck fracture which is complete and displaced Post Op Day 1: Total Right Hip Arthroplasty Plan: -Appreciate portrait consultant and team management. -Activity: Ambulate QID, OOB all meals, up and about, limit lifting bending twisting to less than 5 lbs. Use walker or cane if needed for stability. -Daily PT/OT, increase ambulation strength and balance. -Pain control: Adequate at this time -Meds: reviewed -GI ppx: senna, Miralax -DC tsang when up and about, bedside commode if needed -DVT PPX: Xarelto -Hygiene: Shower today. Maintain dressing clean and dry. Meticulous cleaning after BMs away from the incision site -Encourage IS 10x/hr -Dispo: Anticipate discharge home with homecare *I reviewed and discussed this case with my attending Dr. Hoyos, whom has reviewed this chart and films and is in agreement with assessment and plan of care as outlined above. I have personally seen and examined the patient, performed the documentation and the assessment and plan as written. Number of minutes spent on the visit: 15m.
[2022-01-22] MEDS: LOSARTAN 50 MG TAB PO SCH (08:58)
[2022-01-22 10:20] LABS: Basophils # (A) 0.03 X 10*3/uL (0.00-0.10); Basophils % (A) 0.3 %; Eosinophils # (A) 0.07 X 10*3/uL (0.04-0.35); Eosinophils % (A) 0.7 %; HCT 32.2 % (37.2-46.3); HGB 10.9 g/dL (12.0-15.0); Immature Grans, Automated 0.4 %; Lymphocytes # (A) 1.05 X 10*3/uL (0.90-5.00); MCH 32.3 pg (27.0-32.0); MCHC 33.9 g/dL (32.0-37.0); MCV 95.5 fL (80.0-97.0); Mean Platelet Volume 11.2 fL (9.5-12.2); Monocytes # (A) 0.75 X 10*3/uL (0.20-1.00); Monocytes % (A) 7.1 %; NRBC Per 100 WBC 0 /100 WBCS (0.0-0.0); Neutrophils % (A) 81.5 %; Platelet Count 170 X 10*3/uL (140-440); RBC 3.37 X 10*6/uL (4.10-5.20); RDW 13.7 % (11.5-14.5); WBC 10.54 X 10*3/uL (4.50-10.00)
[2022-01-22 10:34] LABS: African American GFR (CKD) 103.3 (60.0-200.0); BUN/Creat Ratio 18.17 Ratio (12.00-20.00); Blood Urea Nitrogen 10.9 mg/dL (9.0-27.0); Calcium 8.2 mg/dL (8.7-10.3); Non-African American GFR(CKD) 89.2 (60.0-200.0); Potassium 3.5 mmol/L (3.5-5.5)
[2022-01-22] MEDS: MORPHINE SULFATE 4 MG/ML SYRINGE IV PRN (15:23)
[2022-01-22] MEDS: ONDANSETRON 4 MG/2 ML VIAL IVP PRN (15:24)
--- NOTE | 2022-01-22 18:00 | P.PN ---
Subjective Progress Note Date: 01/22/22 (delayed charting seen at 0945) Patient is a 76-year-old female with A. fib on Xarelto, hypertension, and hyperlipidemia who presents to the emergency room via EMS after a fall at home. The emergency room she was found to have an acute impacted subcapital fracture on the right, and cervical spine CT was unremarkable. Laboratory analysis demonstrated leukocytosis of 13.4, potassium 3.3, and urine tox positive for opiates. She underwent a right hemiarthroplasty. She did have some hyp ertension the postoperative period. Patient seen and examined at bedside. complains of feeling lethargic and having difficulty focusing. She also has a headache and some dizziness. She denies any chest pain or shortness of breath. She states was very difficult to concentrate she has overall foggy feeling. She does report striking her head with her fall. General: nontoxic, no distress, appears at stated age Derm: warm, dry Head: atraumatic, normocephalic, symmetric Eyes: EOMI, no lid lag, anicteric sclera Mouth: no lip lesion, mucus membranes moist Cardiovascular: S1S2 reg, no murmur, positive posterior tibial pulse bilateral, Lungs: CTA bilateral, no rhonchi, no rales , no accessory muscle use Abdominal: soft, nontender to palpation, no guarding, no appreciable organomegaly Ext: no gross muscle atrophy, no edema, no contractures Neuro: CN II-XI grossly intact, no focal neuro deficits Psych: Lethargic, oriented, appropriate affect Assessment/plan: 76-year-old female with right femoral fracture status post right total hip arthroplasty Acute blood loss anemia, anticipated outcome of surgery -Follow CBC -No indication for transfusion at this time Probable postconcussive syndrome -Consult speech therapy for cognitive evaluation -Supportive care Atrial fibrillation, paroxysmal -Xarelto -Toprol Hypertension -Losartan, metoprolol -Follow blood pressures Dyslipidemia -Statin Thank you for allowing us to participate in the care of this pleasant patient. Do not hesitate to contact us with questions. Someone can be reached from the [facility] hospitalist group all hours of the day at [phone] or via perfect serve. Objective - Vital Signs Vital signs: Vital Signs Temp 98.1 F 01/22/22 15:00 Pulse 97 01/22/22 15:00 Resp 17 01/22/22 15:00 BP 153/77 01/22/22 15:00 Pulse Ox 91 L 01/22/22 15:00 FiO2 6 01/21/22 14:30 Intake & Output 01/21/22 01/22/22 01/22/22 18:59 06:59 18:59 Intake Total 1101 1000 Output Total 450 750 Balance 651 -750 1000 Weight 99.79 kg Intake: IV 1101 Intake, IV Titration 1000 Amount Sodium Chloride 0.9% 1, 1000 000 ml @ 130 mls/hr IV . Q7H42M [facility] Rx#:[id number] Output: Urine 400 750 Estimated Blood Loss 50 Other: Voiding Method Indwelling Catheter Indwelling Catheter - Labs CBC & Chem 7: 01/22/22 06:11 01/22/22 06:11 Labs: Abnormal Lab Results - Last 24 Hours (Table) 01/22/22 01/22/22 Range/Units 06:11 06:11 WBC 10.54 H (4.50-10.00) X 10*3/uL RBC 3.37 L (4.10-5.20) X 10*6/uL Hgb 10.9 L (12.0-15.0) g/dL Hct 32.2 L (37.2-46.3) % MCH 32.3 H (27.0-32.0) pg Neutrophils # 8.60 H (1.80-7.70) X 10*3/uL Sodium 134 L (135-145) mmol/L Anion Gap 9.00 L (10.00-18.00) mmol/L Glucose 140 H (70-110) mg/dL Calcium 8.2 L (8.7-10.3) mg/dL
[2022-01-22] MEDS: RIVAROXABAN 20 MG TAB PO SCH (18:31)
[2022-01-22] MEDS: ATORVASTATIN 40 MG TAB PO SCH (20:26)
[2022-01-22] MEDS: SENNOSIDES-DOCUSATE SODIUM 1 EACH TAB PO SCH (20:26)
[2022-01-22] MEDS: METOPROLOL SUCCINATE (ER) 25 MG TAB.ER.24H PO SCH (20:26)
[2022-01-23] MEDS: MORPHINE SULFATE 4 MG/ML SYRINGE IV PRN (01:44)
[2022-01-23] MEDS: ONDANSETRON 4 MG/2 ML VIAL IVP PRN (01:51)
[2022-01-23] MEDS: HYDROcodone/APAP 7.5-325MG 1 EACH TAB PO PRN ×2 (06:02→16:43)
[2022-01-23] MEDS: SODIUM CHLORIDE 0.9% 1,000 ML IV SCH ×3 (06:15→18:57)
--- NOTE | 2022-01-23 07:52 | P.PN ---
Subjective Progress Note Date: 01/23/22 Principal diagnosis: Fall with trauma Right Hip pain Patient seen and examined at bedside. Patient is currently resting in bed. She states that she worked with physical therapy yesterday and had ambulated within room. Encouraged patient to continue to work with physical therapy and to be up to chair for all meals. Surgical dressing is clean dry and intact. Patient states her pain is managed on current regimen. She is able to move bilateral lower extremities without any difficulty. Patient denies any fevers/chills, nausea/vomiting, or chest pain. Objective - Vital Signs Vital signs: Vital Signs Temp 97.7 F 01/23/22 07:10 Pulse 101 H 01/23/22 07:10 Resp 13 01/23/22 07:10 BP 167/78 01/23/22 07:10 Pulse Ox 92 L 01/23/22 07:10 FiO2 6 01/21/22 14:30 Intake & Output 01/22/22 01/23/22 01/23/22 18:59 06:59 18:59 Intake Total 1000 Output Total 2500 Balance 1000 -2500 Intake: Intake, IV Titration 1000 Amount Sodium Chloride 0.9% 1, 1000 000 ml @ 130 mls/hr IV . Q7H42M [facility] Rx#:[id number] Output: Urine 2500 Other: Voiding Method Indwelling Catheter - Exam Physical Examination General: The patient is awake and alert, in no acute distress Skin: Skin is warm and dry with no obvious rashes or lesions. Hairy patches absent, no dorsal skin dimples, no cafe au lait spots. Surgical incision to right hip is CDI, no shadowing. TTP right hip Eye: Pupils are equal, round and reactive to light, extra-ocular movements are intact; there is normal conjunctiva bilaterally. Neck: The neck is supple, there is no tenderness and ROM intact. Cardiovascular: There is a regular rate and rhythm. No murmur, rub or gallop is appreciated. Respiratory: Lungs are clear to auscultation, respirations are non-labored, breath sounds are equal. Gastrointestinal: Soft, non-distended, non-tender abdomen. Back: There is no tenderness to palpation in the midline, paralumbar, parathoracic or buttocks region. There is no obvious deformity . Musculoskeletal: ROM limited secondary to pain and stiffness from surgical procedure. Muscle strength in all major muscle groups of bilateral upper extremities 5/5, left lower extremities 5/5, right lower extremity 4/5 Neurological: CN 2-12 intact. There are no obvious motor or sensory deficits. Movement and coordination equal and intact. Sensory exam to light touch intact C5-T1 and intact from L2-S1. Reflexes 2/4 in bilateral upper and lower extremities. Negative Hoffmans, babinski, and clonus signs. Psychiatric: Cooperative, appropriate mood & affect, normal judgment. - Labs CBC & Chem 7: 01/22/22 06:11 01/22/22 06:11 Labs: Abnormal Lab Results - Last 24 Hours (Table) 01/22/22 01/22/22 Range/Units 06:11 06:11 WBC 10.54 H (4.50-10.00) X 10*3/uL RBC 3.37 L (4.10-5.20) X 10*6/uL Hgb 10.9 L (12.0-15.0) g/dL Hct 32.2 L (37.2-46.3) % MCH 32.3 H (27.0-32.0) pg Neutrophils # 8.60 H (1.80-7.70) X 10*3/uL Sodium 134 L (135-145) mmol/L Anion Gap 9.00 L (10.00-18.00) mmol/L Glucose 140 H (70-110) mg/dL Calcium 8.2 L (8.7-10.3) mg/dL Assessment and Plan Assessment: Post Op Day 2: Right Hip Eddie-arthroplasty Fall with trauma Right Hip pain Right femoral neck fracture which is complete and displaced Plan: -Appreciate medical sales consultant and team management. -Activity: Ambulate QID, OOB all meals, up and about, limit lifting bending twisting to less than 5 lbs. Use walker or cane if needed for stability. -Daily PT/OT, increase ambulation strength and balance. -Pain control: Adequate at this time -Meds: reviewed -GI ppx: senna, Miralax -DC tsang when up and about, bedside commode if needed -DVT PPX: Xarelto -Hygiene: Shower today. Maintain dressing clean and dry. -Encourage IS 10x/hr -Dispo: Anticipate discharge home with homecare *I reviewed and discussed this case with my attending Dr. Hoyos, whom has reviewed this chart and films and is in agreement with assessment and plan of care as outlined above. I have personally seen and examined the patient, performed the documentation and the assessment and plan as written. Number of minutes spent on the visit: 15m.
[2022-01-23] MEDS ORDERED: bisacodyL 10 MG SUPP RECTAL PRN (09:02)
--- NOTE | 2022-01-23 09:03 | P.PN ---
Subjective Progress Note Date: 01/23/22 No new complaints today. Patient still has not had a bowel movement or passed gas. She says her appetite is poor. She has had limited mobility since surgery. I encouraged her to ambulate with help today as much as possible. Gen: awake, alert HEENT: normocephalic, atraumatic, good hearing acuity, moist mucous membranes Resp: good air exchange, breathing comfortably with no accessory muscle use CVS: good distal perfusion x 4, GI: soft, NTTP, ND : no SPT, no CVAT, tsang catheter is present MSK: no pitting edema, no clubbing Neuro: non-focal, moving all extremities Psych: cooperative, euthymic mood Assessment/plan: 76-year-old female with right femoral fracture status post right total hip art hroplasty Acute blood loss anemia, anticipated outcome of surgery -Follow CBC -No indication for transfusion at this time Constipation -bowel regimen Probable postconcussive syndrome -Consult speech therapy for cognitive evaluation -Supportive care Atrial fibrillation, paroxysmal -Xarelto -Toprol Hypertension -Losartan, metoprolol -Follow blood pressures Dyslipidemia -Statin Thank you for allowing us to participate in the care of this pleasant patient. Do not hesitate to contact us with questions. Someone can be reached from the [facility] hospitalist group all hours of the day at [phone] or via perfect serve. Objective - Vital Signs Vital signs: Vital Signs Temp 97.7 F 01/23/22 07:10 Pulse 101 H 01/23/22 07:10 Resp 13 01/23/22 07:10 BP 167/78 01/23/22 07:10 Pulse Ox 92 L 01/23/22 07:10 FiO2 6 01/21/22 14:30 Intake & Output 01/22/22 01/23/22 01/23/22 18:59 06:59 18:59 Intake Total 1000 Output Total 2500 Balance 1000 -2500 Intake: Intake, IV Titration 1000 Amount Sodium Chloride 0.9% 1, 1000 000 ml @ 130 mls/hr IV . Q7H42M [facility] Rx#:[id number] Output: Urine 2500 Other: Voiding Method Indwelling Catheter - Labs CBC & Chem 7: 01/22/22 06:11 01/22/22 06:11 Labs: Abnormal Lab Results - Last 24 Hours (Table) 01/22/22 01/22/22 Range/Units 06:11 06:11 WBC 10.54 H (4.50-10.00) X 10*3/uL RBC 3.37 L (4.10-5.20) X 10*6/uL Hgb 10.9 L (12.0-15.0) g/dL Hct 32.2 L (37.2-46.3) % MCH 32.3 H (27.0-32.0) pg Neutrophils # 8.60 H (1.80-7.70) X 10*3/uL Sodium 134 L (135-145) mmol/L Anion Gap 9.00 L (10.00-18.00) mmol/L Glucose 140 H (70-110) mg/dL Calcium 8.2 L (8.7-10.3) mg/dL
[2022-01-23] MEDS: polyethylene glycoL 3350 17 GM POWD.PACK PO SCH (09:35)
[2022-01-23] MEDS: LOSARTAN 50 MG TAB PO SCH (09:35)
[2022-01-23 10:36] LABS: HGB 9.6 g/dL (12.0-15.0); MCH 31.6 pg (27.0-32.0); MCHC 33.1 g/dL (32.0-37.0); MCV 95.4 fL (80.0-97.0); NRBC Per 100 WBC 0 /100 WBCS (0.0-0.0); Platelet Count 152 X 10*3/uL (140-440); RBC 3.04 X 10*6/uL (4.10-5.20); RDW 13.4 % (11.5-14.5); WBC 10.71 X 10*3/uL (4.50-10.00)
[2022-01-23 10:49] LABS: African American GFR (CKD) 107.7 (60.0-200.0); Anion Gap 8.9 mmol/L (10.00-18.00); BUN/Creat Ratio 20.79 Ratio (12.00-20.00); Calcium 7.8 mg/dL (8.7-10.3); Carbon Dioxide 25.5 mmol/L (20.0-27.5); Non-African American GFR(CKD) 92.9 (60.0-200.0); Potassium 3.3 mmol/L (3.5-5.5)
[2022-01-23] MEDS: RIVAROXABAN 20 MG TAB PO SCH (17:38)
[2022-01-23] MEDS: ATORVASTATIN 40 MG TAB PO SCH (20:19)
[2022-01-23] MEDS: METOPROLOL SUCCINATE (ER) 25 MG TAB.ER.24H PO SCH (20:19)
[2022-01-23] MEDS: SENNOSIDES-DOCUSATE SODIUM 1 EACH TAB PO SCH (20:19)
[2022-01-23] MEDS ORDERED: CITALOPRAM HYDROBROMIDE 20 MG TAB PO SCH (20:52)
[2022-01-24 07:35] VITALS: BP 167/90; PULSE 98; RESP 17; TEMP 97.8
--- NOTE | 2022-01-24 08:39 | P.PN ---
Subjective Progress Note Date: 01/24/22 Principal diagnosis: Fall with trauma Right Hip pain Patient seen and examined at bedside. Patient is sitting up in chair. She states that she worked with physical therapy and is tolerating the activity well. Surgical dressing is clean dry and intact. Patient states her pain is managed on current regimen. Tsang catheter to be discontinued today. Patient may be discharged today to [facility] when bed available. Patient denies any fevers/chills, nausea/vomiting, or chest pain. Objective - Vital Signs Vital signs: Vital Signs Temp 97.8 F 01/24/22 07:34 Pulse 98 01/24/22 07:34 Resp 17 01/24/22 07:34 BP 167/90 01/24/22 07:34 Pulse Ox 95 01/24/22 07:34 FiO2 6 01/21/22 14:30 Intake & Output 01/23/22 01/24/22 01/24/22 18:59 06:59 18:59 Intake Total 350 Output Total 400 300 Balance -50 -300 Intake: Oral 350 Output: Urine 400 300 Other: Voiding Method Indwelling Catheter Indwelling Catheter - Exam Physical Examination General: The patient is awake and alert, in no acute distress Skin: Skin is warm and dry with no obvious rashes or lesions. Hairy patches absent, no dorsal skin dimples, no cafe au lait spots. Surgical incision to right hip is CDI, TTP right hip Eye: Pupils are equal, round and reactive to light, extra-ocular movements are intact; there is normal conjunctiva bilaterally. Neck: The neck is supple, there is no tenderness and ROM intact. Cardiovascular: There is a regular rate and rhythm. No murmur, rub or gallop is appreciated. Respiratory: Lungs are clear to auscultation, respirations are non-labored, breath sounds are equal. Gastrointestinal: Soft, non-distended, non-tender abdomen. . Musculoskeletal: ROM limited secondary to pain and stiffness from surgical procedure. Muscle strength in all major muscle groups of bilateral upper extremities 5/5, left lower extremities 5/5, right lower extremity 4/5 Neurological: CN 2-12 intact. There are no obvious motor or sensory deficits. Movement and coordination equal and intact. Sensory exam to light touch intact C5-T1 and intact from L2-S1. Reflexes 2/4 in bilateral upper and lower extremities. Negative Hoffmans, babinski, and clonus signs. Psychiatric: Cooperative, appropriate mood & affect, normal judgment. - Labs CBC & Chem 7: 01/23/22 06:59 01/23/22 06:59 Labs: Abnormal Lab Results - Last 24 Hours (Table) 01/23/22 01/23/22 Range/Units 06:59 06:59 WBC 10.71 H (4.50-10.00) X 10*3/uL RBC 3.04 L (4.10-5.20) X 10*6/uL Hgb 9.6 L (12.0-15.0) g/dL Hct 29.0 L (37.2-46.3) % Sodium 132 L (135-145) mmol/L Potassium 3.3 L (3.5-5.5) mmol/L Anion Gap 8.90 L (10.00-18.00) mmol/L Creatinine 0.5 L (0.6-1.5) mg/dL BUN/Creatinine Ratio 20.79 H (12.00-20.00) Ratio Glucose 143 H (70-110) mg/dL Calcium 7.8 L (8.7-10.3) mg/dL Assessment and Plan Assessment: Post Op Day 3: Right Hip Eddie-arthroplasty Fall with trauma Right Hip pain Right femoral neck fracture which is complete and displaced Plan: -Appreciate database consultant and team management. -Activity: Ambulate QID, OOB all meals, up and about, limit lifting bending twisting to less than 5 lbs. Use walker or cane if needed for stability. -Daily PT/OT, increase ambulation strength and balance. -Pain control: Adequate at this time -Meds: reviewed -GI ppx: senna, Miralax -DC tsang when up and about, bedside commode if needed -DVT PPX: Xarelto -Hygiene: Shower today. Maintain dressing clean and dry. -Encourage IS 10x/hr -Dispo: Anticipate discharge to [facility] when bed available *I reviewed and discussed this case with my attending Dr. Hoyos, whom has reviewed this chart and films and is in agreement with assessment and plan of care as outlined above. I have personally seen and examined the patient, performed the documentation and the assessment and plan as written. Number of minutes spent on the visit: 15m.
[2022-01-24] MEDS: SODIUM CHLORIDE 0.9% 1,000 ML IV SCH ×2 (10:30→12:22)
[2022-01-24] MEDS: polyethylene glycoL 3350 17 GM POWD.PACK PO SCH (10:31)
[2022-01-24] MEDS: LOSARTAN 50 MG TAB PO SCH (10:31)
--- NOTE | 2022-01-24 10:39 | P.DS ---
Providers Date of admission: 01/20/22 19:56 Expected date of discharge: 01/24/22 Attending physician: Shashi Hoyos DO Consults: 01/20/22 19:56 Consult Physician Routine Consulting Provider: Adrián Vigil Consult Reason/Comments: medicine consult Do you want consulting provider notified?: Yes Primary care physician: [facility] Course: Date of admission: 01/21/2022 Date of discharge: 01/24/2022 Admission diagnosis: Right hip femoral neck fracture Discharge diagnosis: Attending physician: Dr. Hoyos Surgical procedures: Right hip hemiarthroplasty Brief history: Patient is a 76-year-old female with a history of right hip femoral neck fracture. At this point patient has failed conservative treatment measures and has opted to proceed with a elective right hip hemiarthroplasty. Hospital course: Details of patient's surgery can be found in operative report. Patient tolerated the procedure well and was subsequently transported to orthopedic floor. Patient's orthopeidc and medical care was provided daily. Patient had daily laboratory tests performed for evaluation of overall blood counts. Patient had daily physical therapy to include strengthening range of motion as well as education with walker ambulation. Patient was treated with Xarelto/Lovenox for their postoperative DVT prophylaxis during their inpatient stay. Patient was noted to have a relatively uneventful postoperative course. Patient reported satisfactory pain control with oral pain medications by postoperative day 3. Patient showed satisfactory progress with physical therapy. Patient moved steadily through the program and had no difficulty meeting the goals by postoperative day 3. Given patient's otherwise satisfactor y course and having met physical therapy goals, plan is to discharge patient [facility] on postoperative day 3. Discharge condition/disposition: Patient will be discharged [facility] in stable condition. Discharge medications: Instructions are given on resumption of patient's normal daily medications per primary care recommendation, in addition patient will be prescribed W[place]rop; resume home medications. Discharge instructions: 1. Wound care and infection precautions, keep incision dry and covered while showering, no lotions, creams, moisturizers. No soaking, tubs, pools, hottubs. Do not scrub over the incision. 2. Weight-bear as tolerated with walker / cane until follow-up. 3. Ice and elevate when necessary. Do not exceed 20 minutes per hour with ice pack. 4. nursing care. 5. Physical therapy at rehab 6. Pain meds and anticoagulants per prescription. 7. Pain medication has potential to cause constipation. Increase oral fluid and fiber intake. Contact primary care provider if you have not had a bowel movement within 48 hours after discharge 8. No anti-inflammatory medication until discussed at first post operative visit, this including Motrin, Aleve, Mobic, Diclofenac, Aspirin. 9. Follow up in office at 2 weeks postop with Remi Lozoya PA-C / Murali Elena PA-C 10. Follow up with your primary care doctor 7-10 days after discharge. 11. Contact [facility] with any questions, . Assessment: Right hip femoral neck fracture Procedures: Right hip hemiarthroplasty Patient Condition at Discharge: Serious Plan - Discharge Summary New Discharge Prescriptions: New HYDROcodone/APAP 7.5-325MG [Winthrop 7.5] 1 each PO Q6HR PRN #28 tab PRN Reason: Pain polyethylene glycoL 3350 [Miralax] 17 gm PO DAILY packet Sennosides-Docusate Sodium [Senokot-S] 2 each PO HS tab Acetaminophen Tab [Tylenol] 650 mg PO Q6HR PRN tab PRN Reason: Mild Pain Or Fever > 100.5 Continue Omeprazole [PriLOSEC] 20 mg PO BID Citalopram Hydrobromide [CeleXA] 20 mg PO HS@1999 Atorvastatin [Lipitor] 40 mg PO HS Metoprolol Succinate (ER) [Toprol XL] 25 mg PO HS Salas/D3/Mag11/Zinc/Web Operations Manager/John/Bor [Caltrate 600+D Plus Tablet] 1 tab PO BID Losartan Potassium 50 mg PO DAILY Rivaroxaban [Xarelto] 20 mg PO DIRECTED Discharge Medication List Citalopram Hydrobromide [CeleXA] 20 mg PO HS@199910/07/14 [History] Omeprazole [PriLOSEC] 20 mg PO BID 10/07/14 [History] Salas/D3/Mag11/Zinc/Web Operations Manager/John/Bor [Caltrate 600+D Plus Tablet] 1 tab PO BID 08/05/21 [History] Metoprolol Succinate (ER) [Toprol XL] 25 mg PO HS 08/05/21 [History] Atorvastatin [Lipitor] 40 mg PO HS 01/20/22 [History] Losartan Potassium 50 mg PO DAILY 01/20/22 [History] Rivaroxaban [Xarelto] 20 mg PO DIRECTED 01/20/22 [History] Acetaminophen Tab [Tylenol] 650 mg PO Q6HR PRN tab 01/24/22 [Rx] HYDROcodone/APAP 7.5-325MG [Winthrop 7.5] 1 each PO Q6HR PRN #28 tab 01/24/22 [Rx] Sennosides-Docusate Sodium [Senokot-S] 2 each PO HS tab 01/24/22 [Rx] polyethylene glycoL 3350 [Miralax] 17 gm PO DAILY packet 01/24/22 [Rx] Follow up Appointment(s)/Referral(s): Milton La DO [Primary Care Provider] - 1-2 days Shashi Hoyos DO [Doctor of Osteopathic Medicine] - 2 Weeks Patient Instructions/Handouts: Hip Fracture (GEN) Activity/Diet/Wound Care/Special Instructions: Discharge instructions: 1. Wound care and infection precautions, keep incision dry and covered while showering, no lotions, creams, moisturizers. No soaking, tubs, pools, hottubs. Do not scrub over the incision. 2. Weight-bear as tolerated with walker / cane until follow-up. 3. Ice and elevate when necessary. Do not exceed 20 minutes per hour with ice pack. 4. nursing care. 5. Physical therapy at rehab 6. Pain meds and anticoagulants per prescription. 7. Pain medication has potential to cause constipation. Increase oral fluid and fiber intake. Contact primary care provider if you have not had a bowel movement within 48 hours after discharge 8. No anti-inflammatory medication until discussed at first post operative visit, this including Motrin, Aleve, Mobic, Diclofenac, Aspirin. 9. Follow up in office at 2 weeks postop with Remi Lozoya PA-C / Murali Elena PA-C 10. Follow up with your primary care doctor 7-10 days after discharge. 11. Contact [facility] with any questions, . Discharge Disposition: TRANSFER TO SNF/ECF
--- NOTE | 2022-01-24 12:58 | P.PN ---
Subjective Progress Note Date: 01/24/22 No new complaints today. Medically cleared for discharge. Gen: awake, alert HEENT: normocephalic, atraumatic, good hearing acuity, moist mucous membranes Resp: good air exchange, breathing comfortably with no accessory muscle use CVS: good distal perfusion x 4, GI: soft, NTTP, ND : no SPT, no CVAT, tsang catheter is present MSK: no pitting edema, no clubbing Neuro: non-focal, moving all extremities Psych: cooperative, euthymic mood Assessment/plan: 76-year-old female with right femoral fracture status post right total hip arthroplasty Acute blood loss anemia, anticipated outcome of surgery -Follow CBC -No indication for transfusion at this time Constipation -bowel regimen Probable postconcussive syndrome -Consult speech therapy for cognitive evaluation -Supportive care Atrial fibrillation, paroxysmal -Xarelto -Toprol Hypertension -Losartan, metoprolol -Follow blood pressures Dyslipidemia -Statin Thank you for allowing us to participate in the care of this pleasant patient. Do not hesitate to contact us with questions. Someone can be reached from the [facility] hospitalist group all hours of the day at [phone] or via [employer]. Objective - Vital Signs Vital signs: Vital Signs Temp 97.8 F 01/24/22 07:34 Pulse 98 01/24/22 07:34 Resp 17 01/24/22 07:34 BP 167/90 01/24/22 07:34 Pulse Ox 94 L 01/24/22 12:05 FiO2 6 01/21/22 14:30 Intake & Output 01/23/22 01/24/22 01/24/22 18:59 06:59 18:59 Intake Total 350 Output Total 400 300 Balance -50 -300 Intake: Oral 350 Output: Urine 400 300 Other: Voiding Method Indwelling Catheter Indwelling Catheter Indwelling Catheter - Labs CBC & Chem 7: 01/23/22 06:59 01/23/22 06:59
--- NOTE | 2022-01-25 08:41 | P.OP ---
Date of Procedure: 01/21/22 Preoperative Diagnosis: 1. Right femoral neck fracture, complete displaced 2. s/p ffs Postoperative Diagnosis: 1. Right femoral neck fracture, complete displaced 2. s/p ffs Procedure(s) Performed: 1. Right hip hemiarthroplasty (14632) Implants: [employer] polar stem Femoral stem size 4 Standard neck and head 47 bipolar Anesthesia: GETA Surgeon: Shashi Hoyos Medical Insurance Clerk #1: Julio C Lozoya (was present and assisted with a Jessicaksell case from positioning to closure) Estimated Blood Loss (ml): 75 IV fluids (ml): 500 Urine output (ml): 250 Pathology: none sent Condition: stable Disposition: PACU Indications for Procedure: Yoselin is a 76-year-old female presenting for evaluation of sudden onset right hip pain pain, inability to ambulate after fall off ladder. It was my pleasure to have seen and examined Yoselin. In our visit today we have had a chance to go over subjective complaints, physical examination findings and treatments including the natural course history without intervention and various interventional options. her imaging demonstrates right femoral neck fracture completely displaced. On physical exam, Yoselindemonstrates pain with motion of right lower extremity, which is NV intact at this time. I have explained to the patient that this fracture needs stabilization. Based on the patients imaging, physical exam, and the rapid progression and disabling nature of her symptoms, at this time I recommend surgery in the form or a: right hip hemiarthroplasty I discussed the risk and benefits of this procedure at length with Yoselin. Questions were invited and answered, and the patient wishes to proceed as outlined below. Currently, I am recommendin. right hip hemiarthroplasty Description of Procedure: The patient was seen and examined in the preoperative area. All preoperative protocols were followed. Informed consent was obtained risks and benefits of the procedure were discussed at length. Risks including bleeding infection damage to the surrounding tissue and risk of reoperation were discussed with the patient. Risk of anesthesia up to and including was a discussed with the patient. These are outlined in the risk reviewed. They were willing to accept these risks and all of the risks of surgery. The patient was given a weight- based dose of antibiotics in the form of 2 g Ancef. The patient was seen and evaluated by the anesthesia team who deemed them fit for surgery. The site was marked, the patient was willing to proceed with the procedure. The patient was transferred to the operative suite by the Department of anesthesia. There were then drifted off to sleep by the department of anesthesia and GETA anesthesia was used. Once adequate anesthesia had been obtained the patient was carefully transferred to the operative bed. All bony prominences were padded accordingly. SCDs were placed on the nonoperative lower extremities. Arms were well padded. with the right hip up on a pegboard well padded all bony incisions were padded accordingly. Preoperative briefing was done with the operative team and everyone was ready for the procedure to start. The patients Right leg was then prepped and draped in the normal sterile fashion. Timeout was then performed and all parties in agreement with the procedure to be performed. incision was made over the last the patient's right hip and standard posterior approach to the proximal femur was taken. Charmley retractor was placed deep to the tensor fascia. Then identify the posterior external rotators and these were released and tagged with tag stitch. Piriformis was released and tagged with a fixation as well. Capsulotomy was made in L-shaped form. Then dislocated the hip a cleanup cut was made 1 fingerbreadth above the lesser trochanter. Then removed the femoral head and measured it. We then trialed the bipolar cup and a 47 trial fit nicely. Then proceeded with preparation of the proximal femur. Box osteotome was used to axis the femur followed by a canal finder. Rasping was then used to widen this. We then sequentially broached until we reached a size 4 stem which was stable and in good position and lateralized. We then trialed this with a standard head and stem. The hip was atraumatic medically reduced and was stable throughout motion and had good leg lengths. We then selected final components for this. The hip was then dislocated and the broach remained stable. Removed the trial components thoroughly irrigated the wound bed as well as acetabular cup and femur. We then placed the final stem and impacted into place. Once it was in position we tested it was stable. Within p lace the bipolar head impacted it and it was stable. We then atraumatically reduced the hip to the range of motion and was stable throughout range of motion. Leg lengths were equal. We then again irrigated with Irricept in normal sterile saline. Posterior capsule closure was achieved. This is done with Ethibond stitch through drill holes in the posterior aspect of the greater trochanter. Then oversewed this with a Ethibond stitch. The tensor fascia was closed #1 Vicryl in a running locking fashion followed by 0 Vicryl in deep subcu tissue 2-0 Vicryl and superficial subcu tissue throughout strata fix and subcuticular tissue. The wound was then cleaned and dressed sterilely with an exofin tape and glue. It was dressed after the glue was dry with Optifoam dressing. The patient was placed in an abduction pillow. The patient was then transferred back to their hospital bed. There were awakened by department of anesthesia having tolerated the procedure very well with no complications. The patient was then transported to the postoperative care unit in stable condition.
== END 2022-01-24 13:29 | DRG 522 ==
LOC: EC 18:40 → 4SSUR 19:56
PROVIDERS: ADMIT Orthopaedic Surgery; ATTEND Orthopaedic Surgery
PROC: 0SRR0JA Replacement of Right Hip Joint, Femoral Surface with Synthetic Substitute, Uncemented, Open Approach (ICD-10-PCS; principal; 2022-01-21 11:00)
DX: S72.011A Unspecified intracapsular fracture of right femur, initial encounter for closed fracture (principal); D62 Acute posthemorrhagic anemia; I10 Essential (primary) hypertension; F07.81 Postconcussional syndrome; J84.10 Pulmonary fibrosis, unspecified; K59.00 Constipation, unspecified; E78.5 Hyperlipidemia, unspecified; I48.0 Paroxysmal atrial fibrillation; D72.829 Elevated white blood cell count, unspecified; R53.83 Other fatigue; W11.XXXA Fall on and from ladder, initial encounter; Z87.891 Personal history of nicotine dependence; Z28.310 Unvaccinated for COVID-19; Y92.008 Other place in unspecified non-institutional (private) residence as the place of occurrence of the external cause; Z79.899 Other long term (current) drug therapy; Z79.01 Long term (current) use of anticoagulants
CPT/HCPCS: 36415; 70450; 71045; 72125; 73502; 80048; 80053; 80306; 80320; 84132; 84484; 85025; 85027; 85610; 85730; 86850; 86900; 86901; 87635; 88305; 88311; 93005; 94760; 96361; 96374; 96375; 96376; 99285

== ENCOUNTER → 2022-06-03 | Outpatient (CLI) | payer MEDICARE ==
[2022-06-03 16:43] LABS: HCT 27.8 % (37.2-46.3); HGB 9.1 g/dL (12.0-15.0); MCH 31.8 pg (27.0-32.0); MCHC 32.7 g/dL (32.0-37.0); MCV 97.2 fL (80.0-97.0); Mean Platelet Volume 10.7 fL (9.5-12.2); NRBC Per 100 WBC 0 /100 WBCS (0.0-0.0); Platelet Count 286 X 10*3/uL (140-440); RBC 2.86 X 10*6/uL (4.10-5.20); RDW 14.7 % (11.5-14.5); WBC 8.86 X 10*3/uL (4.50-10.00)
== END | disposition home or self-care (01) ==
LOC: LABWHC1 09:32
PROVIDERS: ATTEND Internal Medicine Interventional Cardiology
DX: D50.0 Iron deficiency anemia secondary to blood loss (chronic) (principal)
CPT/HCPCS: 36415; 85027

== ENCOUNTER → 2023-02-02 | Outpatient (CLI) | payer MEDICARE ==
--- NOTE | 2023-02-02 14:09 | MM ---
Reason for Exam: Clinical finding. Last mammogram was performed 1 year(s) and 1 month(s) ago. Patient History: Menarche at age 17. First Full-Term at age 23. Left ovary removed at age 54. Right ovary removed at age 54. Hysterectomy at age 54. Postmenopausal. 10/02/2015, Benign Core Biopsy on the left side. 05/30/2010, Benign Core Biopsy on the left side. 12/24/2005, Benign Core Biopsy on the right side. Paternal aunt had breast cancer, age 50. Maternal aunt had breast cancer, age 50. Sister had breast cancer, age 44. Risk Values: Phoebe 5 year model risk: 4.6%. NCI Lifetime model risk: 9.2%. Prior Study Comparison: 09/13/2015 Bilateral Screening Mammogram, [facility]. 09/26/2015 Left Diagnostic Mammogram, [facility]. 09/22/2016 Bilateral Diagnostic Mammogram, [facility]. 01/03/2022 Bilateral MG 3D screening mammo w/cad, [facility]. Tissue Density: There are scattered fibroglandular densities. Findings: Analyzed By CAD. Pattern appears symmetrical and stable. Multiple groups of calcifications are scattered to the bilateral breasts. No significant interval changes are evident. Mammotome marker is present on the right. No suspicious groups of microcalcifications, spiculated or lobular masses, architectural distortion or other secondary signs of malignancy are mammographically apparent. Overall Assessment: Benign, BI-RAD 2 Management: Screening Mammogram of both breasts in 1 year. A negative mammogram report should not preclude additional follow up of suspicious palpable abnormalities. Patient should continue monthly self breast exam. A clinical breast exam by your physician is recommended on an annual basis and results should be correlated with mammographic findings. Electronically signed and approved by: Meng Archuleta D.O. Radiologis
== END | disposition home or self-care (01) ==
LOC: RADMAMWWP 13:34
PROVIDERS: ATTEND Family Medicine
DX: R92.323 Mammographic fibroglandular density, bilateral breasts (principal); N64.4 Mastodynia; Z78.0 Asymptomatic menopausal state; Z80.3 Family history of malignant neoplasm of breast
CPT/HCPCS: 77066; G0279; 77062

== ENCOUNTER → 2024-07-07 | Outpatient (CLI) | payer MEDICARE | END | disposition home or self-care (01) | LOC: LABWHC1 15:15 | PROVIDERS: ATTEND Orthopaedic Surgery | DX: M25.551 Pain in right hip (principal); M16.11 Unilateral primary osteoarthritis, right hip; Z96.641 Presence of right artificial hip joint; T84.84XA Pain due to internal orthopedic prosthetic devices, implants and grafts, initial encounter | CPT/HCPCS: 36415; 85379; 85652; 86140 ==